=== PATIENT | female | born 1970 | race Caucasian/White ===

== ENCOUNTER → 2016-04-27 | Outpatient (CLI) | payer OTHER ==
[2016-04-27 15:06] VITALS: BMI 35.7
[2016-04-27 15:37] VITALS: BP 146/77; PULSE 74; TEMP 99
--- NOTE | 2016-04-29 21:55 | PN ---
DATE OF SERVICE: 04/27/2016 CHIEF COMPLAINT: Followup, gastric bypass. HISTORY OF PRESENT ILLNESS: Pina Encinas is a 45-year-old female who is status post Joaquín-en-Y gastric bypass on 01/18/2016. She is now over 3 months out. Her highest weight for her 5-foot 4-inch frame was 289 pounds. [place] body weight is 144 pounds. Today she comes in weighing 208 pounds. Lifetime weight loss is already 81 pounds. Her weight loss since her last visit is another 22 pounds. Body mass index has been reduced from 49.7 to 35.8. Percent excess weight loss is 56%. Total BMI is already down by 13.9 points. She has a new diagnosis of psoriatic arthritis, where she had moderate joint involvement including erythema of the skin. She has been on a month-long steroid taper and has amazingly not gained any moderate or significant weight. Her laundry agent is Dr. Dos Santos. She does report some troubles with swallowing, particularly with moderate textured foods such as steak. She is overall very happy with her level of weight loss. She still has some troubles with her new image. Separately she also reports pain from her previous pelvic reconstruction at [facility], where she requires additional surgery. She reports eating expected amount of protein of over 65 grams daily. PAST MEDICAL HISTORY: 1. Morbid obesity. 2. Hypothyroidism. 3. Anxiety. 4. Depression. 5. Diabetes type 2. 6. Panniculitis. 7. Intra-abdominal adhesions 8. Chronic diarrhea. 9. Gastroesophageal reflux disease. 10. Pelvic adhesions. PAST SURGICAL HISTORY: 1. Partial thyroidectomy. 2. Hysterectomy. 3. Bladder suspension. 4. Upper endoscopy. 5. Colonoscopy. 6. Pelvic reconstruction at [facility] in March 2015. 7. Cardiac catheterization one week ago. 8. Status post Joaquín-en-Y gastric bypass 01/18/2016. MEDICATIONS: 1. Prednisone. 2. Wellbutrin. 3. Prilosec. 4. Nystatin powder. 5. Singulair. 6. Synthroid. 7. [place]. 8. Prozac. ALLERGIES: Initially PENICILLIN. SOCIAL HISTORY: Lifelong nontobacco user. FAMILY HISTORY: Pertinent for fatty liver disease including gallbladder disorders, also has morbid obesity in her family. REVIEW OF ORGAN SYSTEMS: CONSTITUTIONAL: Highest weight of 289 pounds. [place] body weight 144 pounds for her 5-foot, 4-inch frame. Present weight of 208 pounds. Total weight loss of 81 pounds. Percent excess weight loss of 56%. Body mass index reduced from 49.7 to 35.7. ENDOCRINE: History of hypothyroidism. MUSCULOSKELETAL: Improvement of diffuse osteoarthritis of the joints, particularly in knees, hips and hands, after being treated for psoriatic arthritis with a prednisone taper. PSYCH: Still persistent history of depression. CARDIOVASCULAR: Improvement of hypertension, where she is now off medications related to her hypertension. GASTROINTESTINAL: Denies any gastroesophageal reflux disease, as it has now resolved. Only concerns include intermittent dysphagia, particularly with textured foods. RESPIRATORY: History of obstructive sleep apnea. ENDOCRINE: History of hypothyroidism including diabetes type 2. GENITOURINARY: History of pelvic reconstruction. Also history of bladder prolapse. HEENT: Denies troubles with vision or hearing. NEURO: Has headache and seizure disorders. HEMATOLOGIC: Denies any easy bruising. PHYSICAL EXAM: VITAL SIGNS: 99.0, 74, 16, 146/77, 5 feet 4 inches, 208 pounds. Body mass index 35.8. ABDOMEN: No palpable incisional hernias. All incisions completely granulated. Soft, nontender, nondistended. GENERAL: Well-developed female in no acute distress. NEURO: No focal or lateralizing signs. Cranial nerves II through XII grossly within normal limits. PSYCH: Appropriate affect. Alert and oriented to person, place, and time. HEENT: No scleral icterus. NECK: Supple without lymphadenopathy. CHEST: Nonlabored respirations. CARDIOVASCULAR: Regular rate. MUSCULOSKELETAL: No clubbing, cyanosis, or edema. ASSESSMENT: 1. Morbid obesity due to excess calories. 2. Body mass index reduced from 49.7 to 35.8. 3. Status post Joaquín-en-Y gastric bypass. 4. Dietary surveillance and counseling. 5. Psoriatic arthritis. 6. Dysphagia to solid foods. 7. Active steroid exposure. 8. Osteoarthritis, improved. 9. Hypothyroidism. 10. Depression. 11. Elevated liver enzymes. 12. Fatty liver disease. 13. Vitamin D deficiency. 14. History of a bladder suspension. 15. Diabetes type 2, his-iiegndi-tqczausji, now resolved. 16. Obstructive sleep apnea, now resolved. 17. Gastroesophageal reflux disease, now resolved. 18. Hypertensive heart disease, now resolved. PLAN: 1. She has been doing quite well as of recent after a fairly tyrese postoperative course with abdominal pain from skin infection, which has completely resolved. 2. She will be closely monitored, as she is on steroid therapy, and would recommend continued Prilosec use. 3. She is to undergo additional surgical intervention for the pelvis, whereby she is cleared from a bariatric standpoint to proceed. 4. I have recommended a bariatric metabolic panel to identify any nutritional deficiencies which will interfere with her wound healing. 5. With her dysphagia to solid textured foods, she may also benefit from upper endoscopy with balloon dilatation. 6. Recommend followup at [facility]. DEL
== END | disposition home or self-care (01) ==
LOC: BARWHC3 13:49
PROVIDERS: ATTEND Surgery Plastic and Reconstructive Surgery
DX: Z48.815 Encounter for surgical aftercare following surgery on the digestive system (principal); Z71.3 Dietary counseling and surveillance; E66.01 Morbid (severe) obesity due to excess calories; Z68.35 Body mass index [BMI] 35.0-35.9, adult; E21.1 Secondary hyperparathyroidism, not elsewhere classified; E89.1 Postprocedural hypoinsulinemia; D50.8 Other iron deficiency anemias; E44.0 Moderate protein-calorie malnutrition; E55.9 Vitamin D deficiency, unspecified; Z98.84 Bariatric surgery status; K74.1 Hepatic sclerosis; N19 Unspecified kidney failure; K50.90 Crohn's disease, unspecified, without complications; L40.50 Arthropathic psoriasis, unspecified; Z79.899 Other long term (current) drug therapy; Z88.0 Allergy status to penicillin; R13.10 Dysphagia, unspecified; T75.89XA Other specified effects of external causes, initial encounter; X58.XXXA Exposure to other specified factors, initial encounter; M19.90 Unspecified osteoarthritis, unspecified site; E03.9 Hypothyroidism, unspecified; F32.9 Major depressive disorder, single episode, unspecified; R79.89 Other specified abnormal findings of blood chemistry; K76.0 Fatty (change of) liver, not elsewhere classified; Z98.890 Other specified postprocedural states
CPT/HCPCS: 97803; G0463; 99211

== ENCOUNTER → 2016-06-29 | Outpatient (CLI) | payer OTHER ==
[2016-06-29 16:44] VITALS: BP 162/95; PULSE 88; TEMP 98.5; BMI 33.7
--- NOTE | 2016-07-26 22:44 | P.PN ---
Progress Note - Text DATE OF SERVICE: 06/29/2016. CHIEF COMPLAINT: Follow-up gastric bypass. HISTORY OF PRESENT ILLNESS: Pina Encinas is a 45-year-old female who is status post Joaquín-en-Y gastric bypass on 01/18/2016. She is now 6 months out. For her height of 5 foot 4 inches, her ideal body weight is 144 pounds. Today she comes in weighing 196 pounds. Her highest weight was 289 pounds. She has already lost 93 pounds. Body mass index was reduced from 49.7 down to 33.8. BMI point reduction is 16 points. She has already achieved 64% weight loss in 6 months. Since her last visit approximately a little over 4+ months ago she has lost another 12 pounds. She comes in primarily with complaints of decreased appetite. She is now under 200 pounds. She was diagnosed with rheumatoid arthritis, which she sees a rubber molder. Now she presents for further evaluation and management. She also reports moderate personal stressors in her life which is also affecting her blood pressure. She is off CPAP machine as well. PAST MEDICAL HISTORY: 1. Morbid obesity. 2. Hypothyroidism. 3. Anxiety. 4. Depression. 5. Diabetes type 2. 6. Panniculitis. 7. Intra-abdominal adhesions 8. Chronic diarrhea. 9. Gastroesophageal reflux disease. 10. Rheumatoid Arthritis. PAST SURGICAL HISTORY: 1. Partial thyroidectomy. 2. Hysterectomy. 3. Bladder suspension. 4. Upper endoscopy. 5. Colonoscopy. 6. Pelvic reconstruction at [facility] in March 2015. 7. Cardiac catheterization one week ago. 8. Status post Joaquín-en-Y gastric bypass. MEDICATIONS: 1. Hyzaar. 2. Prednisone. 3. Wellbutrin. 4. Prilosec. 5. Nystatin powder. 6. Singulair. 7. Synthroid. 8. Prozac. ALLERGIES: Resolved PENICILLIN. SOCIAL HISTORY: Lifelong nontobacco user. FAMILY HISTORY: Pertinent for fatty liver disease including gallbladder disorders, also has morbid obesity in her family. REVIEW OF SYSTEMS: CONSTITUTIONAL: Highest weight is 289 pounds. [place] body weight of 144 pounds. She has lost 93 pound in the last 6 months. Percent excess weight loss is 64%. Body mass index is reduced from 49.7 down to 33.8. Total BMI point reduction is 16 points. She is only 52 pounds overweight. RESPIRATORY: She is to discontinue her CPAP machine. Sleep apnea has now resolved. CARDIOVASCULAR: She is on blood pressure medication secondary to minor stress in her life. MUSCULOSKELETAL: Moderate reduction of bilateral hip and knee and lower back pain. Rheumatologic: Diagnosed with rheumatoid arthritis. Currently on steroids as a result. GASTROINTESTINAL: No reports of gastroesophageal reflux which is resolved. Denies dumping syndrome otherwise. ENDOCRINE: History of hypothyroidism including diabetes type 2 now resoled. GENITOURINARY: History of pelvic reconstruction. Also history of bladder prolapse. HEENT: Denies troubles with vision or hearing. NEURO: Has headache and seizure disorders. PSYCH: Has anxiety including depression. HEMATOLOGIC: Denies any easy bruising. PHYSICAL EXAM: VITAL SIGNS: 98.5, 88, 162/95, 5 foot 4, 196 pounds. Body mass index of 33.8. ABDOMEN: Soft, nontender, nondistended. No palpable incisional hernias. Pannus extends over pubis by at least 5 cm. Mild hyperemia consistent with panniculitis. GENERAL: Well-developed female in no acute distress. NEURO: No focal or lateralizing signs. Cranial nerves II through XII grossly within normal limits. PSYCH: Appropriate affect. Alert and oriented to person, place, and time. HEENT: No scleral icterus. Extraocular movements grossly intact. No nasal drainage. NECK: Supple without lymphadenopathy. CHEST: Nonlabored respirations. CARDIOVASCULAR: Regular rate. Regular rhythm. MUSCULOSKELETAL: No clubbing, cyanosis, or edema. ASSESSMENT: 1. Morbid obesity due to excess calories, now resolved. 2. Body mass index reduced from 49.7 down to 33.8. 3. Osteoarthritis. 4. Hypothyroidism. 5. Depression. 6. Elevated liver enzymes, improved. 7. Fatty liver disease. 8. Vitamin D deficiency. 9. Obesity with body mass index is 33.8. 10. History of intra-abdominal adhesions. 11. Left ovarian cyst. 12. History of a bladder suspension. 13. Diabetes type 2, [id number]. 14. Obstructive sleep apnea. 15. Gastroesophageal reflux disease, resolved. 17. History of atypical chest pain. 18. Hypertensive heart disease. 19. Osteoarthritis, improved.. 20. Status post Joaquín-en-Y gastric bypass. 21. Social stressors aggravating hypertension. 22. Osteoarthritis lower back, improved. 23. Osteoarthritis of bilateral hips, improved. 24. Osteoarthritis bilateral knees, improved. 25. Panniculitis. PLAN: 1. Recommend bariatric metabolic panel as she is long overdue. She reports having her blood work done at her local facility. However, blood work is still pending at this time. 2. She is also pending additional procedures for pelvic surgery which she has been cleared. 3. On exam, she has panniculitis for which nystatin powder is advised.
== END | disposition home or self-care (01) ==
LOC: BARWHC3 15:22
PROVIDERS: ATTEND Surgery Plastic and Reconstructive Surgery
DX: Z48.815 Encounter for surgical aftercare following surgery on the digestive system (principal); E66.9 Obesity, unspecified; Z68.33 Body mass index [BMI] 33.0-33.9, adult; Z98.84 Bariatric surgery status; Z71.3 Dietary counseling and surveillance; I11.9 Hypertensive heart disease without heart failure; M47.896 Other spondylosis, lumbar region; M16.0 Bilateral primary osteoarthritis of hip; M17.0 Bilateral primary osteoarthritis of knee; M79.3 Panniculitis, unspecified; Z79.899 Other long term (current) drug therapy; M06.9 Rheumatoid arthritis, unspecified
CPT/HCPCS: 97803; G0463; 99211

== ENCOUNTER → 2016-10-19 | Outpatient (CLI) | payer OTHER ==
--- NOTE | 2016-10-19 16:56 | P.PN ---
Progress Note - Text Patient left without being seen.
== END | disposition home or self-care (01) ==
LOC: BARWHC3 14:22
PROVIDERS: ATTEND Surgery Plastic and Reconstructive Surgery
DX: Z53.9 Procedure and treatment not carried out, unspecified reason (principal)

== ENCOUNTER → 2016-11-09 | Outpatient (CLI) | payer OTHER ==
[2016-11-09 14:56] VITALS: BP 143/69; PULSE 71; TEMP 98; BMI 31.9
[2016-11-09 15:55] LABS: CH 30.3; CHCM 33.4; HCT 37.8 % (34.0-46.0); HDW 2.35; HGB 12.4 gm/dL (11.4-16.0); MCH 29.9 pg (25.0-35.0); MCHC 32.8 g/dL (31.0-37.0); MCV 91.2 fL (80.0-100.0); Mean Platelet Volume 7.9; RBC 4.14 m/uL (3.80-5.40); RDW 14.8 % (11.5-15.5); WBC 7.3 k/uL (3.8-10.6)
[2016-11-09 16:18] LABS: Prothrombin Time 10.5 sec (9.0-12.0)
[2016-11-09 17:34] LABS: ALT 44 U/L (9-52); AST 40 U/L (14-36); Alkaline Phosphatase 58 U/L (38-126); Anion Gap 10 mmol/L; Blood Urea Nitrogen 15 mg/dL (7-17); Calcium 9.8 mg/dL (8.4-10.2); Carbon Dioxide 28 mmol/L (22-30); Chloride 102 mmol/L (98-107); Cholesterol 165 mg/dL (<200); Glucose 79 mg/dL (74-99); HDL Cholesterol 49 mg/dL (40-60); Iron 57 ug/dL (37-170); Magnesium 2.1 mg/dL (1.6-2.3); Non-African American GFR(MDRD) >60 (>60 ml/min/1.73 sqM); Phosphorus 4.5 mg/dL (2.5-4.5); Potassium 4.4 mmol/L (3.5-5.1); Sodium 140 mmol/L (137-145); Total Bilirubin 0.5 mg/dL (0.2-1.3); Total Protein 6.9 g/dL (6.3-8.2)
[2016-11-09 17:42] LABS: % Iron Saturation 14.7 % (20-50); Total Iron Binding Capacity 389 ug/dL (265-497)
[2016-11-09 18:21] LABS: Hemoglobin A1C 5.5 % (4.2-6.1)
[2016-11-09 18:36] LABS: Vitamin B12 792 pg/mL (239-931)
[2016-11-12 20:57] LABS: Selenium 153 mcg/L (63-160)
--- NOTE | 2016-12-17 14:30 | P.PN ---
Progress Note - Text DATE OF SERVICE: 11/09/2016. CHIEF COMPLAINT: Follow-up gastric bypass. HISTORY OF PRESENT ILLNESS: Pina Encinas is a 47-year-old female who is status post Joaquín-en-Y gastric bypass on 01/18/2016. She is now 9 months out. For her height of 5 foot 4 inches, her ideal body weight is 144 pounds. Today she comes in weighing 186 pounds. Her highest weight was 289 pounds. She has already lost 103 pounds. Body mass index was reduced from 49.7 down to 31.9. She has achieved 71% excess weight loss. She has lost another 11 pounds in 4 months. She has had long-standing problems with mesh removal from a bladder suspension surgery. In fact, she is to undergo another procedure. Her main concern today includes chronic panniculitis of her pannus. She has been on prescribed powders and medicated creams without improvement in her symptoms for over 1 year. She is evaluating for panniculectomy. No reports of nausea or vomiting. No reports of reflux disease. Her depression is stable. PAST MEDICAL HISTORY: 1. Morbid obesity. 2. Hypothyroidism. 3. Anxiety. 4. Depression. 5. Diabetes type 2. 6. Panniculitis. 7. Intra-abdominal adhesions 8. Chronic diarrhea. 9. Gastroesophageal reflux disease. 10. Rheumatoid Arthritis. PAST SURGICAL HISTORY: 1. Partial thyroidectomy. 2. Hysterectomy. 3. Bladder suspension. 4. Upper endoscopy. 5. Colonoscopy. 6. Pelvic reconstruction at [facility] in March 2015. 7. Cardiac catheterization one week ago. 8. Status post Joaquín-en-Y gastric bypass. MEDICATIONS: 1. Hyzaar. 2. Wellbutrin. 3. Prilosec. 4. Nystatin powder. 5. Singulair. 6. Synthroid. 7. Prozac. ALLERGIES: Resolved PENICILLIN. SOCIAL HISTORY: Lifelong nontobacco user. FAMILY HISTORY: Pertinent for fatty liver disease including gallbladder disorders, also has morbid obesity in her family. REVIEW OF SYSTEMS: CONSTITUTIONAL: For her height of 5 foot 4 inches, her ideal body weight is 144 pounds. Today she comes in weighing 186 pounds. Her highest weight was 289 pounds. She has already lost 103 pounds. Body mass index was reduced from 49.7 down to 31.9. She has achieved 71% excess weight loss. She has lost another 11 pounds in 4 months. RESPIRATORY: Has asthma. Sleep apnea has now resolved. CARDIOVASCULAR: She is on blood pressure medication secondary to minor stress in her life. MUSCULOSKELETAL: Moderate reduction of bilateral hip and knee and lower back pain. RHEUMATOLOGIC: Diagnosed with rheumatoid arthritis. GASTROINTESTINAL: No reports of gastroesophageal reflux which is resolved. Denies dumping syndrome otherwise. ENDOCRINE: History of hypothyroidism. Diabetes type 2 now resoled. GENITOURINARY: History of pelvic reconstruction. Also history of bladder prolapse. HEENT: Denies troubles with vision or hearing. NEURO: Has headache and seizure disorders. PSYCH: Has anxiety including depression. HEMATOLOGIC: Denies any easy bruising. PHYSICAL EXAM: VITAL SIGNS: 186 pounds. Body mass index of 31.9. Vital Signs Temp 98 F 11/09/16 14:50 Pulse 71 11/09/16 14:50 Resp BP 143/69 11/09/16 14:50 Pulse Ox ABDOMEN: Soft, nontender, nondistended. No palpable incisional hernias. Pannus extends over pubis with hyperemia consistent with panniculitis. Weight of pannus, over 5 pounds. GENERAL: Well-developed female in no acute distress. NEURO: No focal or lateralizing signs. Cranial nerves II through XII grossly within normal limits. PSYCH: Appropriate affect. Alert and oriented to person, place, and time. HEENT: No scleral icterus. Extraocular movements grossly intact. No nasal drainage. NECK: Supple without lymphadenopathy. CHEST: Nonlabored respirations. CARDIOVASCULAR: Regular rate. Regular rhythm. MUSCULOSKELETAL: No clubbing, cyanosis, or edema. SKIN: Good skin turgor. Well perfused. ASSESSMENT: 1. Morbid obesity due to excess calories, now resolved. 2. Body mass index reduced from 49.7 down to 31.9. 4. Hypothyroidism. 5. Depression. 6. Elevated liver enzymes, improved. 7. Fatty liver disease. 8. Vitamin D deficiency. 9. History of intra-abdominal adhesions. 10. Diabetes type 2, [id number], resolved. 11. Obstructive sleep apnea, resolved. 12. Gastroesophageal reflux disease, resolved. 13. Hypertensive heart disease, resolved. 14. Status post Joaquín-en-Y gastric bypass. 15. Osteoarthritis lower back, improved. 16. Osteoarthritis of bilateral hips, improved. 17. Osteoarthritis bilateral knees, improved. 18. Panniculitis. PLAN: 1. Recommend bariatric metabolic panel. 2. She has chronic panniculitis with treatment over one year without improvement. Recommend evaluation for panniculectomy. 3. She is due to undergo additional pelvic surgery. She will need clearance from her pelvic surgery including at least 30 days between procedures. 4. She is less than 1 year out from her procedure and will reevaluate after her anniversary of 1 year, January 2017. 5. Thyroid level suppressed, recommend adjusting her Synthroid. Laboratory Last Values WBC 7.3 k/uL (3.8-10.6) 11/09/16 15:37 RBC 4.14 m/uL (3.80-5.40) 11/09/16 15:37 Hgb 12.4 gm/dL (11.4-16.0) 11/09/16 15:37 Hct 37.8 % (34.0-46.0) 11/09/16 15:37 MCV 91.2 fL (80.0-100.0) 11/09/16 15:37 MCH 29.9 pg (25.0-35.0) 11/09/16 15:37 MCHC 32.8 g/dL (31.0-37.0) 11/09/16 15:37 RDW 14.8 % (11.5-15.5) 11/09/16 15:37 Plt Count 252 k/uL (150-450) 11/09/16 15:37 PT 10.5 sec (9.0-12.0) 11/09/16 15:37 INR 1.0 (<1.2) 11/09/16 15:37 APTT 25.0 sec (22.0-30.0) 11/09/16 15:37 Sodium 140 mmol/L (137-145) 11/09/16 15:37 Potassium 4.4 mmol/L (3.5-5.1) 11/09/16 15:37 Chloride 102 mmol/L (98-107) 11/09/16 15:37 Carbon Dioxide 28 mmol/L (22-30) 11/09/16 15:37 Anion Gap 10 mmol/L 11/09/16 15:37 BUN 15 mg/dL (7-17) 11/09/16 15:37 Creatinine 0.70 mg/dL (0.52-1.04) 11/09/16 15:37 Est GFR (MDRD) Af Amer >60 (>60 ml/min/1.73 sqM) 11/09/16 15:37 Est GFR (MDRD) Non-Af >60 (>60 ml/min/1.73 sqM) 11/09/16 15:37 Glucose 79 mg/dL (74-99) 11/09/16 15:[address] Glu mg/dL 111 mg/dL 11/09/16 15:37 Hemoglobin A1c 5.5 % (4.2-6.1) 11/09/16 15:37 Calcium 9.8 mg/dL (8.4-10.2) 11/09/16 15:37 Phosphorus 4.5 mg/dL (2.5-4.5) 11/09/16 15:37 Magnesium 2.1 mg/dL (1.6-2.3) 11/09/16 15:37 Iron 57 ug/dL (37-170) 11/09/16 15:37 TIBC 389 ug/dL (265-497) 11/09/16 15:37 % Saturation 14.7 % (20-50) L 11/09/16 15:37 Ferritin 54.9 ng/mL (10.0-291.0) 11/09/16 15:37 Total Bilirubin 0.5 mg/dL (0.2-1.3) 11/09/16 15:37 AST 40 U/L (14-36) H 11/09/16 15:37 ALT 44 U/L (9-52) 11/09/16 15:37 Alkaline Phosphatase 58 U/L (38-126) 11/09/16 15:37 Total Protein 6.9 g/dL (6.3-8.2) 11/09/16 15:37 Albumin 4.3 g/dL (3.5-5.0) 11/09/16 15:37 Prealbumin 17.0 mg/dL (18.0-42.0) L 11/09/16 15:37 Triglycerides 89 mg/dL (<150) 11/09/16 15:37 Cholesterol 165 mg/dL (<200) 11/09/16 15:37 LDL Cholesterol, Calc 98 mg/dL (0-99) 11/09/16 15:37 HDL Cholesterol 49 mg/dL (40-60) 11/09/16 15:37 Vitamin A 38 ug/dL (38-106) 11/09/16 15:37 Vitamin B1 102 ug/L (38-122) 11/09/16 15:37 Vitamin B12 792 pg/mL (239-931) 11/09/16 15:37 Vitamin D 25-Hydroxy 31.3 ng/mL (30.0-100.0) 11/09/16 15:37 Folate >20.00 ng/mL (>2.75) 11/09/16 15:37 TSH 0.074 mIU/L (0.465-4.680) L 11/09/16 15:37 PTH Intact 54.9 pg/mL (14.0-72.0) 11/09/16 15:37 Copper 1498 ug/L (810-1990) 11/09/16 15:37 Selenium 153 mcg/L (63-160) 11/09/16 15:37 Zinc 60 ug/dL (60-130) 11/09/16 15:37
== END | disposition home or self-care (01) ==
LOC: BARWHC3 13:59
PROVIDERS: ATTEND Surgery Plastic and Reconstructive Surgery
DX: Z09 Encounter for follow-up examination after completed treatment for conditions other than malignant neoplasm (principal); E66.01 Morbid (severe) obesity due to excess calories; Z68.31 Body mass index [BMI] 31.0-31.9, adult; E03.9 Hypothyroidism, unspecified; F32.9 Major depressive disorder, single episode, unspecified; K76.0 Fatty (change of) liver, not elsewhere classified; M79.3 Panniculitis, unspecified; F41.9 Anxiety disorder, unspecified; Z88.0 Allergy status to penicillin; Z79.899 Other long term (current) drug therapy; Z87.19 Personal history of other diseases of the digestive system; Z98.84 Bariatric surgery status
CPT/HCPCS: 84255; 84134; 84425; 80061; 80053; 82607; 82728; 83036; 82525; 82746; 83540; 83550; 83735; 84100; 84443; 84590; 84630; 85027; 85610; 85730; 82306; 83970; 36415; G0463; 99201

== ENCOUNTER → 2017-02-01 | Outpatient (CLI) | payer OTHER ==
[2017-02-01 14:57] VITALS: BP 147/72; PULSE 70; RESP 18; TEMP 98.2; BMI 30.2
--- NOTE | 2017-04-01 23:22 | P.PN ---
Subjective Progress Note Date: 02/01/17 DATE OF SERVICE: 02/01/2017. CHIEF COMPLAINT: Follow-up gastric bypass. HISTORY OF PRESENT ILLNESS: Pina Encinas is a 46-year-old female who is status post Joaquín-en-Y gastric bypass on 01/18/2016. She is now 1 year out. For her height of 5 foot 4 inches, her ideal body weight is 144 pounds. Today she comes in weighing 176 pounds. Her highest weight was 289 pounds. She has already lost 113 pounds. Body mass index was reduced from 49.7 down to 30.2. She has achieved 78% excess weight loss. She has lost another 10 pounds in 3 months. Separately, she has had multiple surgeries for mesh removal from her pelvis. She is less than 20 pounds away from her personal goal. She is undergoing physical therapy of her pelvis. She has other concerns including chronic panniculitis for a year. She is evaluating for a panniculectomy. PAST MEDICAL HISTORY: 1. Morbid obesity. 2. Hypothyroidism. 3. Anxiety. 4. Depression. 5. Diabetes type 2. 6. Panniculitis. 7. Intra-abdominal adhesions 8. Chronic diarrhea. 9. Gastroesophageal reflux disease. 10. Rheumatoid Arthritis. 11. Asthma. 12. Hypertensive heart disease. PAST SURGICAL HISTORY: 1. Partial thyroidectomy. 2. Hysterectomy. 3. Bladder suspension. 4. Upper endoscopy. 5. Colonoscopy. 6. Pelvic reconstruction at [facility] in March 2015. 7. Cardiac catheterization one week ago. 8. Status post Joaquín-en-Y gastric bypass. MEDICATIONS: 1. Methotrexate. 2. Folic acid. 3. Humira. 4. Prilosec. 5. Singulair. 6. Hyzaar. 7. Synthroid. 8. Prozac. 9. Nystatin Powder. ALLERGIES: Resolved PENICILLIN. SOCIAL HISTORY: Lifelong nontobacco user. FAMILY HISTORY: Pertinent for fatty liver disease including gallbladder disorders, also has morbid obesity in her family. REVIEW OF SYSTEMS: CONSTITUTIONAL: For her height of 5 foot 4 inches, her ideal body weight is 144 pounds. Today she comes in weighing 176 pounds. Her highest weight was 289 pounds. She has already lost 113 pounds. Body mass index was reduced from 49.7 down to 30.2. She has achieved 78% excess weight loss. She has lost another 10 pounds in 3 months. RESPIRATORY: Has asthma. Sleep apnea has now resolved. CARDIOVASCULAR: She is on blood pressure medication secondary to minor stress in her life. MUSCULOSKELETAL: Moderate reduction of bilateral hip and knee and lower back pain. RHEUMATOLOGIC: Diagnosed with rheumatoid arthritis. GASTROINTESTINAL: No reports of gastroesophageal reflux which is resolved. Denies dumping syndrome otherwise. ENDOCRINE: History of hypothyroidism. Diabetes type 2 now resoled. GENITOURINARY: History of pelvic reconstruction. Also history of bladder prolapse. HEENT: Denies troubles with vision or hearing. NEURO: Has headache and seizure disorders. PSYCH: Has anxiety including depression. HEMATOLOGIC: Denies any easy bruising. PHYSICAL EXAM: VITAL SIGNS: 176 pounds. Body mass index of 30.2. Vital Signs Temp 98.2 F 02/01/17 14:55 Pulse 70 02/01/17 14:55 Resp 18 02/01/17 14:55 BP 147/72 02/01/17 14:55 Pulse Ox ABDOMEN: Soft, nontender, nondistended. No palpable incisional hernias. Pannus extends over pubis with hyperemia consistent with panniculitis. Weight of pannus, over 8 pounds. GENERAL: Well-developed female in no acute distress. NEURO: No focal or lateralizing signs. Cranial nerves II through XII grossly within normal limits. PSYCH: Appropriate affect. Alert and oriented to person, place, and time. HEENT: No scleral icterus. Extraocular movements grossly intact. No nasal drainage. NECK: Supple without lymphadenopathy. CHEST: Nonlabored respirations. Equal bilateral excursions. CARDIOVASCULAR: Regular rate. Regular rhythm. 2+ radial pulses. MUSCULOSKELETAL: No clubbing, cyanosis, or edema. SKIN: Good skin turgor. Well perfused. ASSESSMENT: 1. Morbid obesity due to excess calories, now resolved. 2. Body mass index reduced from 49.7 down to 30.2.. 4. Hypothyroidism. 5. Depression. 6. Elevated liver enzymes, improved. 7. Fatty liver disease. 8. Vitamin D deficiency. 9. History of intra-abdominal adhesions. 10. Diabetes type 2, [id number]-uohootkis, resolved. 11. Obstructive sleep apnea, resolved. 12. Gastroesophageal reflux disease, resolved. 13. Hypertensive heart disease, resolved. 14. Status post Joaquín-en-Y gastric bypass. 15. Osteoarthritis lower back, improved. 16. Osteoarthritis of bilateral hips, improved. 17. Osteoarthritis bilateral knees, improved. 18. Panniculitis. PLAN: 1. She has chronic panniculitis for over one year. Despite medical treatment, recommend panniculectomy. 2. Benefits and risks panniculectomy including bleeding, infection, flap failure reviewed in detail. 3. Recommend that she obtain goal weight loss prior to panniculectomy. 4. Inpatient hospitalization overnight advised. 5. DVT prophylaxis. 6. Antibiotic prophylaxis. 7. As she is 1 year out, recommend bariatric metabolic panel. Objective - Vital Signs Vital signs: Vital Signs Temp 98.2 F 02/01/17 14:55 Pulse 70 02/01/17 14:55 Resp 18 02/01/17 14:55 BP 147/72 02/01/17 14:55 Pulse Ox Intake & Output 01/31/17 02/01/17 02/01/17 18:59 06:59 18:59 Weight 79.923 kg
== END | disposition home or self-care (01) ==
LOC: BARWHC3 13:33
PROVIDERS: ATTEND Surgery Plastic and Reconstructive Surgery
DX: E66.01 Morbid (severe) obesity due to excess calories (principal); E03.9 Hypothyroidism, unspecified; F32.9 Major depressive disorder, single episode, unspecified; K76.0 Fatty (change of) liver, not elsewhere classified; E55.9 Vitamin D deficiency, unspecified; E11.9 Type 2 diabetes mellitus without complications; M16.0 Bilateral primary osteoarthritis of hip; M17.0 Bilateral primary osteoarthritis of knee; M79.3 Panniculitis, unspecified; F41.9 Anxiety disorder, unspecified; Z87.19 Personal history of other diseases of the digestive system; Z98.84 Bariatric surgery status; Z68.42 Body mass index [BMI] 45.0-49.9, adult; Z90.710 Acquired absence of both cervix and uterus; Z79.899 Other long term (current) drug therapy; Z72.0 Tobacco use
CPT/HCPCS: 97803; G0463; 99211

== ENCOUNTER → 2017-03-29 | Outpatient (CLI) | payer OTHER ==
[2017-03-29 16:19] VITALS: BP 112/74; PULSE 80; TEMP 98.2; BMI 29.9
--- NOTE | 2017-05-20 15:37 | P.PN ---
Subjective Progress Note Date: 03/29/17 DATE OF SERVICE: 03/29/2017. CHIEF COMPLAINT: Follow-up gastric bypass. HISTORY OF PRESENT ILLNESS: Pina Encinas is a 46-year-old female who is status post Joaquín-en-Y gastric bypass on 01/18/2016. She is now 1.5 years out. For her height of 5 foot 4 inches, her ideal body weight is 144 pounds. Today she comes in weighing 174 pounds. Her highest weight was 289 pounds. She has already lost 115 pounds. Body mass index was reduced from 49.7 down to 30.0. She has achieved 79% excess weight loss. She has lost another 2 pounds in 3 months. She reports chronic panniculitis despite treatment over 1-1/2 years. Separately, she has been treated for rheumatoid arthritis. She is currently on a Britni once every 2 weeks including methotrexate. She is now evaluating for panniculectomy. No reports of gastroesophageal reflux disease. No reports of hypertension. PAST MEDICAL HISTORY: 1. Morbid obesity. 2. Hypothyroidism. 3. Anxiety. 4. Depression. 5. Diabetes type 2. 6. Panniculitis. 7. Intra-abdominal adhesions 8. Chronic diarrhea. 9. Gastroesophageal reflux disease. 10. Rheumatoid Arthritis. 11. Asthma. 12. Hypertensive heart disease. PAST SURGICAL HISTORY: 1. Partial thyroidectomy. 2. Hysterectomy. 3. Bladder suspension. 4. Upper endoscopy. 5. Colonoscopy. 6. Pelvic reconstruction at [facility] in March 2015. 7. Cardiac catheterization one week ago. 8. Status post Joaquín-en-Y gastric bypass. MEDICATIONS: 1. Methotrexate. 2. Folic acid. 3. Humira. 4. Prilosec. 5. Singulair. 6. Hyzaar. 7. Synthroid. 8. Prozac. 9. Nystatin Powder. ALLERGIES: Resolved PENICILLIN. SOCIAL HISTORY: Lifelong nontobacco user. FAMILY HISTORY: Pertinent for fatty liver disease including gallbladder disorders, also has morbid obesity in her family. REVIEW OF SYSTEMS: CONSTITUTIONAL: For her height of 5 foot 4 inches, her ideal body weight is 144 pounds. Today she comes in weighing 174 pounds. Her highest weight was 289 pounds. She has already lost 115 pounds. Body mass index was reduced from 49.7 down to 30.0. She has achieved 79% excess weight loss. She has lost another pounds in 3 months. RESPIRATORY: Has asthma. Sleep apnea has resolved. CARDIOVASCULAR: She is on blood pressure medication secondary to minor stress in her life. MUSCULOSKELETAL: Moderate reduction of bilateral hip and knee and lower back pain. RHEUMATOLOGIC: Diagnosed with rheumatoid arthritis. GASTROINTESTINAL: No reports of gastroesophageal reflux which is resolved. Denies dumping syndrome otherwise. ENDOCRINE: History of hypothyroidism. Diabetes type 2 now resoled. GENITOURINARY: History of pelvic reconstruction. Also history of bladder prolapse. HEENT: Denies troubles with vision or hearing. NEURO: Has headache and seizure disorders. PSYCH: Has anxiety including depression. HEMATOLOGIC: Denies any easy bruising. PHYSICAL EXAM: VITAL SIGNS: 174 pounds. Body mass index of 30. Vital Signs Temp 98.2 F 03/29/17 16:16 Pulse 80 03/29/17 16:16 Resp BP 112/74 03/29/17 16:16 Pulse Ox ABDOMEN: Soft, nontender, nondistended. No palpable incisional hernias. Pannus extends over pubis with hyperemia consistent with panniculitis. Weight of pannus, over 9 to 10 pounds. GENERAL: Well-developed female in no acute distress. NEURO: No focal or lateralizing signs. Cranial nerves II through XII grossly within normal limits. PSYCH: Appropriate affect. Alert and oriented to person, place, and time. HEENT: No scleral icterus. Extraocular movements grossly intact. No nasal drainage. NECK: Supple without lymphadenopathy. CHEST: Nonlabored respirations. Equal bilateral excursions. CARDIOVASCULAR: Regular rate. Regular rhythm. 2+ radial pulses. MUSCULOSKELETAL: No clubbing, cyanosis, or edema. SKIN: Good skin turgor. Well perfused. ASSESSMENT: 1. Morbid obesity due to excess calories, now resolved. 2. Body mass index reduced from 49.7 down to 30. 4. Hypothyroidism. 5. Depression. 6. Elevated liver enzymes, improved. 7. Fatty liver disease. 8. Vitamin D deficiency. 9. History of intra-abdominal adhesions. 10. Diabetes type 2, [id number], resolved. 11. Obstructive sleep apnea, resolved. 12. Gastroesophageal reflux disease, resolved. 13. Hypertensive heart disease, resolved. 14. Status post Joaquín-en-Y gastric bypass. 15. Osteoarthritis lower back, improved. 16. Osteoarthritis of bilateral hips, improved. 17. Osteoarthritis bilateral knees, improved. 18. Panniculitis. PLAN: 1. She has chronic panniculitis despite medical treatment. 2. Benefits and risks panniculectomy including bleeding, infection, flap failure reviewed in detail. 3. Recommend panniculectomy. 4. Inpatient hospitalization overnight advised. 5. DVT prophylaxis. 6. Antibiotic prophylaxis. Objective - Vital Signs Vital signs: Vital Signs Temp 98.2 F 03/29/17 16:16 Pulse 80 03/29/17 16:16 Resp BP 112/74 03/29/17 16:16 Pulse Ox Intake & Output 03/28/17 03/29/17 03/29/17 18:59 06:59 18:59 Weight 79.197 kg
== END | disposition home or self-care (01) ==
LOC: BARWHC3 14:32
PROVIDERS: ATTEND Surgery Plastic and Reconstructive Surgery
DX: Z09 Encounter for follow-up examination after completed treatment for conditions other than malignant neoplasm (principal); M79.3 Panniculitis, unspecified; E66.01 Morbid (severe) obesity due to excess calories; M16.0 Bilateral primary osteoarthritis of hip; M17.0 Bilateral primary osteoarthritis of knee; K76.0 Fatty (change of) liver, not elsewhere classified; M47.9 Spondylosis, unspecified; E03.9 Hypothyroidism, unspecified; E55.9 Vitamin D deficiency, unspecified; F41.9 Anxiety disorder, unspecified; R79.89 Other specified abnormal findings of blood chemistry; F32.9 Major depressive disorder, single episode, unspecified; K66.0 Peritoneal adhesions (postprocedural) (postinfection); K52.9 Noninfective gastroenteritis and colitis, unspecified; M06.9 Rheumatoid arthritis, unspecified; J45.909 Unspecified asthma, uncomplicated; Z98.84 Bariatric surgery status; Z79.899 Other long term (current) drug therapy; Z72.0 Tobacco use; Z68.30 Body mass index [BMI] 30.0-30.9, adult
CPT/HCPCS: 99211

== ENCOUNTER → 2017-06-28 | Outpatient (CLI) | payer OTHER ==
[2017-06-28 18:09] VITALS: BP 142/75; PULSE 82; RESP 15; TEMP 98.5; BMI 30.5
--- NOTE | 2017-07-15 21:27 | P.PN ---
Subjective Progress Note Date: 06/28/17 DATE OF SERVICE: 06/28/2017 CHIEF COMPLAINT: Follow-up gastric bypass. HISTORY OF PRESENT ILLNESS: Pina Encinas is a 46-year-old female who is status post Joaquín-en-Y gastric bypass on 01/18/2016. She is now 1.5 years out. She reports undergoing more pelvic surgery for mesh removal over 6 weeks ago. He pelvic pain has improved. She reports troubles with her pannus which has been long-standing for over 2 years. She has been using Nystatin powder for over one half years. She reports limitation of movement including exercise as a result of her pannus. She reports lower back pain and painful sores of her abdomen. Now she is evaluating for panniculectomy. No reports of dumping syndrome. For her height of 5 foot 4 inches, her ideal body weight is 144 pounds. Today she comes in weighing 178 pounds. Her highest weight was 289 pounds. She has lost 111 pounds. Body mass index was reduced from 49.7 down to 30.5. She has achieved 77% excess weight loss. She has gained 3 pounds in 3 months. PAST MEDICAL HISTORY: 1. Morbid obesity, BMI 49.7 initial 2. Hypothyroidism. 3. Anxiety. 4. Depression. 5. Diabetes type 2. 6. Panniculitis. 7. Intra-abdominal adhesions 8. Chronic diarrhea. 9. Gastroesophageal reflux disease. 10. Rheumatoid Arthritis. 11. Asthma. 12. Hypertensive heart disease. PAST SURGICAL HISTORY: 1. Partial thyroidectomy. 2. Hysterectomy. 3. Bladder suspension. 4. Upper endoscopy. 5. Colonoscopy. 6. Pelvic reconstruction at [facility] in March 2015. 7. Cardiac catheterization one week ago. 8. Status post Joaquín-en-Y gastric bypass. MEDICATIONS: 1. Methotrexate. 2. Folic acid. 3. Humira. 4. Prilosec. 5. Singulair. 6. Hyzaar. 7. Synthroid. 8. Prozac. 9. Nystatin Powder. ALLERGIES: Resolved PENICILLIN. SOCIAL HISTORY: Lifelong nontobacco user. FAMILY HISTORY: Pertinent for fatty liver disease including gallbladder disorders, also has morbid obesity in her family. REVIEW OF SYSTEMS: CONSTITUTIONAL: For her height of 5 foot 4 inches, her ideal body weight is 144 pounds. Today she comes in weighing 178 pounds. Her highest weight was 289 pounds. She has lost 111 pounds. Body mass index was reduced from 49.7 down to 30.5. She has achieved 77% excess weight loss. She has gained 3 pounds in 3 months. RESPIRATORY: Has asthma. Sleep apnea has resolved. CARDIOVASCULAR: She is on blood pressure medication secondary to minor stress in her life. MUSCULOSKELETAL: Moderate reduction of bilateral hip and knee and lower back pain. RHEUMATOLOGIC: Diagnosed with rheumatoid arthritis. GASTROINTESTINAL: No reports of gastroesophageal reflux which is resolved. Denies dumping syndrome otherwise. ENDOCRINE: History of hypothyroidism. Diabetes type 2 now resoled. GENITOURINARY: History of pelvic reconstruction. Also history of bladder prolapse. HEENT: Denies troubles with vision or hearing. NEURO: Has headache and seizure disorders. PSYCH: Has anxiety including depression. HEMATOLOGIC: Denies any easy bruising. PHYSICAL EXAM: VITAL SIGNS: 178 pounds. Height 5 ft 4 inches. Body mass index of 30.5. Vital Signs Temp 98.5 F 06/28/17 17:54 Pulse 82 06/28/17 17:54 Resp 15 06/28/17 17:54 BP 142/75 06/28/17 17:54 Pulse Ox ABDOMEN: Soft, nontender, nondistended. Hyperemia of the pannus. Weight of pannus over 10 pounds. Pannus over pubis 6 cm GENERAL: Well-developed female in no acute distress. NEURO: No focal or lateralizing signs. Cranial nerves II through XII grossly within normal limits. PSYCH: Appropriate affect. Alert and oriented to person, place, and time. HEENT: No scleral icterus. Extraocular movements grossly intact. No nasal drainage. NECK: Supple without lymphadenopathy. CHEST: Nonlabored respirations. Equal bilateral excursions. CARDIOVASCULAR: Regular rate. Regular rhythm. 2+ radial pulses. MUSCULOSKELETAL: No clubbing, cyanosis, or edema. SKIN: Good skin turgor. Well perfused. ASSESSMENT: 1. Morbid obesity due to excess calories, now resolved. 2. Body mass index reduced from 49.7 down to 30.5. 4. Hypothyroidism. 5. Depression. 6. Elevated liver enzymes, improved. 7. Fatty liver disease. 8. Vitamin D deficiency. 9. History of intra-abdominal adhesions. 10. Diabetes type 2, [id number], resolved. 11. Obstructive sleep apnea, resolved. 12. Gastroesophageal reflux disease, resolved. 13. Hypertensive heart disease, resolved. 14. Status post Joaquín-en-Y gastric bypass. 15. Osteoarthritis lower back, improved. 16. Osteoarthritis of bilateral hips, improved. 17. Osteoarthritis bilateral knees, improved. 18. Panniculitis. PLAN: 1. She has a lifestyle limiting chronic infections of her pannus. Despite nystatin powder over one year, she still has symptoms. 2. Recommend panniculectomy. Benefits and risks bleeding, infection, flap failure described in detail. Placement of drains were described. 3. DVT prophylaxis. 4. Antibiotic prophylaxis. 5. Will need at minimum of 4-6 weeks of recovery.
== END | disposition home or self-care (01) ==
LOC: BARWHC3 14:48
PROVIDERS: ATTEND Surgery Plastic and Reconstructive Surgery
DX: Z09 Encounter for follow-up examination after completed treatment for conditions other than malignant neoplasm (principal); E03.9 Hypothyroidism, unspecified; F32.9 Major depressive disorder, single episode, unspecified; R74.8 Abnormal levels of other serum enzymes; K76.0 Fatty (change of) liver, not elsewhere classified; E55.9 Vitamin D deficiency, unspecified; M19.90 Unspecified osteoarthritis, unspecified site; M17.0 Bilateral primary osteoarthritis of knee; M16.0 Bilateral primary osteoarthritis of hip; M79.3 Panniculitis, unspecified; Z98.84 Bariatric surgery status; Z87.19 Personal history of other diseases of the digestive system; Z79.899 Other long term (current) drug therapy
CPT/HCPCS: 99211

== ENCOUNTER → 2017-08-09 | Outpatient (CLI) | payer OTHER ==
[2017-08-09 15:57] LABS: Basophils # (A) 0.1 k/uL (0-0.2); Basophils % (A) 1 %; Eosinophils # (A) 0.2 k/uL (0-0.7); Eosinophils % (A) 3 %; HCT 36.9 % (34.0-46.0); HGB 12.3 gm/dL (11.4-16.0); Lymphocytes # (A) 2.5 k/uL (1.0-4.8); Lymphocytes % (A) 30 %; MCH 29.2 pg (25.0-35.0); MCHC 33.5 g/dL (31.0-37.0); MCV 87.3 fL (80.0-100.0); Mean Platelet Volume 7.1; Monocytes # (A) 0.5 k/uL (0-1.0); Monocytes % (A) 6 %; Neutrophils # (A) 4.9 k/uL (1.3-7.7); Neutrophils % (A) 59 %; Platelet Count 324 k/uL (150-450); RBC 4.23 m/uL (3.80-5.40); RDW 13.3 % (11.5-15.5); WBC 8.3 k/uL (3.8-10.6)
[2017-08-09 16:39] LABS: ALT 39 U/L (9-52); AST 38 U/L (14-36); Albumin 4.5 g/dL (3.5-5.0); Alkaline Phosphatase 45 U/L (38-126); Anion Gap 13 mmol/L; Blood Urea Nitrogen 21 mg/dL (7-17); Carbon Dioxide 29 mmol/L (22-30); Chloride 100 mmol/L (98-107); Glucose 81 mg/dL (74-99); Potassium 4.6 mmol/L (3.5-5.1); Sodium 142 mmol/L (137-145); Total Bilirubin 0.6 mg/dL (0.2-1.3); Total Protein 7.1 g/dL (6.3-8.2)
== END | disposition home or self-care (01) ==
LOC: LABPAT 15:22
PROVIDERS: ATTEND Surgery Plastic and Reconstructive Surgery
DX: Z01.812 Encounter for preprocedural laboratory examination (principal)
CPT/HCPCS: 36415; 80053; 85025

== ENCOUNTER 2017-08-21 12:32 | Inpatient (IN) | payer OTHER ==
[2017-08-08 10:55] VITALS: BMI 29.7
--- NOTE | 2017-08-20 12:06 | P.GSHP ---
History of Present Illness H&P Date: 08/21/17 DATE OF SERVICE: 08/21/2017 CHIEF COMPLAINT: Panniculitis HISTORY OF PRESENT ILLNESS: Pina Encinas is a 46-year-old female who is status post Joaquín-en-Y gastric bypass on 01/18/2016. She is over 1.5 years out. She reports troubles with her pannus which has been long- standing for over 2 years. She has been using Nystatin powder for over one half years. She reports limitation of movement including exercise as a result of her pannus. She reports lower back pain and painful sores of her abdomen. Now she is evaluating for panniculectomy. For her height of 5 foot 4 inches, her ideal body weight is 144 pounds. Today she comes in weighing 178 pounds. Her highest weight was 289 pounds. She has lost 111 pounds. Body mass index was reduced from 49.7 down to 30.5. She has achieved 77% excess weight loss. PAST MEDICAL HISTORY: 1. Morbid obesity, BMI 49.7 initial 2. Hypothyroidism. 3. Anxiety. 4. Depression. 5. Diabetes type 2. 6. Panniculitis. 7. Intra-abdominal adhesions 8. Chronic diarrhea. 9. Gastroesophageal reflux disease. 10. Rheumatoid Arthritis. 11. Asthma. 12. Hypertensive heart disease. PAST SURGICAL HISTORY: 1. Partial thyroidectomy. 2. Hysterectomy. 3. Bladder suspension. 4. Upper endoscopy. 5. Colonoscopy. 6. Pelvic reconstruction at [facility] in March 2015. 7. Cardiac catheterization one week ago. 8. Status post Joaquín-en-Y gastric bypass. MEDICATIONS: 1. Methotrexate. 2. Folic acid. 3. Humira. 4. Prilosec. 5. Singulair. 6. Hyzaar. 7. Synthroid. 8. Prozac. 9. Nystatin Powder. ALLERGIES: Resolved PENICILLIN. SOCIAL HISTORY: Lifelong nontobacco user. FAMILY HISTORY: Pertinent for fatty liver disease including gallbladder disorders, also has morbid obesity in her family. REVIEW OF SYSTEMS: CONSTITUTIONAL: For her height of 5 foot 4 inches, her ideal body weight is 144 pounds. Today she comes in weighing 178 pounds. Her highest weight was 289 pounds. She has lost 111 pounds. Body mass index was reduced from 49.7 down to 30.5. She has achieved 77% excess weight loss. She has gained 3 pounds in 3 months. RESPIRATORY: Has asthma. Sleep apnea has resolved. CARDIOVASCULAR: She is on blood pressure medication secondary to minor stress in her life. MUSCULOSKELETAL: Moderate reduction of bilateral hip and knee and lower back pain. RHEUMATOLOGIC: Diagnosed with rheumatoid arthritis. GASTROINTESTINAL: No reports of gastroesophageal reflux which is resolved. Denies dumping syndrome otherwise. ENDOCRINE: History of hypothyroidism. Diabetes type 2 now resoled. GENITOURINARY: History of pelvic reconstruction. Also history of bladder prolapse. HEENT: Denies troubles with vision or hearing. NEURO: Has headache and seizure disorders. PSYCH: Has anxiety including depression. HEMATOLOGIC: Denies any easy bruising. PHYSICAL EXAM: VITAL SIGNS: 178 pounds. Height 5 ft 4 inches. Body mass index of 30.5. ABDOMEN: Soft, nontender, nondistended. Hyperemia of the pannus. Weight of pannus over 10 pounds. Pannus over pubis 6 cm GENERAL: Well-developed female in no acute distress. NEURO: No focal or lateralizing signs. Cranial nerves II through XII grossly within normal limits. PSYCH: Appropriate affect. Alert and oriented to person, place, and time. HEENT: No scleral icterus. Extraocular movements grossly intact. No nasal drainage. NECK: Supple without lymphadenopathy. CHEST: Nonlabored respirations. Equal bilateral excursions. CARDIOVASCULAR: Regular rate. Regular rhythm. 2+ radial pulses. MUSCULOSKELETAL: No clubbing, cyanosis, or edema. SKIN: Good skin turgor. Well perfused. ASSESSMENT: 1. Morbid obesity due to excess calories, now resolved. 2. Body mass index reduced from 49.7 down to 30.5. 4. Hypothyroidism. 5. Depression. 6. Elevated liver enzymes, improved. 7. Fatty liver disease. 8. Vitamin D deficiency. 9. History of intra-abdominal adhesions. 10. Diabetes type 2, [id number], resolved. 11. Obstructive sleep apnea, resolved. 12. Gastroesophageal reflux disease, resolved. 13. Hypertensive heart disease, resolved. 14. Status post Joaquín-en-Y gastric bypass. 15. Osteoarthritis lower back, improved. 16. Osteoarthritis of bilateral hips, improved. 17. Osteoarthritis bilateral knees, improved. 18. Panniculitis. PLAN: 1. She has a lifestyle limiting chronic infections of her pannus. Despite nystatin powder over one year, she still has symptoms. 2. Recommend panniculectomy. Benefits and risks bleeding, infection, flap failure described in detail. Placement of drains were described. 3. DVT prophylaxis. 4. Antibiotic prophylaxis. 5. Will need at minimum of 4-6 weeks of recovery. Past Medical History Past Medical History: Asthma, Chest Pain / Angina, Diabetes Mellitus, Fibromyalgia, GERD/Reflux, Hyperlipidemia, Hypertension, Osteoarthritis (OA), Sleep Apnea/CPAP/BIPAP, Thyroid Disorder Additional Past Medical History / Comment(s): USES C-PAP MACHINE, DDD WITH BACK PAIN, FATTY LIVER. ,TORN LT ROTATOR CUFF 2016 History of Any Multi-Drug Resistant Organisms: None Reported Past Surgical History: Appendectomy, Bariatric Surgery, Bladder Surgery, Cholecystectomy, Heart Catheterization, Hysterectomy, Tubal Ligation Additional Past Surgical History / Comment(s): partial thyroidectomy, bladder suspension w/mesh (as of 06/28/17 patient has since undergone sx 4x to have various portions of mesh removed), sinus repair surgery, bilateral knee surgery (meniscus, femur fracture on rt) 01-18-16 JOAQUÍN EN Y GASTRIC BYPASS, EGD, COLONOSCOPY Past Anesthesia/Blood Transfusion Reactions: Family History of Problems w/ Anesthesia, Motion Sickness Additional Past Anesthesia/Blood Transfusion Reaction / Comment(s): Pt has difficulty waking up. Very difficult intubation. Pts grandmother has difficulty waking and also difficult intubation. Smoking Status: Never smoker - Past Family History Mother Family Medical History: Cancer Additional Family Medical History / Comment(s): Breast CA Father Family Medical History: Cancer, CVA/TIA Additional Family Medical History / Comment(s): - stroke Medications and Allergies Home Medications Medication Instructions Recorded Confirmed Type Levothyroxine Sodium [Synthroid] 150 mcg PO DAILY 05/16/14 08/08/17 History Nystatin 100,000 Unit/gm Powd 1 applic TOPICAL BID PRN 05/16/14 08/08/17 History [Mycostatin Powder] Omeprazole [PriLOSEC] 40 mg PO DAILY 01/02/16 08/08/17 History FLUoxetine HCL [PROzac] 40 mg PO DAILY 01/25/16 08/08/17 History Losartan-Hctz 50-12.5 mg [Hyzaar 1 tab PO DAILY 06/29/16 08/08/17 History 50-12.5] Adalimumab [Humira] 10 mg SQ Q14D 02/01/17 08/08/17 History Folic Acid 0.4 mg PO DAILY 02/01/17 08/08/17 History Methotrexate Sodium [Methotrexate] 17.5 mg PO FR 02/01/17 08/08/17 History Gabapentin [Neurontin] 300 mg PO DAILY 06/28/17 08/08/17 History Cetirizine HCl [Zyrtec] 10 mg PO HS 08/08/17 08/08/17 History Multivitamins, Thera [Multivitamin 1 tab PO DAILY 08/08/17 08/08/17 History (formulary)] Vit B12 Dose Unknown 1 each PO DAILY 08/08/17 History Vit B6 Stress Formula 1 each PO DAILY 08/08/17 History Allergies Allergy/AdvReac Type Severity Reaction Status Date / Time No Known Allergies Allergy Verified 08/08/17 10:47
[~2017-08-21 12:32] MED LIST: ACETAMINOPHEN IV (For NPO) 1,000 MG in EMPTY BAG 1 BAG IVPB ONE; DEXAMETHASONE SOD PHOSPHATE 10 MG/ML 1 ML VIAL IV ONE; HEPARIN SODIUM,PORCINE 5,000 UNIT/ML 1 ML VIAL SQ ONE; LIDOCAINE 1% 20 ML VIAL (10MG/ML) FOR IV START INTRADERMA PRN; MIDAZOLAM 2 MG/2 ML VIAL IV PRN; SCOPOLAMINE 1.5MG/72HR PATCH TRANSDERM ONE; ceFAZolin IN SWFI 2 GM/20 ML SYRINGE IVP ONE; fentaNYL (PF) 50 MCG/ML 2 ML AMP IV PRN
[2017-08-21 13:16] LABS: Glucose,Whole Blood 82 mg/dL (75-99)
[2017-08-21] MEDS: LACTATED RINGERS 1,000 ML IV SCH ×2 (13:17→17:21)
[2017-08-21] MEDS ORDERED: LIDOCAINE 1% 20 ML VIAL (10MG/ML) FOR IV START INTRADERMA ONE (13:36)
[2017-08-21] MEDS: ONDANSETRON 4 MG/2 ML VIAL IVP ONE ×2 (13:36→16:55)
[2017-08-21] MEDS ORDERED: DEXAMETHASONE SOD PHOSPHATE 10 MG/ML 1 ML VIAL IV ONE (13:37)
[2017-08-21] MEDS ORDERED: SCOPOLAMINE 1.5MG/72HR PATCH TRANSDERM ONE (13:38)
[2017-08-21] MEDS ORDERED: GLYCOPYRROLATE 0.2 MG/ML 2 ML VIAL ONE (14:00)
[2017-08-21] MEDS ORDERED: LIDOCAINE 1% INJ 10MG/ML (20 ML MDV) ONE (14:00)
[2017-08-21] MEDS ORDERED: HYDROmorphone (PF) 1 MG/ML ONE (14:00)
[2017-08-21] MEDS ORDERED: ePHEDrine SULFATE/0.9% NACL/PF 50 MG/5 ML SYRINGE IV ONE (14:00)
[2017-08-21] MEDS ORDERED: SUCCINYLCHOLINE CHLORIDE 100 MG/5 ML SYR IV ONE (14:00)
[2017-08-21] MEDS ORDERED: ROCURONIUM BROMIDE 10 MG/ML 10 ML VIAL IV ONE (14:00)
[2017-08-21] MEDS ORDERED: PROPOFOL 10 MG/ML 20 ML VIAL IV ONE (14:00)
[2017-08-21] MEDS ORDERED: fentaNYL (PF) 50 MCG/ML 2 ML AMP ONE (14:00)
[2017-08-21] MEDS ORDERED: NEOSTIGMINE 1 MG/ML 10 ML VIAL ONE (14:00)
[2017-08-21] MEDS ORDERED: LACTATED RINGERS 1,000 ML IV ONE ×2 (14:29→16:13)
[2017-08-21] MEDS: HYDROmorphone 0.5 MG/0.5 ML SYRINGE IVP PRN ×4 (16:38→21:18)
--- NOTE | 2017-08-21 16:43 | P.PCN ---
Date of Procedure: 08/21/17 Preoperative Diagnosis: Adiposis panniculus, Central adiposity, panniculitis Postoperative Diagnosis: Same, ventral hernia 11 x 18 cm, reducible, initial unrelated to previous bariatric procedure Procedure(s) Performed: Panniculectomy, 4.52 pounds, ventral hernia repair without mesh 11 x 18 cm Anesthesia: JEFFERY Surgeon: Halina Joseph Contract Administrative Assistant #1: Jaron Kevin Estimated Blood Loss (ml): 400 Pathology: other (Panniculectomy) Condition: stable Disposition: floor Operative Findings: 1. Ventral hernia repair with fascial imbrication 3 2. Pannus, 4.52 pounds excised
[2017-08-21] MEDS ORDERED: TRIMETHOBENZAMIDE 100 MG/ML 2 ML VIAL IM PRN (16:44)
[2017-08-21] MEDS ORDERED: NALOXONE 0.4 MG/ML 1 ML VIAL IV PRN (16:45)
[2017-08-21] MEDS ORDERED: diphenhydrAMINE 50 MG/ML 1 ML VIAL IVP ONE (16:58)
[2017-08-21] MEDS: 0.9% NACL WITH KCL 20 MEQ/L 1,000 ML IV SCH (18:51)
[2017-08-21] MEDS: HYDROcodone/APAP 5-325MG 1 EACH TAB PO SCH ×2 (19:45→23:50)
[2017-08-21] MEDS: LORATADINE 10 MG TAB PO SCH (19:46)
[2017-08-21] MEDS: ONDANSETRON 4 MG/2 ML VIAL IVP PRN (19:46)
[2017-08-21] MEDS: ceFAZolin IN SWFI 2 GM/20 ML SYRINGE IVP SCH (21:19)
[2017-08-22] MEDS: HYDROmorphone 0.5 MG/0.5 ML SYRINGE IVP PRN ×6 (00:17→22:20)
[2017-08-22] MEDS: 0.9% NACL WITH KCL 20 MEQ/L 1,000 ML IV SCH ×3 (00:34→16:15)
[2017-08-22] MEDS: HYDROcodone/APAP 5-325MG 1 EACH TAB PO SCH ×6 (03:52→23:31)
[2017-08-22] MEDS: LEVOTHYROXINE 75 MCG TAB PO SCH (05:44)
[2017-08-22] MEDS: ceFAZolin IN SWFI 2 GM/20 ML SYRINGE IVP SCH (05:44)
[2017-08-22 07:05] LABS: Basophils % (A) 0 %; Eosinophils # (A) 0.1 k/uL (0-0.7); Eosinophils % (A) 1 %; HCT 32.6 % (34.0-46.0); HGB 10.2 gm/dL (11.4-16.0); Lymphocytes # (A) 1.6 k/uL (1.0-4.8); Lymphocytes % (A) 14 %; MCH 28.2 pg (25.0-35.0); MCHC 31.4 g/dL (31.0-37.0); Mean Platelet Volume 6.7; Monocytes # (A) 0.7 k/uL (0-1.0); Monocytes % (A) 6 %; Neutrophils # (A) 8.8 k/uL (1.3-7.7); Neutrophils % (A) 77 %; Platelet Count 286 k/uL (150-450); RBC 3.63 m/uL (3.80-5.40); RDW 13.6 % (11.5-15.5); WBC 11.4 k/uL (3.8-10.6)
[2017-08-22] MEDS: FLUoxetine HCL 20 MG CAP PO SCH (07:58)
[2017-08-22] MEDS: ENOXAPARIN 40 MG/0.4 ML SYRINGE SQ SCH (07:58)
[2017-08-22] MEDS: GABAPENTIN 300 MG CAP PO SCH (07:59)
[2017-08-22] MEDS: FOLIC ACID 1 MG TAB PO SCH (07:59)
[2017-08-22] MEDS: LOSARTAN-HCTZ 50-12.5 MG 1 EACH TAB PO SCH (10:50)
--- NOTE | 2017-08-22 11:31 | P.PN ---
<GurvinderClareHilaria M - Last Filed: 08/22/17 11:03> Subjective Progress Note Date: 08/22/17 46-year-old female seen and examined at bedtime no new events. Patient reports having surgical discomfort pain medication effective for pain control. Patient is postop Panniculectomy, 4.52 pounds, ventral hernia repair without mesh due to Adiposis panniculus, Central adiposity, panniculitis patient is status post eren-en-y gastric bypass December 2015. White count 11.4 hemoglobin 10 afebrile heart rate 60s to 80s sats on 2 L 98% Objective - Vital Signs Vital signs: Vital Signs Temp 97.3 F L 08/22/17 07:00 Pulse 63 08/22/17 07:00 Resp 16 08/22/17 07:00 BP 107/60 08/22/17 07:00 Pulse Ox 98 08/22/17 07:45 Intake & Output 08/21/17 08/22/17 08/22/17 18:59 06:59 18:59 Intake Total 2350 1725 Output Total 600 665 250 Balance 1750 1060 -250 Weight 76.204 kg Intake: IV 2350 Intake, IV Titration 1725 Amount 0.9% NaCl with KCl 20 Meq 1725 /l 1,000 ml @ 150 mls/hr IV [facility]6H40M [facility] Rx#: [id number] Output: Drainage 50 165 Right abdomen 10 60 left abdomen 40 105 Urine 150 500 250 Uretheral (Lu) 500 250 Estimated Blood Loss 400 Other: Voiding Method Indwelling Catheter Indwelling Catheter - Exam Physical exam 46-year-old female sitting up on the edge of the bed physical therapy at the bedside Lungs adequate air movement bilaterally Heart S1-S2 audible regular Abdomen abdominal binder in place with ABRAHAM drain in place Extremities no edema noted - Labs CBC & Chem 7: 08/22/17 06:36 Labs: Abnormal Lab Results - Last 24 Hours (Table) 08/22/17 Range/Units 06:36 WBC 11.4 H (3.8-10.6) k/uL RBC 3.63 L (3.80-5.40) m/uL Hgb 10.2 L (11.4-16.0) gm/dL Hct 32.6 L (34.0-46.0) % Neutrophils # 8.8 H (1.3-7.7) k/uL Assessment and Plan Assessment: Impression Status post August 21 Panniculectomy, 4.52 pounds removed, ventral hernia repair without mesh 11 x 18 cm Adiposis panniculus, Central adiposity, panniculitis Status post Eren-en-Y gastric bypass 01/18/2016 History of morbid obesity initial BMI 49 Anxiety depressive disorder Rheumatoid arthritis Hypothyroid Achieved 77% excessive weight loss BMI initially 49 down to 30 Plan Continue postop surgical care Do not remove the abdominal binder PT OT eval Pain control Home meds as appropriate DVT and GI prophylaxis Anticipate discharge in the next 24 hours Increase activity The above impression and plan of care have been discussed and directed by signing physician. Hilaria Hollins nurse practitioner acting as scribe for signing physician. <Halina Joseph N - Last Filed: 08/23/17 20:15> Objective - Vital Signs Vital signs: Vital Signs Temp 99.8 F H 08/23/17 19:25 Pulse 76 08/23/17 19:25 Resp 18 08/23/17 19:25 BP 145/85 08/23/17 19:25 Pulse Ox 92 L 08/23/17 19:25 Intake & Output 08/23/17 08/23/17 08/24/17 06:59 18:59 06:59 Intake Total 1630 500 Output Total 915 1525 Balance 715 -1025 Intake: Intake, IV Titration 1150 Amount 0.9% NaCl with KCl 20 Meq 1150 /l 1,000 ml @ 150 mls/hr IV .Q6H40M [facility] Rx#: [id number] Oral 480 500 Output: Drainage 165 50 Right abdomen 100 25 left abdomen 65 25 Urine 750 1475 Straight 750 Uretheral (Lu) 1175 Other: Voiding Method Indwelling Catheter - Labs CBC & Chem 7: 08/22/17 22:36 Labs: Abnormal Lab Results - Last 24 Hours (Table) 08/22/17 Range/Units 22:36 RBC 3.33 L (3.80-5.40) m/uL Hgb 9.6 L (11.4-16.0) gm/dL Hct 29.6 L (34.0-46.0) %
[2017-08-22] MEDS: MULTIVITAMINS, THERA 1 EACH TAB PO SCH (11:57)
[2017-08-22] MEDS: LACTATED RINGERS 1,000 ML IV SCH (12:51)
[2017-08-22] MEDS: TAMSULOSIN 0.4 MG CAP.ER.24H PO SCH (16:51)
[2017-08-22] MEDS: LORATADINE 10 MG TAB PO SCH (19:51)
[2017-08-22] MEDS ORDERED: TAMSULOSIN 0.4 MG CAP.ER.24H PO STA (22:00)
[2017-08-22 22:56] LABS: HCT 29.6 % (34.0-46.0); HGB 9.6 gm/dL (11.4-16.0); MCH 28.8 pg (25.0-35.0); MCHC 32.4 g/dL (31.0-37.0); MCV 88.8 fL (80.0-100.0); Mean Platelet Volume 6.7; Platelet Count 222 k/uL (150-450); RBC 3.33 m/uL (3.80-5.40)
[2017-08-23] MEDS: ONDANSETRON 4 MG/2 ML VIAL IVP PRN ×2 (02:05→12:24)
[2017-08-23] MEDS: HYDROcodone/APAP 5-325MG 1 EACH TAB PO SCH ×2 (03:55→07:54)
[2017-08-23] MEDS: HYDROmorphone 0.5 MG/0.5 ML SYRINGE IVP PRN (04:17)
[2017-08-23] MEDS: LEVOTHYROXINE 75 MCG TAB PO SCH (04:37)
[2017-08-23] MEDS: LOSARTAN-HCTZ 50-12.5 MG 1 EACH TAB PO SCH (08:52)
[2017-08-23] MEDS: FOLIC ACID 1 MG TAB PO SCH (08:54)
[2017-08-23] MEDS: GABAPENTIN 300 MG CAP PO SCH (08:54)
[2017-08-23] MEDS: ENOXAPARIN 40 MG/0.4 ML SYRINGE SQ SCH (08:54)
[2017-08-23] MEDS: FLUoxetine HCL 20 MG CAP PO SCH (08:54)
--- NOTE | 2017-08-23 09:04 | P.PN ---
<Clare Hollinsne M - Last Filed: 08/23/17 08:59> Subjective Progress Note Date: 08/23/17 46-year-old female seen and examined. Patient stated that she just ambulating in the hallway. Continues to have episodes a urinary retention requiring straight cath. 230 in the morning post void residual was 250 patient states after surgery often has urinary retention issues. Flomax was started. Additionally patient states still needing to take IV dilaudid for pain control states is tolerating a diet postop Panniculectomy, 4.52 pounds, ventral hernia repair without mesh due to Adiposis panniculus, Central adiposity, panniculitis done on August patient is status post eren-en-y gastric bypass December 2015. Objective - Vital Signs Vital signs: Vital Signs Temp 99.3 F 08/23/17 07:00 Pulse 88 08/23/17 07:00 Resp 17 08/23/17 07:00 BP 112/70 08/23/17 07:00 Pulse Ox 92 L 08/23/17 07:00 Intake & Output 08/22/17 08/23/17 08/23/17 18:59 06:59 18:59 Intake Total 360 1630 Output Total 705 915 Balance -345 715 Intake: Intake, IV Titration 1150 Amount 0.9% NaCl with KCl 20 Meq 1150 /l 1,000 ml @ 150 mls/hr IV .Q6H40M [facility] Rx#: [id number] Oral 360 480 Output: Drainage 55 165 Right abdomen 30 100 left abdomen 25 65 Urine 650 750 Straight 400 750 Uretheral (Lu) 250 Other: Voiding Method Indwelling Catheter - Exam Physical exam 46-year-old female resting in bed appears in no acute distress been up ambulating in the hallway Lungs adequate air movement bilaterally on room air sats are 92% no cough noted Heart S1-S2 audible regular Abdomen surgical abdominal binder in place [address] surgical tenderness appropriate states no nausea vomiting. Does report urinary retention not able to urinate no stool states is not passing gas Extremities no edema noted - Labs CBC & Chem 7: 08/22/17 22:36 Labs: Abnormal Lab Results - Last 24 Hours (Table) 08/22/17 Range/Units 22:36 RBC 3.33 L (3.80-5.40) m/uL Hgb 9.6 L (11.4-16.0) gm/dL Hct 29.6 L (34.0-46.0) % Assessment and Plan Assessment: Impression Status post August 21 Panniculectomy, 4.52 pounds removed, ventral hernia repair without mesh 11 x 18 cm Adiposis panniculus, Central adiposity, panniculitis Status post Eren-en-Y gastric bypass 01/18/2016 History of morbid obesity initial BMI 49 Anxiety depressive disorder Rheumatoid arthritis Hypothyroid Achieved 77% excessive weight loss BMI initially 49 down to 30 Plan Continue flomax as ordered Continue postop surgical care Do not remove the abdominal binder PT OT eval Pain control Home meds as appropriate DVT and GI prophylaxis Anticipate discharge in the next 24 hours Increase activity The above impression and plan of care have been discussed and directed by signing physician. Hilaria oHllins nurse practitioner acting as scribe for signing physician. <Halina Joseph N - Last Filed: 08/23/17 20:15> Objective - Vital Signs Vital signs: Vital Signs Temp 99.8 F H 08/23/17 19:25 Pulse 76 08/23/17 19:25 Resp 18 08/23/17 19:25 BP 145/85 08/23/17 19:25 Pulse Ox 92 L 08/23/17 19:25 Intake & Output 08/23/17 08/23/17 08/24/17 06:59 18:59 06:59 Intake Total 1630 500 Output Total 915 1525 Balance 715 -1025 Intake: Intake, IV Titration 1150 Amount 0.9% NaCl with KCl 20 Meq 1150 /l 1,000 ml @ 150 mls/hr IV .Q6H40M [facility] Rx#: [id number] Oral 480 500 Output: Drainage 165 50 Right abdomen 100 25 left abdomen 65 25 Urine 750 1475 Straight 750 Uretheral (Lu) 1175 Other: Voiding Method Indwelling Catheter - Labs CBC & Chem 7: 08/22/17 22:36 Labs: Abnormal Lab Results - Last 24 Hours (Table) 08/22/17 Range/Units 22:36 RBC 3.33 L (3.80-5.40) m/uL Hgb 9.6 L (11.4-16.0) gm/dL Hct 29.6 L (34.0-46.0) %
[2017-08-23] MEDS: MULTIVITAMINS, THERA 1 EACH TAB PO SCH (12:19)
[2017-08-23] MEDS: HYDROcodone/APAP 5-325MG 1 EACH TAB PO PRN ×3 (12:19→20:36)
[2017-08-23 13:41] LABS: Iron Saturation 12.31 (12.00-45.00)
[2017-08-23] MEDS: LACTATED RINGERS 1,000 ML IV SCH (13:45)
[2017-08-23 19:26] VITALS: RESP 18
--- NOTE | 2017-08-23 20:16 | P.PN ---
Progress Note - Text Progress Note Date: 08/23/17 Opiod prescription form filled with questions answered of use, misuse and disposal of narcotics. [place] 7.5 mg 40 tabs no refill for 1 week written. Drains at bedside stripped. Abdominal flaps viable. No infection or cellulitis. Abdominal binder re-fitted. Plan for discharge tomorrow. All questions answered. Tabitha discontinued at bedside by me.
[2017-08-23] MEDS: LORATADINE 10 MG TAB PO SCH (20:36)
[2017-08-23] MEDS: TAMSULOSIN 0.4 MG CAP.ER.24H PO SCH (20:36)
[2017-08-23] MEDS: PANTOPRAZOLE 40 MG TABLET PO SCH (21:21)
[2017-08-24] MEDS: ONDANSETRON 4 MG/2 ML VIAL IVP PRN ×2 (01:42→08:36)
[2017-08-24] MEDS: HYDROcodone/APAP 5-325MG 1 EACH TAB PO PRN ×2 (05:11→09:11)
[2017-08-24] MEDS: LEVOTHYROXINE 75 MCG TAB PO SCH (06:19)
[2017-08-24] MEDS ORDERED: SODIUM FERRIC GLUCONAT-SUCROSE 125 MG in SODIUM CHLORIDE 0.9% 100 ML IVPB STA (06:20)
[2017-08-24] MEDS: ENOXAPARIN 40 MG/0.4 ML SYRINGE SQ SCH (08:44)
[2017-08-24 09:49] VITALS: BP 139/84; PULSE 90; TEMP 98.5
[2017-08-24] MEDS: GABAPENTIN 300 MG CAP PO SCH (10:33)
[2017-08-24] MEDS: FOLIC ACID 1 MG TAB PO SCH (10:33)
[2017-08-24] MEDS: FLUoxetine HCL 20 MG CAP PO SCH (10:33)
[2017-08-24] MEDS: PANTOPRAZOLE 40 MG TABLET PO SCH (10:34)
[2017-08-24] MEDS: LOSARTAN-HCTZ 50-12.5 MG 1 EACH TAB PO SCH (10:34)
--- NOTE | 2017-08-24 12:05 | P.DS ---
Providers Date of admission: 08/21/17 16:30 Expected date of discharge: 08/24/17 Attending physician: Halina Joseph Primary care physician: Alexis Holland MD Hospital Course: 46-year-old female who is status post Joaquín-en-Y gastric bypass on 01/18/2016. For treatment of morbid obesity. The BMI was reduced from 49-30 patient achieved 77 percent excessive weight loss. Patient was having significant discomfort difficult to ambulate due to excessive panniculus patient presented to undergo an elective Panniculectomy, 4.52 pounds, ventral hernia repair without mesh due to Adiposis panniculus, Central adiposity, panniculitis On the day of discharge patient was up ambulatory on the postop Panniculectomy, 4.52 pounds, ventral hernia repair without mesh due to Adiposis panniculus, Central adiposity, panniculitis Impression discharge and diagnosed Status post August 21 Panniculectomy, 4.52 pounds removed, ventral hernia repair without mesh 11 x 18 cm Adiposis panniculus, Central adiposity, panniculitis Status post Joaquín-en-Y gastric bypass 01/18/2016 History of morbid obesity initial BMI 49 Anxiety depressive disorder Rheumatoid arthritis Hypothyroid Achieved 77% excessive weight loss BMI initially 49 down to 30 The above impression and plan of care have been discussed and directed by signing physician. Hilaria Hollins nurse practitioner acting as scribe for signing physician. Plan - Discharge Summary Discharge Rx Participant: Yes New Discharge Prescriptions: New Loratadine [Claritin] 10 mg PO HS tab HYDROcodone/APAP 7.5-325MG [[place] 7.5-325] 1 tab PO Q4H PRN 3 Days #40 tab PRN Reason: Pain Docusate [Colace] 100 mg PO DAILY #20 capsule Tamsulosin [Flomax] 0.4 mg PO DAILY #5 cap Continue Levothyroxine Sodium [Synthroid] 150 mcg PO DAILY Omeprazole [PriLOSEC] 40 mg PO DAILY FLUoxetine HCL [PROzac] 40 mg PO DAILY Losartan-Hctz 50-12.5 mg [Hyzaar 50-12.5] 1 tab PO DAILY Folic Acid 0.4 mg PO DAILY Gabapentin [Neurontin] 300 mg PO DAILY Multivitamins, Thera [Multivitamin (formulary)] 1 tab PO DAILY Cetirizine HCl [Zyrtec] 10 mg PO HS Vit B6 Stress Formula 1 tab PO DAILY Vit B12 Dose Unknown 1 tab PO DAILY Discontinued Nystatin 100,000 Unit/gm Powd [Mycostatin Powder] 1 applic TOPICAL BID PRN PRN Reason: RED SKIN IN FOLDS Methotrexate Sodium [Methotrexate] 17.5 mg PO FR Adalimumab [Humira] 10 mg SQ Q14D Discharge Medication List Levothyroxine Sodium [Synthroid] 150 mcg PO DAILY 05/16/14 [History] Omeprazole [PriLOSEC] 40 mg PO DAILY 01/02/16 [History] FLUoxetine HCL [PROzac] 40 mg PO DAILY 01/25/16 [History] Losartan-Hctz 50-12.5 mg [Hyzaar 50-12.5] 1 tab PO DAILY 06/29/16 [History] Folic Acid 0.4 mg PO DAILY 02/01/17 [History] Gabapentin [Neurontin] 300 mg PO DAILY 06/28/17 [History] Cetirizine HCl [Zyrtec] 10 mg PO HS 08/08/17 [History] Multivitamins, Thera [Multivitamin (formulary)] 1 tab PO DAILY 08/08/17 [History ] Vit B12 Dose Unknown 1 tab PO DAILY 08/08/17 [History] Vit B6 Stress Formula 1 tab PO DAILY 08/08/17 [History] HYDROcodone/APAP 7.5-325MG [[place] 7.5-325] 1 tab PO Q4H PRN 3 Days #40 tab 08/23 [Rx] Loratadine [Claritin] 10 mg PO HS tab 08/23/17 [Rx] Docusate [Colace] 100 mg PO DAILY #20 capsule 08/24/17 [Rx] Tamsulosin [Flomax] 0.4 mg PO DAILY #5 cap 08/24/17 [Rx] Follow up Appointment(s)/Referral(s): Alexis Holland MD [Primary Care Provider] - 08/31/17 10:00 am [facility] [NON-STAFF] - 08/30/17 2:00 pm () Patient Instructions/Handouts: How to Take a Tub Bath (GEN), [place] Drain Care (DC), Panniculectomy (DC) Activity/Diet/Wound Care/Special Instructions: NO lifting over 4 pounds in 4 weeks. No shower. No bathtub soaks. Record ABRAHAM drain output daily and strip drains to prevent clogging. Sleep with head of bed up at 30 to 45 degrees. Walk with hips flexed to prevent tear of your incision. Dressings to be removed by your doctor in the office. EAT 75 G PROTEIN DAILY FOR OPTIMAL RECOVERY. Discharge Disposition: HOME SELF-CARE
--- NOTE | 2017-09-01 14:58 | P.OP ---
Date of Procedure: 08/21/17 Description of Procedure: Date of Procedure: 08/21/17 SURGEON: JAMEL PARISH MD PREOPERATIVE DIAGNOSES: 1. Panniculitis. 2. Central adiposity 3. Adiposis panniculus 4. Morbid obesity due to excess calories, now resolved. 5. Body mass index reduced from 49.7 down to 28.8 6. Hypothyroidism. 7. Depression. 8. Status post Joaquín-en-Y gastric bypass. 9. Rheumatoid arthritis POSTOPERATIVE DIAGNOSES: 1. Panniculitis. 2. Central adiposity 3. Adiposis panniculus 4. Morbid obesity due to excess calories, now resolved. 5. Body mass index reduced from 49.7 down to 28.8 6. Hypothyroidism. 7. Depression. 8. Status post Joaquín-en-Y gastric bypass. 9. Rheumatoid arthritis 10. Ventral hernia, reducible, unrelated to previous bariatric procedure OPERATION: 1. Panniculectomy, 4.52 pounds. 2. Primary repair of ventral hernia 11 x 18 cm without mesh Anesthesia: [employer] Worker #1: Jaron Kevin Estimated Blood Loss (ml): 400 Pathology: other (Panniculectomy) Condition: stable Disposition: floor SPECIMENS REMOVED: Pannus 4.52 pounds. COMPLICATIONS: None. DRAINS: Two #19 [place] drains below abdominal flap extending through the pubis. OPERATIVE FINDINGS: 1. Pannus weighing 4.52 pounds, excised. 2. Abdominal ventral hernia of 11 x 18 cm along the midline repaired primarily using fascial imbrication. INDICATIONS: Pina Encinas is a 46-year-old female who is status post Joaquín-en- Y gastric bypass on 01/18/2016. She is over 1.5 years out. She reports troubles with her pannus which has been long-standing for over 2 years. She has been using Nystatin powder for over one half years. She reports limitation of movement including exercise as a result of her pannus. She reports lower back pain and painful sores of her abdomen. Now she is evaluating for panniculectomy. For her height of 5 foot 4 inches, her ideal body weight is 144 pounds. Today she comes in weighing 167 pounds. Her highest weight was 289 pounds. She has lost 121 pounds. Body mass index was reduced from 49.7 down to 28.8. She has achieved 81 % excess weight loss. Benefits and risks of the procedure including bleeding, infection, cosmetic deformity, abdominal seromas, placement of drains, and risk of flap failure were described at length. Informed consent was obtained. DESCRIPTION: In the pre-anesthesia care unit the patient was marked with an indelible marker. She had also been given heparin subcutaneously. The patient was brought into the operating room and laid in supine position. After general induction, a Lu catheter was placed. The abdomen was then prepped and draped in standard sterile fashion using ChloraPrep. The skin was prepped as far laterally to the back, inferiorly to the upper thighs and superiorly to above the bilateral breasts. A timeout protocol was confirmed with the surgical team regarding patient's name , procedure to be performed, including preoperative medications. She had received Ancef 2 grams IV antibiotics. Once the time-out protocol was confirmed with the surgical team, the patient was re-marked with indelible marker whereby the midline of the xiphoid to the mons pubis was marked. The anterior/superior iliac spine along the bilateral hips was also marked. At 8 cm above the pubis commissure a transverse incision was made for the inferior portion of the flap. Using a #10 blade, the incision was taken from the midline laterally to above the anterior/superior iliac spine , initially on the left side of the patient and then on the right side of the patient. Electro-Bovie cautery was used to control for hemostasis. The dissection was taken down to the level of the fascia. Landmarks used were the xiphoid process as well as the bilateral costal margins for the superior margin. Care was taken to avoid any creation of dog ears during the dissection. Once hemostasis was checked, a large ventral hernia fascial defect of 11 x 18 cm was identified unrelated to her bariatric procedure. During this dissection , the umbilicus was truncated at its fascial insertion. The umbilicus fascial excision was oversewn using 0-Vicryl. Starting from the xiphoid process, fascial imbrication was performed using #2 Ethibond. Multiple facial imbrications at least 3 layers were performed. The ventral hernia defect was completely repaired and closed. Hemostasis was once again checked with electro-Bovie cautery and all defects were addressed. Attention was now brought to closure of the flap. Using stainless steel skin darnell, the midline was once again marked of the upper flap as well as the pubic commissure. The patient was placed in a flexed position of approximately 30 degrees at the hips. The pannus was extended inferiorly to the feet. The upper flap was created once the excess skin was excised. Again care was taken to avoid any dog ears along the lateral aspect of the incisions. Once excised, the pannus was weighed at 4.52 pounds. The upper and lower flaps were reapproximated at the midline and then laterally to the skin with skin darnell. Once reapproximated, the skin was closed in layers using 0 Vicryl for the superficial fascial system followed by running 3- 0 Monocryl for the deep dermis in a running subcuticular fashion. Prior to skin closure, two round #19 [place] drains were placed underneath the flap and brought out just inferior to the incision along the pubis. Drain stitch using 2-0 nylon was placed. Once the incision was closed, bulb suction was attached. Hemostasis was checked. At the end of the procedure, the needle, sponge and instrument count was verified correct. The skin was cleansed with hydrogen peroxide. Dermabond tape including adhesive was placed along the length of the incision. Optifoam long silver dressing was also placed over the incision. Optifoam dressing was placed over the ABRAHAM sites. The patient was then transferred to a hospital bed in a beach chair position. An abdominal binder was placed and marked. The patient was taken to the postanesthesia care unit in stable condition, awake and extubated.
== END 2017-08-24 12:23 | disposition home or self-care (01) | DRG 989 ==
LOC: OR 12:32 → 3SUR 16:30
PROVIDERS: ADMIT Surgery Plastic and Reconstructive Surgery; ATTEND Surgery Plastic and Reconstructive Surgery
PROC: 0HB7XZZ Excision of Abdomen Skin, External Approach (ICD-10-PCS; 2017-08-21)
PROC: 0WQF0ZZ Repair Abdominal Wall, Open Approach (ICD-10-PCS; principal; 2017-08-21 14:15)
DX: M79.3 Panniculitis, unspecified (principal); M79.7 Fibromyalgia; M47.9 Spondylosis, unspecified; M17.0 Bilateral primary osteoarthritis of knee; M16.0 Bilateral primary osteoarthritis of hip; M06.9 Rheumatoid arthritis, unspecified; K76.0 Fatty (change of) liver, not elsewhere classified; K43.9 Ventral hernia without obstruction or gangrene; J45.909 Unspecified asthma, uncomplicated; F41.9 Anxiety disorder, unspecified; F32.9 Major depressive disorder, single episode, unspecified; E78.5 Hyperlipidemia, unspecified; E55.9 Vitamin D deficiency, unspecified; R33.9 Retention of urine, unspecified; E65 Localized adiposity; Z98.84 Bariatric surgery status; K52.9 Noninfective gastroenteritis and colitis, unspecified; Z68.30 Body mass index [BMI] 30.0-30.9, adult; Z79.899 Other long term (current) drug therapy; Z79.890 Hormone replacement therapy; Z90.710 Acquired absence of both cervix and uterus; Z80.3 Family history of malignant neoplasm of breast; Z82.3 Family history of stroke; Z84.89 Family history of other specified conditions; E03.9 Hypothyroidism, unspecified
CPT/HCPCS: 82728; 83540; 83550; 85025; 85027; 94760

== ENCOUNTER → 2017-09-06 | Outpatient (CLI) | payer OTHER ==
--- NOTE | 2017-09-06 08:40 | P.PN ---
Subjective Progress Note Date: 09/06/17 DATE OF SERVICE: 09/06/2017 CHIEF COMPLAINT: Follow-up panniculectomy HISTORY OF PRESENT ILLNESS: Pina Encinas is a 46-year-old female who is status post Joaquín-en-Y gastric bypass on 01/18/2016. She is now 1.5 years out. She has lost 117 pounds. She is status post panniculectomy 06/2017. She is now 2 weeks out. She is doing very well. No fevers or chills. Her pain is controlled. For her height of 5 foot 4 inches, her ideal body weight is 144 pounds. Today she comes in weighing 172 pounds from 178 pounds, 2 months ago. Her highest weight was 289 pounds. She has lost 117 pounds. Body mass index was reduced from 49.7 down to 29.6. She has achieved 81% excess weight loss. She has lost 6 pounds in 2 months. PHYSICAL EXAM: VITAL SIGNS: 172 pounds. Height 5 ft 4 inches. Body mass index of 29.6. Vital Signs Temp 98.3 F 09/06/17 09:02 Pulse 75 09/06/17 09:02 Resp 16 09/06/17 09:02 BP 117/74 09/06/17 09:02 Pulse Ox ABDOMEN: ABRAHAM are serous. Has purulence milked from drainage site after removal. Nontender. No cellulitis of the flap sites. GENERAL: Well-developed female in no acute distress. NEURO: No focal or lateralizing signs. Cranial nerves II through XII grossly within normal limits. PSYCH: Appropriate affect. Alert and oriented to person, place, and time. HEENT: No scleral icterus. Extraocular movements grossly intact. No nasal drainage. NECK: Supple without lymphadenopathy. CHEST: Nonlabored respirations. Equal bilateral excursions. CARDIOVASCULAR: Regular rate. Regular rhythm. 2+ radial pulses. MUSCULOSKELETAL: No clubbing, cyanosis, or edema. SKIN: Good skin turgor. Well perfused. ASSESSMENT: 1. Morbid obesity due to excess calories, now resolved. 2. Body mass index reduced from 49.7 down to 29.6. 3. Status post Joaquín-en-Y gastric bypass. 4. Status post panniculectomy from panniculitis PLAN: 1. All drains removed. 2. Plan for follow-up in 2 to 3 weeks with tape measure of waist. 3. New snug binder is placed. 4. Will need close surveillance from ABRAHAM drainage sites.
[2017-09-06 09:11] VITALS: BP 117/74; PULSE 75; RESP 16; TEMP 98.3; BMI 29.5
== END | disposition home or self-care (01) ==
LOC: BARWHC3 08:16
PROVIDERS: ATTEND Surgery Plastic and Reconstructive Surgery
DX: Z09 Encounter for follow-up examination after completed treatment for conditions other than malignant neoplasm (principal); R63.4 Abnormal weight loss; Z98.84 Bariatric surgery status
CPT/HCPCS: 99211

== ENCOUNTER → 2017-09-25 | Outpatient (CLI) | payer OTHER ==
--- NOTE | 2017-09-25 10:42 | P.PN ---
Subjective Progress Note Date: 09/25/17 HPI: Patient reports slipping and falling 8 days ago. She had immediate felt of a tear along the abdomen. Subsequently, pain grew worse since presents today. No reports of fevers or chills. She reports moderate abdominal pain. Her history is significant for recent panniculectomy. PLAN: 1. On exam no palpable seromas. Incision is well granulated. 2. Recommend immediate CT of the abdomen and pelvis without contrast to evaluate for kidney stones including abdominal wall seromas.
[2017-09-25 11:29] VITALS: BP 115/81; PULSE 85; RESP 14; TEMP 98.3; BMI 29.5
--- NOTE | 2017-09-25 12:27 | CT ---
EXAMINATION TYPE: CT abdomen pelvis wo con DATE OF EXAM: 09/25/2017 COMPARISON: 01/28/2016 and 04/24/2014 HISTORY: 46-year-old female Right flank pain bilateral CT DLP: 533.60 mGycm. Automated exposure control for dose reduction was used. TECHNIQUE: Contiguous axial scanning of the abdomen and pelvis without IV contrast. Coronal and sagit mack reconstructions performed. FINDINGS: Heart normal size without pericardial effusion. Lung bases clear without pleural effusion. Post surgical changes of Joaquín-en-Y gastric bypass and cholecystectomy. Noncontrast appearance of the liver, adrenal glands, kidneys, spleen, and pancreas shows no gross abn ormal mobility. No nephrolithiasis or hydronephrosis. There is persistent karla mesentery with some borderline sized mesenteric lymph nodes measuring up to 6 mm. Interval postoperative changes of abdominoplasty with extensive reticulations and fat stranding throu ghout the subcutaneous fat. Possible small 2.3 cm fluid collection along the superficial fascia right paramedian mid to lower abdomen, axial image 62 and sagittal image 60. No dilated small bowel, free fluid, or free air. There is mild scattered stool burden. No pericolonic inflammatory change. Bladder is urine distended. Prominent but nonenlarged bilateral inguinal chain lymph nodes measuring up to 1.3 cm likely reactive/post inflammatory. Uterus surgically absent. No abnormal fluid collectio n in the pelvis or pelvic lymphadenopathy. Tiny pelvic phleboliths. Bones: Degenerative disc disease L5-S1 and mild degenerative changes at the hips. Stable sclerotic [place] posterior right acetabulum. IMPRESSION: 1. Interval abdominoplasty with extensive fat stranding throughout the subcutaneous fat of the mid t o lower anterior abdomen. This could be normal postoperative inflammation or cellulitis. Clinical cor relation recommended. 2. A small 2.3 cm nonspecific fluid collection at the lower abdominal midline along the superficial fascia, postoperative seroma, hematoma, and abscess are all in the differential. 3. Persistent karla mesentery with borderline size mesenteric lymph nodes. 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 4. Status post Joaquín-en-Y gastric bypass.
== END | disposition home or self-care (01) ==
LOC: BARWHC3 10:09
PROVIDERS: ATTEND Surgery Plastic and Reconstructive Surgery
DX: R10.9 Unspecified abdominal pain (principal); R59.0 Localized enlarged lymph nodes; Z98.84 Bariatric surgery status
CPT/HCPCS: 74176; G0463; 99212

== ENCOUNTER → 2017-09-27 | Outpatient (CLI) | payer OTHER ==
--- NOTE | 2017-09-27 13:07 | P.PN ---
Subjective Progress Note Date: 09/27/17 HPI: She presents with pain along the pubis. She had a fall and had new pain as a result. She presents for further evaluation. PLAN: 1. Pain consent reviewed. 2. Will follow up with phone call for improvement.
[2017-09-27 13:09] VITALS: BP 121/77; PULSE 86; RESP 16; TEMP 98.4; BMI 29.5
== END | disposition home or self-care (01) ==
LOC: BARWHC3 12:45
PROVIDERS: ATTEND Surgery Plastic and Reconstructive Surgery
DX: R10.2 Pelvic and perineal pain (principal)
CPT/HCPCS: 99211

== ENCOUNTER 2018-01-18 15:04 | Emergency (ER) | payer OTHER ==
[2018-01-18] MEDS: SODIUM CHLORIDE 0.9% 500 ML 500 ML IV SCH (15:58)
[2018-01-18 16:12] LABS: Appearance,Urine Clear (Clear); Bilirubin,Urine Negative (Negative); Blood,Urine Negative (Negative); Color,Urine Colorless; Glucose,Urine (UA) Negative (Negative); Ketones,Urine Negative (Negative); Leukocyte Esterase,Urine Negative (Negative); Nitrite,Urine Negative (Negative); Protein,Urine Negative (Negative); Specific Gravity,Urine 1.007 (1.001-1.035); Urobilinogen,Urine <2.0 mg/dL (<2.0)
[2018-01-18 16:17] LABS: Basophils # (A) 0.1 k/uL (0-0.2); Basophils % (A) 1 %; Eosinophils # (A) 0.3 k/uL (0-0.7); Eosinophils % (A) 3 %; HCT 36.9 % (34.0-46.0); Lymphocytes # (A) 2.1 k/uL (1.0-4.8); Lymphocytes % (A) 29 %; MCH 27.9 pg (25.0-35.0); MCHC 32.5 g/dL (31.0-37.0); MCV 85.7 fL (80.0-100.0); Mean Platelet Volume 6.6; Monocytes # (A) 0.4 k/uL (0-1.0); Monocytes % (A) 6 %; Neutrophils # (A) 4.3 k/uL (1.3-7.7); Neutrophils % (A) 59 %; Platelet Count 336 k/uL (150-450); RDW 15.3 % (11.5-15.5); WBC 7.2 k/uL (3.8-10.6)
[2018-01-18 16:22] LABS: ALT 26 U/L (9-52); AST 32 U/L (14-36); Alkaline Phosphatase 47 U/L (38-126); Amylase 48 U/L (30-110); Anion Gap 9 mmol/L; Blood Urea Nitrogen 25 mg/dL (7-17); Calcium 9.8 mg/dL (8.4-10.2); Carbon Dioxide 24 mmol/L (22-30); Chloride 105 mmol/L (98-107); Glucose 162 mg/dL (74-99); Lipase 108 U/L (23-300); Sodium 138 mmol/L (137-145); Total Bilirubin 0.6 mg/dL (0.2-1.3); Total Protein 7.2 g/dL (6.3-8.2)
--- NOTE | 2018-01-18 16:25 | ED ---
General Adult HPI - General Chief complaint: Skin/Abscess/Foreign Body Stated complaint: incision draining Source: patient, RN notes reviewed, old records reviewed Mode of arrival: ambulatory Limitations: no limitations - History of Present Illness Initial comments: 47-year-old female patient presents to ED with painful drainage in her mons pubis. Patient has a past history including hypertension, diabetes type 2, bariatric surgery. Approximate 4 months ago patient had at that abdominoplasty , moving approximately 5 lbs of skin. Patient was doing well until approximately 2 weeks ago when patient developed a "mass on her mons pubis" in the location of a previous drainage port site. Patient's incised this and reportedly encountered a large amount of purulent drainage. The site of this mass has contined to drain on a daily basis. Additionally pt complains of a "spider bite" on her medial left ankle which began approximately 1 month ago. Pt states that it is nearly healed and much improved than previously. Pt denies drainage/exudate. Pt states that it is " Over the last 2 weeks the pt has also experienced sx of fatigue, fever/chills, malaise and 2 days of diarrhea. - Related Data Home Medications Medication Instructions Recorded Confirmed Levothyroxine Sodium [Synthroid] 150 mcg PO DAILY 05/16/14 01/18/18 Omeprazole [PriLOSEC] 40 mg PO DAILY 01/02/16 01/18/18 FLUoxetine HCL [PROzac] 40 mg PO DAILY 01/25/16 01/18/18 Losartan-Hctz 50-12.5 mg [Hyzaar 1 tab PO DAILY 06/29/16 01/18/18 50-12.5] Folic Acid 0.4 mg PO DAILY 02/01/17 01/18/18 Gabapentin [Neurontin] 300 mg PO TID 06/28/17 01/18/18 Cetirizine HCl [Zyrtec] 10 mg PO HS 08/08/17 01/18/18 Multivitamins, Thera [Multivitamin 1 tab PO DAILY 08/08/17 01/18/18 (formulary)] ALPRAZolam [Xanax] 0.25 mg PO HS 01/18/18 01/18/18 Vitamin B Complex 1 cap PO DAILY 01/18/18 01/18/18 Previous Rx's Medication Instructions Recorded Cephalexin [Keflex] 500 mg PO Q12HR 10 Days #20 cap 01/18/18 Sulfamethox-Tmp 800-160Mg [Bactrim 2 tab PO Q12HR #40 tab 01/18/18 DS 800-160 mg] Allergies Allergy/AdvReac Type Severity Reaction Status Date / Time No Known Allergies Allergy Verified 01/18/18 16:13 Review of Systems ROS Statement: Those systems with pertinent positive or pertinent negative responses have been documented in the HPI. ROS Other: All systems not noted in ROS Statement are negative. Past Medical History Past Medical History: Asthma, Chest Pain / Angina, Diabetes Mellitus, Fibromyalgia, GERD/Reflux, Hyperlipidemia, Hypertension, Osteoarthritis (OA), Sleep Apnea/CPAP/BIPAP, Thyroid Disorder Additional Past Medical History / Comment(s): USES C-PAP MACHINE, DDD WITH BACK PAIN, FATTY LIVER. ,TORN LT ROTATOR CUFF 2016 History of Any Multi-Drug Resistant Organisms: None Reported Past Surgical History: Appendectomy, Bariatric Surgery, Bladder Surgery, Cholecystectomy, Heart Catheterization, Hysterectomy, Tubal Ligation Additional Past Surgical History / Comment(s): partial thyroidectomy, bladder suspension w/mesh (as of 06/28/17 patient has since undergone sx 4x to have various portions of mesh removed), sinus repair surgery, bilateral knee surgery (meniscus, femur fracture on rt) 01-18-16 MANJINDER EN Y GASTRIC BYPASS, EGD, COLONOSCOPY, panniculectomy 08/21/17 Past Anesthesia/Blood Transfusion Reactions: Family History of Problems w/ Anesthesia, Motion Sickness Additional Past Anesthesia/Blood Transfusion Reaction / Comment(s): Pt has difficulty waking up. Very difficult intubation. Pts grandmother has difficulty waking and also difficult intubation. Past Psychological History: Anxiety, Depression Smoking Status: Never smoker Past Alcohol Use History: Rare Past Drug Use History: None Reported - Past Family History Mother Family Medical History: Cancer Additional Family Medical History / Comment(s): Breast CA Father Family Medical History: Cancer, CVA/TIA Additional Family Medical History / Comment(s): - stroke General Exam - General Exam Comments Initial Comments: Constitutional: NAD, AOX3, Pt has pleasant affect. HEENT: NC/AT, trachea midline, neck supple, no lymphadenopathy. Posterior pharynx non erythematous, without exudates. External ears appear normal, without discharge. Mucous membranes moist. Eyes PERRLA, EOM intact. There is no scleral icterus. No pallor noted. Cardiopulmonary: RRR, no murmurs, rubs or gallops, no JVD noted. Lungs CTAB in anterior and posterior garcia. No peripheral edema. Abdominal exam: Abdomen soft and non-distended. Abdomen very mildly tender on left flank and epigastric region. Wray sign negative, no tenderness at mcburneys point. No ecchymosis, no cullens/arguelles turners sign. Bowel sounds active in LLQ. No hepatosplenomegaly. Neuro: CN II-XII grossly intact. Geoscientist: Drainage noted on midline mons pubis, site of former drain port. Area is non tender and non flucturant. Non erythematous. Clear serous drainage expressed. No streaking. Chaperoned by medical library assistant brian ward. MSK: Small 2x2mm ulceration on medial L ankle. very mild local erythema surrounding, non tender, no exudate. Appears to be nearly healed. Limitations: no limitations Course Vital Signs 01/18/18 15:06 Temperature 99.2 F Pulse Rate 105 H Respiratory 18 Rate Blood Pressure 145/86 O2 Sat by Pulse 99 Oximetry Medical Decision Making - Medical Decision Making 47-year-old female patient past medical history including bariatric surgery, and abdominoplasty in September. Patient reports drainage from a previous drainage port sites that has been ongoing for approximately 2 weeks. Patient has additional complaints of fever chills, malaise over the same timeframe. Pt had mild epigastric and flank abdominal pain on physical exam, otherwise benign. Extensive investigations into intra-abdominal pathology were conducted. These included CBC, CMP, UA, lipase/amylase, lactic acid - all of which were wnl. An EKG was conducted that was NSR with no concerns for ischemia. Additionally an abdominal/pelvic CT was conducted which displayed inflammation that was relatively unchanged from a previous CT approx 4 months ago, no other overt signs of acute abdominal pathology. A discussion between Dr. High and the pts bariatric surgeon Dr. Halina Ayoub took place in which the shared decision was to tx the pt outpt with antibiotics and have her follow up with PCP and Dr. Ayoub. The pt had an additional complaint of an ulceration on the L medial heel. This appears to be nearly healed, and pt states that it is much improved from it was previously. The abx the pt is prescribed would cover this for superficial skin infection. Pt to follow up with PCP and Dr. Ayoub in 1-2 days. Pt to return to ED if symptoms worsen or new complaints develop. This includes abdominal pain, fever/chills, n/v/d, or any other new symptoms. HR 64 on discharge at 18:24. - EKG Data EKG Comments: NSR. Ventricular rate 74. AR interval 138. QRS 80. QT 386, QTc 428. Disposition Clinical Impression: Superficial skin infection Disposition: HOME SELF-CARE Condition: Good Instructions: Cellulitis (ED) Prescriptions: Cephalexin [Keflex] 500 mg PO Q12HR 10 Days #20 cap Sulfamethox-Tmp 800-160Mg [Bactrim DS 800-160 mg] 2 tab PO Q12HR #40 tab Is patient prescribed a controlled substance at d/c from ED?: No Referrals: Alexis Holland MD [Primary Care Provider] - 1-2 days Halina Joseph MD [STAFF PHYSICIAN] - 1-2 days Time of Disposition: 18:19
--- NOTE | 2018-01-18 17:11 | CT ---
EXAMINATION TYPE: CT abdomen pelvis w con DATE OF EXAM: 01/18/2018 COMPARISON: 09/25/2017 HISTORY: Umbilical pain and swelling with open wound for 2 weeks. Post OP bariatric surgery in August [address] DLP: 850.8 mGycm Automated exposure control for dose reduction was used. TECHNIQUE: Helical acquisition of images was performed from the lung bases through the pelvis. CONTRAST: Performed without Oral Contrast and with IV Contrast, patient injected with 100 mL of Isovue 300. FINDINGS: Lung bases are clear of consolidation. There are clips from bariatric surgery. There is no pleural ef fusion. Heart size is normal. There is no pericardial effusion. Liver shows no focal defect. There is no evidence of pancreatic mass. Spleen appears normal. There is no adrenal mass. Kidneys show satisfactory contrast opacification. There is no hydronephrosi s. There is no retroperitoneal adenopathy. There is fat stranding in the small bowel mesentery. There is some thickening of the anterior abdominal wall with subcutaneous edema. There is no discrete flui d collection. Bladder distends smoothly. I see no pelvic mass. There is apparent hysterectomy. Lumbar spine is intact. Bony pelvis appears intact. There is no sign of free air. There is narrowing at L5- S1 disc space with spur formation. There is no ascites. There is no evidence of inguinal hernia. There are no dilated bowel loops. There is no evidence of a bowel obstruction. Appendix is not defini tely seen. There is no sign of appendicitis. IMPRESSION: THERE IS SOFT TISSUE SWELLING AND SUBCUTANEOUS MASS ALONG THE ANTERIOR ABDOMINAL WALL THAT EXTENDS TO THE SKIN SURFACE CONSISTENT WITH ULCERATION AND PHLEGMON. I DO NOT SEE DEFINITE HERNIATED BOWEL. THI S IS CONSISTENT WITH INFLAMMATORY REACTION AND PHLEGMON. NO BOWEL OBSTRUCTION. THERE IS SMALL BOWEL M ESENTERIC MILD EDEMA UNCHANGED. THERE IS SLIGHT DECREASE IN THE INFLAMMATORY CHANGES ON THE ANTERIOR ABDOMINAL WALL COMPARED TO OLD EXAM. NO DRAINABLE FLUID COLLECTION.
[2018-01-18 18:10] VITALS: BP 136/81; PULSE 71; RESP 13; TEMP 99.1
== END 2018-01-18 18:40 | disposition home or self-care (01) ==
LOC: EC 15:04
DX: L08.9 Local infection of the skin and subcutaneous tissue, unspecified (principal); R10.13 Epigastric pain; M79.7 Fibromyalgia; K21.9 Gastro-esophageal reflux disease without esophagitis; I10 Essential (primary) hypertension; E07.9 Disorder of thyroid, unspecified; F41.9 Anxiety disorder, unspecified; F32.9 Major depressive disorder, single episode, unspecified; G47.30 Sleep apnea, unspecified; Z99.89 Dependence on other enabling machines and devices; Z90.49 Acquired absence of other specified parts of digestive tract; Z98.84 Bariatric surgery status; Z95.818 Presence of other cardiac implants and grafts; Z90.710 Acquired absence of both cervix and uterus; Z98.51 Tubal ligation status; Z79.899 Other long term (current) drug therapy
CPT/HCPCS: 99284; 36415; 93005; 80053; 82150; 83605; 83690; 85025; 81003; 87040; 87070; 87086; 87205; 87077; 87186; 74177; Q9967

== ENCOUNTER 2018-08-25 19:56 | Inpatient (IN) | payer OTHER ==
[2018-08-25] MEDS ORDERED: NALOXONE 0.4 MG/ML 1 ML VIAL IV PRN (20:58)
--- NOTE | 2018-08-25 20:58 | ED ---
GI Bleed HPI - General Chief complaint: GI Bleed Stated complaint: Abdominal Pain Time Seen by Provider: 08/25/18 19:56 Source: patient, EMS, RN notes reviewed, old records reviewed Mode of arrival: EMS - History of Present Illness Initial comments: This a 47-year-old female who was transferred from [facility] to this facility for evaluation of GI bleeding. Patient states she has had a burgundy in dark red colored stools this started last evening around 10 PM. She also admits to black. She does admit she took some Pepto-Bismol. She was found have a hemoglobin 9.1 at the transferring facility. She also states that she had 3 episodes where she passed out last evening doing feeling lightheaded. She had no chest pain or palpitations. No vomiting. She does states she had a bariatric procedure done about 3 years ago. She also states she feels much improved after IV fluids that were given to her. No complaints of modifying factors. MD complaint: melena, blood streaked stool, gross hematochezia, other - Related Data Home Medications Medication Instructions Recorded Confirmed Levothyroxine Sodium [Synthroid] 150 mcg PO DAILY 05/16/14 08/25/18 Losartan-Hctz 50-12.5 mg [Hyzaar 1 tab PO DAILY 06/29/16 08/25/18 50-12.5] Cetirizine HCl [Zyrtec] 10 mg PO DAILY 08/08/17 08/25/18 Albuterol Inhaler [Ventolin Hfa 1 - 2 puff INHALATION RT-Q6H PRN 08/25/18 08/25/18 Inhaler] Fluticasone/Salmeterol [Advair 1 inhalation PO RT-Q12H 08/25/18 08/25/18 100-50 Diskus] Omeprazole 20 mg PO DAILY 08/25/18 08/25/18 Sertraline HCl [Zoloft] 100 mg PO DAILY 08/25/18 08/25/18 Allergies Allergy/AdvReac Type Severity Reaction Status Date / Time Penicillins Allergy Unknown Verified 08/25/18 20:43 Review of Systems ROS Statement: Those systems with pertinent positive or pertinent negative responses have been documented in the HPI. ROS Other: All systems not noted in ROS Statement are negative. Past Medical History Past Medical History: Asthma, Chest Pain / Angina, Diabetes Mellitus, Fibromyalgia, GERD/Reflux, Hyperlipidemia, Hypertension, Osteoarthritis (OA), Sleep Apnea/CPAP/BIPAP, Thyroid Disorder Additional Past Medical History / Comment(s): USES C-PAP MACHINE, DDD WITH BACK PAIN, FATTY LIVER. ,TORN LT ROTATOR CUFF 2016 History of Any Multi-Drug Resistant Organisms: None Reported Past Surgical History: Appendectomy, Bariatric Surgery, Bladder Surgery, Cholecystectomy, Heart Catheterization, Hysterectomy, Tubal Ligation Additional Past Surgical History / Comment(s): partial thyroidectomy, bladder suspension w/mesh (as of 06/28/17 patient has since undergone sx 4x to have various portions of mesh removed), sinus repair surgery, bilateral knee surgery (meniscus, femur fracture on rt) 01-18-16 MANJINDER EN Y GASTRIC BYPASS, EGD, COLONOSCOPY, panniculectomy 08/21/17 Past Anesthesia/Blood Transfusion Reactions: Family History of Problems w/ Anesthesia, Motion Sickness Additional Past Anesthesia/Blood Transfusion Reaction / Comment(s): Pt has difficulty waking up. Very difficult intubation. Pts grandmother has difficulty waking and also difficult intubation. Past Psychological History: Anxiety, Depression Smoking Status: Never smoker Past Alcohol Use History: Rare Past Drug Use History: None Reported - Past Family History Mother Family Medical History: Cancer Additional Family Medical History / Comment(s): Breast CA Father Family Medical History: Cancer, CVA/TIA Additional Family Medical History / Comment(s): - stroke General Exam - General Exam Comments Initial Comments: This is a well-developed well-nourished awake alert oriented 3 female General appearance: alert, in no apparent distress Head exam: Present: atraumatic, normocephalic, normal inspection Eye exam: Present: normal appearance, PERRL, EOMI. Absent: scleral icterus, conjunctival injection, periorbital swelling ENT exam: Present: normal exam, mucous membranes moist Neck exam: Present: normal inspection. Absent: tenderness, meningismus, lymphadenopathy Respiratory exam: Present: normal lung sounds bilaterally. Absent: respiratory distress, wheezes, rales, rhonchi, stridor Cardiovascular Exam: Present: regular rate, normal rhythm, normal heart sounds. Absent: systolic murmur, diastolic murmur, rubs, gallop, clicks GI/Abdominal exam: Present: soft, normal bowel sounds. Absent: distended, tenderness, guarding, rebound, rigid Rectal exam: Present: deferred Extremities exam: Present: normal inspection, full ROM, normal capillary refill. Absent: tenderness, pedal edema, joint swelling, calf tenderness Back exam: Present: normal inspection Neurological exam: Present: alert, oriented X3, CN II-XII intact Psychiatric exam: Present: normal affect, normal mood Skin exam: Present: warm, dry, intact, normal color. Absent: rash Course Vital Signs 08/25/18 20:01 Temperature 99.5 F Pulse Rate 97 Respiratory 16 Rate Blood Pressure 121/77 O2 Sat by Pulse 99 Oximetry Medical Decision Making - Medical Decision Making Did review the materials submitted the transferring facility. I did discuss the case with Dr. Chapa. Patient will be admitted with GI consultation. Patient also has seen Dr. Ayoub the past but has requested not to be consult at on by her. Reason is unknown. Dr. Lerner will be consulted in the a.m. Disposition Clinical Impression: Hematochezia, Lower GI bleed, Anemia Disposition: ADMITTED IP TO THIS HOSP Condition: Fair Referrals: Alexis Holland MD [Primary Care Provider] - 1-2 days
[2018-08-25] MEDS ORDERED: ALBUTEROL NEBULIZED 2.5 MG/3 ML INHALATION PRN (21:05)
[2018-08-25] MEDS: PANTOPRAZOLE 40 MG/10 ML VIAL IV SCH (21:21)
[2018-08-25] MEDS: SODIUM CHLORIDE 0.9% 1,000 ML IV SCH (21:21)
[2018-08-25 21:31] LABS: Basophils % (A) 1 %; Eosinophils # (A) 0.1 k/uL (0-0.7); Eosinophils % (A) 1 %; HGB 8.3 gm/dL (11.4-16.0); Lymphocytes # (A) 2.3 k/uL (1.0-4.8); Lymphocytes % (A) 34 %; MCHC 32.1 g/dL (31.0-37.0); MCV 81.1 fL (80.0-100.0); Mean Platelet Volume 6.9; Monocytes # (A) 0.4 k/uL (0-1.0); Monocytes % (A) 6 %; Neutrophils # (A) 3.9 k/uL (1.3-7.7); Neutrophils % (A) 57 %; Platelet Count 321 k/uL (150-450); RDW 14.5 % (11.5-15.5); WBC 6.9 k/uL (3.8-10.6)
[2018-08-25] MEDS ORDERED: ALPRAZolam 0.25 MG TAB PO PRN (22:51)
[2018-08-25] MEDS ORDERED: TEMAZEPAM 15 MG CAP PO PRN (22:51)
[2018-08-25] MEDS ORDERED: ACETAMINOPHEN TAB 500 MG TAB PO PRN (22:51)
[2018-08-26 02:47] LABS: Basophils # (A) 0.1 k/uL (0-0.2); Basophils % (A) 1 %; Eosinophils # (A) 0.1 k/uL (0-0.7); Eosinophils % (A) 2 %; HCT 22.9 % (34.0-46.0); HGB 7.3 gm/dL (11.4-16.0); Hypochromasia Slight; Lymphocytes % (A) 37 %; MCH 26.2 pg (25.0-35.0); MCHC 32.1 g/dL (31.0-37.0); MCV 81.6 fL (80.0-100.0); Mean Platelet Volume 7.1; Monocytes # (A) 0.3 k/uL (0-1.0); Monocytes % (A) 6 %; Neutrophils # (A) 2.8 k/uL (1.3-7.7); Neutrophils % (A) 51 %; Platelet Count 238 k/uL (150-450); RBC 2.81 m/uL (3.80-5.40); RDW 14.6 % (11.5-15.5); WBC 5.4 k/uL (3.8-10.6)
[2018-08-26 02:57] LABS: African American GFR (CKD) >90 (>60 ml/min/1.73 sqM); Anion Gap 3 mmol/L; Blood Urea Nitrogen 19 mg/dL (7-17); Calcium 8.7 mg/dL (8.4-10.2); Carbon Dioxide 28 mmol/L (22-30); Chloride 109 mmol/L (98-107); Glucose 90 mg/dL (74-99); Potassium 4.1 mmol/L (3.5-5.1); Sodium 140 mmol/L (137-145)
[2018-08-26 03:04] LABS: Appearance,Urine Clear (Clear); Bilirubin,Urine Negative (Negative); Blood,Urine Negative (Negative); Color,Urine Yellow; Glucose,Urine (UA) Negative (Negative); Ketones,Urine 1+ (Negative); Leukocyte Esterase,Urine Negative (Negative); Nitrite,Urine Negative (Negative); PH, Urine 5.5 (5.0-8.0); Protein,Urine Trace (Negative); Specific Gravity,Urine 1.043 (1.001-1.035); Urobilinogen,Urine <2.0 mg/dL (<2.0)
[2018-08-26] MEDS: LEVOTHYROXINE 75 MCG TAB PO SCH (06:26)
[2018-08-26] MEDS: SODIUM CHLORIDE 0.9% 1,000 ML IV SCH ×3 (06:28→20:44)
[2018-08-26 08:31] LABS: Basophils % (A) 1 %; Eosinophils # (A) 0.1 k/uL (0-0.7); Eosinophils % (A) 3 %; HCT 23.1 % (34.0-46.0); HGB 7.4 gm/dL (11.4-16.0); Hypochromasia Slight; Lymphocytes # (A) 1.4 k/uL (1.0-4.8); Lymphocytes % (A) 31 %; MCH 26.6 pg (25.0-35.0); MCHC 32.1 g/dL (31.0-37.0); MCV 82.8 fL (80.0-100.0); Mean Platelet Volume 7.1; Monocytes # (A) 0.3 k/uL (0-1.0); Monocytes % (A) 6 %; Neutrophils # (A) 2.5 k/uL (1.3-7.7); Neutrophils % (A) 57 %; Platelet Count 227 k/uL (150-450); RBC 2.78 m/uL (3.80-5.40); RDW 14.6 % (11.5-15.5); WBC 4.4 k/uL (3.8-10.6)
[2018-08-26] MEDS: PANTOPRAZOLE 40 MG/10 ML VIAL IV SCH ×2 (08:39→20:44)
[2018-08-26] MEDS: SERTRALINE 100 MG TAB PO SCH (08:39)
[2018-08-26] MEDS: LOSARTAN-HCTZ 50-12.5 MG 1 EACH TAB PO SCH (08:39)
--- NOTE | 2018-08-26 11:01 | P.GSCN ---
History of Present Illness Consult date: 08/26/18 Reason for Consult: GI bleed History of present illness: This a 47-year-old female who presents to the hospital complaints of GI bleed. Patient describes dark bloody stools with some evidence of black coffee grounds. Patient has a previous history of gastric bypass. She's never had a previous GI bleed. Past Medical History Past Medical History: Asthma, Chest Pain / Angina, Fibromyalgia, GERD/Reflux, Hyperlipidemia, Hypertension, Osteoarthritis (OA), Thyroid Disorder Additional Past Medical History / Comment(s): DDD WITH BACK PAIN, FATTY LIVER. ,TORN LT ROTATOR CUFF 2016 History of Any Multi-Drug Resistant Organisms: None Reported Past Surgical History: Appendectomy, Bariatric Surgery, Bladder Surgery, Cholecystectomy, Heart Catheterization, Hysterectomy, Tubal Ligation Additional Past Surgical History / Comment(s): partial thyroidectomy, bladder suspension w/mesh (as of 06/28/17 patient has since undergone sx 4x to have various portions of mesh removed), sinus repair surgery, bilateral knee surgery (meniscus, femur fracture on rt) 01-18-16 MANJINDER EN Y GASTRIC BYPASS, EGD, COLONOSCOPY, panniculectomy 08/21/17 Past Anesthesia/Blood Transfusion Reactions: Family History of Problems w/ Anesthesia, Motion Sickness Additional Past Anesthesia/Blood Transfusion Reaction / Comm: Pt has difficulty waking up. Very difficult intubation. Pts grandmother has difficulty waking and also difficult intubation. Past Psychological History: Anxiety, Depression Smoking Status: Never smoker Past Alcohol Use History: Rare Past Drug Use History: None Reported - Past Family History Mother Family Medical History: Cancer Additional Family Medical History / Comment(s): Breast CA Father Family Medical History: Cancer, CVA/TIA Additional Family Medical History / Comment(s): - stroke Medications and Allergies Home Medications Medication Instructions Recorded Confirmed Type Levothyroxine Sodium [Synthroid] 150 mcg PO DAILY 05/16/14 08/25/18 History Losartan-Hctz 50-12.5 mg [Hyzaar 1 tab PO DAILY 06/29/16 08/25/18 History 50-12.5] Cetirizine HCl [Zyrtec] 10 mg PO DAILY 08/08/17 08/25/18 History Albuterol Inhaler [Ventolin Hfa 1 - 2 puff INHALATION RT-Q6H PRN 08/25/18 08/25/18 History Inhaler] Fluticasone/Salmeterol [Advair 1 inhalation PO RT-Q12H 08/25/18 08/25/18 History 100-50 Diskus] Omeprazole 20 mg PO DAILY 08/25/18 08/25/18 History Sertraline HCl [Zoloft] 100 mg PO DAILY 08/25/18 08/25/18 History Allergies Allergy/AdvReac Type Severity Reaction Status Date / Time Penicillins Allergy Unknown Verified 08/25/18 20:43 Surgical - Exam Vital Signs Temp Pulse Resp BP Pulse Ox 99.5 F 97 16 121/77 99 08/25/18 20:01 08/25/18 20:01 08/25/18 20:01 08/25/18 20:01 08/25/18 20:01 - General well developed, well nourished, no distress - Eyes PERRL - ENT normal pinna - Neck no masses - Respiratory normal expansion - Cardiovascular Rhythm: regular - Abdomen Abdomen: soft, non tender Results - Labs 08/26/18 07:53 08/26/18 02:15 Abnormal Lab Results - Last 24 Hours (Table) 08/25/18 08/26/18 08/26/18 Range/Units 20:20 02:15 02:15 RBC 3.20 L 2.81 L (3.80-5.40) m/uL Hgb 8.3 L 7.3 L (11.4-16.0) gm/dL Hct 26.0 L 22.9 L (34.0-46.0) % Chloride 109 H (98-107) mmol/L BUN 19 H (7-17) mg/dL Ur Specific [place] (1.001-1.035) Urine Protein (Negative) Urine Ketones (Negative) 08/26/18 08/26/18 Range/Units 02:47 07:53 RBC 2.78 L (3.80-5.40) m/uL Hgb 7.4 L (11.4-16.0) gm/dL Hct 23.1 L (34.0-46.0) % Chloride (98-107) mmol/L BUN (7-17) mg/dL Ur Specific [place] 1.043 H (1.001-1.035) Urine Protein Trace H (Negative) Urine Ketones 1+ H (Negative) Diabetes panel 08/26/18 Range/Units 02:15 Sodium 140 (137-145) mmol/L Potassium 4.1 (3.5-5.1) mmol/L Chloride 109 H (98-107) mmol/L Carbon Dioxide 28 (22-30) mmol/L BUN 19 H (7-17) mg/dL Creatinine 0.65 (0.52-1.04) mg/dL Glucose 90 (74-99) mg/dL Calcium 8.7 (8.4-10.2) mg/dL Calcium panel 08/26/18 Range/Units 02:15 Calcium 8.7 (8.4-10.2) mg/dL Pituitary panel 08/26/18 Range/Units 02:15 Sodium 140 (137-145) mmol/L Potassium 4.1 (3.5-5.1) mmol/L Chloride 109 H (98-107) mmol/L Carbon Dioxide 28 (22-30) mmol/L BUN 19 H (7-17) mg/dL Creatinine 0.65 (0.52-1.04) mg/dL Glucose 90 (74-99) mg/dL Calcium 8.7 (8.4-10.2) mg/dL Adrenal panel 08/26/18 Range/Units 02:15 Sodium 140 (137-145) mmol/L Potassium 4.1 (3.5-5.1) mmol/L Chloride 109 H (98-107) mmol/L Carbon Dioxide 28 (22-30) mmol/L BUN 19 H (7-17) mg/dL Creatinine 0.65 (0.52-1.04) mg/dL Glucose 90 (74-99) mg/dL Calcium 8.7 (8.4-10.2) mg/dL Assessment and Plan Assessment: GI bleed. Patient will be evaluated to rule out marginal ulcer from the gastrojejunostomy. We will schedule for EGD in the a.m.
[2018-08-26] MEDS: HYDROcodone/APAP 5-325MG 1 EACH TAB PO PRN ×2 (11:30→22:23)
[2018-08-26 14:24] LABS: Basophils % (A) 1 %; Eosinophils # (A) 0.1 k/uL (0-0.7); Eosinophils % (A) 3 %; HCT 22.5 % (34.0-46.0); Lymphocytes # (A) 1.9 k/uL (1.0-4.8); Lymphocytes % (A) 41 %; MCH 25.8 pg (25.0-35.0); MCHC 31.3 g/dL (31.0-37.0); MCV 82.5 fL (80.0-100.0); Mean Platelet Volume 7.1; Monocytes # (A) 0.3 k/uL (0-1.0); Monocytes % (A) 6 %; Neutrophils # (A) 2.2 k/uL (1.3-7.7); Neutrophils % (A) 48 %; Platelet Count 232 k/uL (150-450); RBC 2.72 m/uL (3.80-5.40); RDW 14.4 % (11.5-15.5); WBC 4.6 k/uL (3.8-10.6)
--- NOTE | 2018-08-26 18:28 | P.CONS ---
History of Present Illness - Reason for Consult Consult date: 08/26/18 GI bleed Requesting physician: Bev Chapa - Chief Complaint GI bleed - History of Present Illness 47-year-old female with a history of hypothyroidism, hypertension, GERD and previous Joaquín-en-Y gastric bypass 3 years ago presented with complaints of blood per rectum. The patient reports 2 days of burgundy colored bowel movements. She reports dark colored bowel movements with bright red blood around the edges toilet. She denies any prior history of GI bleed. She denies any nausea or vomiting. She does report that prior to the bowel movement she was having some epigastric discomfort. She does report that she has chronic diarrhea at baseline. She denies any NSAID use and reports that she takes Tylenol for pain. She states that her last EGD and colonoscopy was prior to her Joaquín-en-Y gastric bypass surgery in 2016. On presentation to the hospital she was found to have a hemoglobin of 9.1 which subsequently trended to 8.3 and is currently 7.4. WBC 4.4 and platelet count 227,000. Currently the patient is seen lying in bed denying any further GI bleeding today. She is tolerating a liquid diet. Review of Systems REVIEW OF SYSTEMS: CONSTITUTIONAL: Denies any fevers, chills, weight change or fatigue. CARDIOVASCULAR: Denies any chest pain, palpitations high or low blood pressures RESPIRATORY: Denies any shortness of breath, hemoptysis or cough. GENITOURINARY: No dysuria or hematuria. MUSCULOSKELETAL: No weakness reported. SKIN: Denies any new rashes or lesions, jaundice or pallor. PSYCHIATRIC: Denies any depression or anxiety. NEUROLOGY: Denies headache, denies any new focal deficits. EARS/NOSE/THROAT: No recent hearing change, congestion, nasal discharge or sore throat. EYES: No pain in eyes, discharge or change in vision. GASTROINTESTINAL: As per HPI. Past Medical History Past Medical History: Asthma, Chest Pain / Angina, Fibromyalgia, GERD/Reflux, Hyperlipidemia, Hypertension, Osteoarthritis (OA), Thyroid Disorder Additional Past Medical History / Comment(s): DDD WITH BACK PAIN, FATTY LIVER. ,TORN LT ROTATOR CUFF 2016 History of Any Multi-Drug Resistant Organisms: None Reported Past Surgical History: Appendectomy, Bariatric Surgery, Bladder Surgery, Cholecystectomy, Heart Catheterization, Hysterectomy, Tubal Ligation Additional Past Surgical History / Comment(s): partial thyroidectomy, bladder suspension w/mesh (as of 06/28/17 patient has since undergone sx 4x to have various portions of mesh removed), sinus repair surgery, bilateral knee surgery (meniscus, femur fracture on rt) 01-18-16 JOAQUÍN EN Y GASTRIC BYPASS, EGD, COLONOSCOPY, panniculectomy 08/21/17 Past Anesthesia/Blood Transfusion Reactions: Family History of Problems w/ Anesthesia, Motion Sickness Additional Past Anesthesia/Blood Transfusion Reaction / Comm: Pt has difficulty waking up. Very difficult intubation. Pts grandmother has difficulty waking and also difficult intubation. Past Psychological History: Anxiety, Depression Smoking Status: Never smoker Past Alcohol Use History: Rare Past Drug Use History: None Reported - Past Family History Mother Family Medical History: Cancer Additional Family Medical History / Comment(s): Breast CA Father Family Medical History: Cancer, CVA/TIA Additional Family Medical History / Comment(s): - stroke Medications and Allergies Home Medications Medication Instructions Recorded Confirmed Type Levothyroxine Sodium [Synthroid] 150 mcg PO DAILY 05/16/14 08/25/18 History Losartan-Hctz 50-12.5 mg [Hyzaar 1 tab PO DAILY 06/29/16 08/25/18 History 50-12.5] Cetirizine HCl [Zyrtec] 10 mg PO DAILY 08/08/17 08/25/18 History Albuterol Inhaler [Ventolin Hfa 1 - 2 puff INHALATION RT-Q6H PRN 08/25/18 08/25/18 History Inhaler] Fluticasone/Salmeterol [Advair 1 inhalation PO RT-Q12H 08/25/18 08/25/18 History 100-50 Diskus] Omeprazole 20 mg PO DAILY 08/25/18 08/25/18 History Sertraline HCl [Zoloft] 100 mg PO DAILY 08/25/18 08/25/18 History Allergies Allergy/AdvReac Type Severity Reaction Status Date / Time Penicillins Allergy Unknown Verified 08/25/18 20:43 Physical Exam Vitals: Vital Signs Temp Pulse Pulse Resp BP BP Pulse Ox 08/26/18 12:00 73 98/56 98 08/26/18 08:00 97.3 F L 84 112/56 99 08/26/18 04:00 98.2 F 77 18 120/58 98 08/25/18 23:57 98.4 F 70 18 114/56 100 08/25/18 23:05 98.7 F 82 16 102/41 99 08/25/18 20:51 86 16 110/77 99 08/25/18 20:01 99.5 F 97 16 121/77 99 Intake and Output 08/26/18 08/26/18 08/26/18 06:59 14:59 22:59 Intake Total 700 1480 Balance 700 1480 Intake: Intake, IV Titration 700 1000 Amount Sodium Chloride 0.9% 1, 700 1000 000 ml @ 125 mls/hr IV . Q8H [facility] Rx#:[id number] Oral 480 Other: Weight 81.601 kg On physical examination, patient appears comfortable in no apparent distress. HEAD: Normocephalic, atraumatic. EYES: No scleral icterus. No conjunctival injection. MOUTH: No lesions, tongue midline. NECK: Trachea midline, no gross abnormalities. CHEST: Clear to auscultation with no wheezing or rhonchi appreciated. HEART: Regular rate and rhythm. ABDOMEN: Soft. Bowel sounds are positive. No organomegaly. No guarding or rigidity. EXTREMITIES: No pedal edema. SKIN: No rashes, no jaundice. NEUROLOGIC: Alert and oriented x3. No focal deficits. Results CBC & Chem 7: 08/26/18 14:13 08/26/18 02:15 Labs: Abnormal Lab Results - Last 24 Hours (Table) 08/25/18 08/25/18 08/26/18 Range/Units 20:20 20:20 02:15 RBC 3.20 L (3.80-5.40) m/uL Hgb 8.3 L (11.4-16.0) gm/dL Hct 26.0 L (34.0-46.0) % Chloride 109 H (98-107) mmol/L BUN 19 H (7-17) mg/dL Ur Specific [place] (1.001-1.035) Urine Protein (Negative) Urine Ketones (Negative) Crossmatch See Detail 08/26/18 08/26/18 08/26/18 Range/Units 02:15 02:47 07:53 RBC 2.81 L 2.78 L (3.80-5.40) m/uL Hgb 7.3 L 7.4 L (11.4-16.0) gm/dL Hct 22.9 L 23.1 L (34.0-46.0) % Chloride (98-107) mmol/L BUN (7-17) mg/dL Ur Specific [place] 1.043 H (1.001-1.035) Urine Protein Trace H (Negative) Urine Ketones 1+ H (Negative) Crossmatch 08/26/18 Range/Units 14:13 RBC 2.72 L (3.80-5.40) m/uL Hgb 7.0 L (11.4-16.0) gm/dL Hct 22.5 L (34.0-46.0) % Chloride (98-107) mmol/L BUN (7-17) mg/dL Ur Specific [place] (1.001-1.035) Urine Protein (Negative) Urine Ketones (Negative) Crossmatch Comments: No imaging available on current hospitalization. Assessment and Plan (1) GI bleed Narrative/Plan: 47-year-old female with medical history significant for hypothyroidism, hypertension, GERD and prior Joaquín-en-Y dark maroon-colored stool describing dark stool with bright red blood noted in the room of the toilet. She denies any prior history of GI bleeding and denies any current NSAID therapy. Currently she is on home omeprazole therapy daily. Last endoscopic evaluation was in 2015 at which time the patient underwent EGD and colonoscopy prior to her gastric bypass surgery. Extensive discussion with the patient on possible etiologies of the GI bleed including upper GI bleed with differential including Kaylie-Brumfield tear, esophagitis/gastritis, anastomotic site ulcer, peptic ulcer disease or other etiology with lower GI bleed also not excluded given the patient's description. Did discuss upper endoscopy for evaluation however the surgical service has also seen the patient and her finding on endoscopic evaluation tomorrow. We'll defer to their expertise at this time. Current Visit: Yes Status: Acute Code(s): K92.2 - GASTROINTESTINAL HEMORRHAGE, UNSPECIFIED SNOMED Code(s): 41135730 (2) Acute blood loss anemia Current Visit: No Status: Acute Code(s): D62 - ACUTE POSTHEMORRHAGIC ANEMIA SNOMED Code(s): 629691370 (3) Gastroesophageal reflux disease Current Visit: No Status: Chronic Code(s): K21.9 - GASTRO-ESOPHAGEAL REFLUX DISEASE WITHOUT ESOPHAGITIS SNOMED Code(s): 684332576 Plan: Supportive care Clear liquid diet Continue IV Protonix twice daily Continue to monitor hemoglobin and transfuse as needed Continue to monitor stool output Avoid NSAID use Surgical service also consulted and planning for endoscopic evaluation, we'll defer to their management and standby at this time Thank you for allowing us to participate in the care of this patient
--- NOTE | 2018-08-26 19:39 | PN ---
PROGRESS NOTE DATE OF SERVICE: 08/26/2018. This 47-year-old woman is admitted with GI bleed with acute blood loss anemia as well. Hemoglobin is 7 today. No active bleeding is noted. The patient had a previous gastric bypass surgery also. No chest pain. No palpitations. No fever. PAST MEDICAL HISTORY: Reviewed. REVIEW OF SYSTEMS: CARDIOVASCULAR: No angina. RESPIRATORY: As mentioned. GI: No nausea. : No dysuria. NERVOUS SYSTEM: No numbness or weakness. CURRENT MEDICATIONS: Reviewed and include: 1. Tylenol 500 q.6h p.r.n. 2. [place] 5 mg q.6h. 3. Ventolin. 4. Xanax 0.5 t.i.d. 5. Symbicort 80/4.5 b.i.d. 6. Synthroid 150 mg p.o. daily. 7. Narcan 0.2 q.2h p.r.n. 8. Protonix 40 mg b.i.d. 9. Zoloft 100 mg daily. 10.Restoril. PHYSICAL EXAM: Patient is alert, oriented x2. Pulse is 84, blood pressure 112/56, respiration 18, temperature 97.2, pulse ox 98% on room air. HEENT: Conjunctivae pale. NECK: No jugular venous distention. CARDIOVASCULAR: S1, S2. RESPIRATORY: Breath sounds diminished in the bases. A few scattered rhonchi. ABDOMEN: Soft, nontender. LEGS: No edema, no swelling. NERVOUS SYSTEM: No focal deficits. LAB STUDIES: WBC 12.2, hemoglobin 7. ASSESSMENT: 1. Acute upper gastrointestinal bleeding with acute on chronic blood-loss anemia. 2. History of gastric bypass surgery. 3. History of asthma. 4. Fibromyalgia. 5. Gastroesophageal reflux disease. 6. Hypertension. 7. Hyperlipidemia. 8. History of degenerative joint disease. 9. History of bariatric surgery. 10.History of cardiac catheterization. 11.History of cholecystectomy. 12.History of , anxiety, depression. 13.FULL CODE. RECOMMENDATIONS AND DISCUSSION: This 47-year-old woman who presented with multiple complex medical issues, will monitor the patient closely. Continue the current management and symptomatic treatments. Otherwise at this time, I recommend transfusions and closely follow with Gastroenterology possible endoscopies. Follow with Surgery. Guarded prognosis. Further recommendations to follow. MMODL / IJN: [id number] /
[2018-08-26] MEDS: SYMBICORT 80-4.5 MCG INHALER INHALATION SCH (19:53)
[2018-08-26 20:22] LABS: Basophils % (A) 0 %; Eosinophils # (A) 0.2 k/uL (0-0.7); Eosinophils % (A) 3 %; HCT 22.6 % (34.0-46.0); HGB 7.4 gm/dL (11.4-16.0); Lymphocytes % (A) 41 %; MCH 27.3 pg (25.0-35.0); MCHC 32.9 g/dL (31.0-37.0); Mean Platelet Volume 6.5; Monocytes # (A) 0.3 k/uL (0-1.0); Monocytes % (A) 6 %; Neutrophils # (A) 2.3 k/uL (1.3-7.7); Neutrophils % (A) 47 %; Platelet Count 213 k/uL (150-450); RBC 2.72 m/uL (3.80-5.40); RDW 14.4 % (11.5-15.5); WBC 4.8 k/uL (3.8-10.6)
--- NOTE | 2018-08-26 21:22 | HP ---
HISTORY AND PHYSICAL DATE OF SERVICE: 08/25/2018. CHIEF COMPLAINT: GI bleed. HISTORY OF PRESENT ILLNESS: This 47-year-old woman with a past medical history of multiple medical problems including asthma, fibromyalgia, GERD, hypertension, hyperlipidemia, history of DJD, was referred from [facility] because the patient felt GI bleed. The patient had an episode of gastrointestinal bleed last night. The patient was recently admitted to [facility] and had multiple evaluations including surgery for nasal fracture and apparently brain bleed from a fall. The patient was also taking NSAIDs. The patient initially had later turned to melenic stools. Hemoglobin found to be 8.3. The patient admitted to the hospital for further evaluation and treatment. There is no history of fever, rigors or chills. No headache, loss of consciousness or seizures. PAST MEDICAL HISTORY: History of fibromyalgia, GERD, hypertension, hyperlipidemia, history of bariatric surgery. history of appendectomy. MEDICATIONS: Home medications are: 1. Zoloft 100 mg. 2. Omeprazole 20 mg daily. 3. Synthroid 150 mcg daily. 4. Advair 100/50 1 puff b.i.d. 5. Zyrtec 10 mg daily. 6. Ventolin 1 to 2 puffs q.6h p.r.n. 7. Hyzaar 50/12.5 one p.o. daily. ALLERGIES: PENICILLIN. FAMILY HISTORY: History of breast cancer in the family. SOCIAL HISTORY: No history of smoking. Occasional alcohol intake. REVIEW OF SYSTEMS: ENT: No diminished hearing. No diminished vision. CARDIOVASCULAR: No angina or palpitations. RESPIRATORY: As mentioned earlier. GASTROINTESTINAL: As mentioned earlier. : No dysuria. NERVOUS SYSTEM: No numbness or weakness. ALLERGY/IMMUNOLOGY: No asthma or hayfever. MUSCULOSKELETAL: As mentioned earlier. HEMATOLOGY/ONCOLOGY: No history of anemia. ENDOCRINE: Hypothyroidism. CONSTITUTIONAL: As mentioned earlier. DERMATOLOGY: Negative. RHEUMATOLOGY: Negative. PSYCHIATRY: As mentioned earlier. PHYSICAL EXAMINATION: Alert and oriented x3. Pulse 77. Blood pressure 120/58. Respiration 18, temperature is 98.2, pulse ox 98% on room air. HEENT: Conjunctivae pale. Oral mucosa moist. Neck is no jugular venous distention. No carotid bruit. No lymph node enlargement. CARDIOVASCULAR: S1, S2 muffled. No S3, no S4. RESPIRATORY: Breath sounds diminished in the bases. A few scattered rhonchi. No crackles. ABDOMEN: Soft. Mild diffuse discomfort in the epigastrium. Otherwise, no guarding, no rigidity. No mass palpable. LEGS: No edema. No swelling. Nervous system: Higher functions as mentioned earlier, moves all 4 limbs. No focal motor or sensory deficits. LYMPHATICS: No lymph nodes palpable in the neck, axilla or groin. SKIN: No ulcers, rashes or bleeding. JOINTS: No active deforming arthropathy. LAB STUDIES: WBC 6.7, hemoglobin is 8.2. Other labs are noted. ASSESSMENT: 1. Acute upper gastrointestinal bleeding with acute blood loss anemia. 2. History of recent nasal fracture and as well as intracranial bleeding. 3. Acute blood loss anemia. 4. Asthma. 5. Fibromyalgia. 6. Gastroesophageal reflux disease. 7. Hypertension. 8. Hyperlipidemia. 9. Degenerative joint disease. 10.History of gastric bypass surgery, Joaquín-en-Y. 11.History of cardiac catheterization. 12.History of tubal ligation. 13.History of motion sickness. 14.History of anxiety, depression. RECOMMENDATIONS AND DISCUSSION: This 47-year-old woman who presented with multiple complex medical issues, we will monitor the patient closely. Continue the current medications, management and symptomatic treatment. Will monitor hemoglobin and H & H closely and transfuse hemoglobin less than 7. Recommend Gastroenterology surgical evaluation. Possible endoscope. Resume the home medications. Protonix. Hold NSAIDs and prognosis guarded because of multiple complex medical issues. further recommendations to follow. See orders for details. A copy of this dictation being forwarded to Dr. Skyler Bey who is the primary physician. MMODL / IJN: [id number] /
[2018-08-27] MEDS: SYMBICORT 80-4.5 MCG INHALER INHALATION SCH ×5 (00:04→21:46)
[2018-08-27] MEDS: LEVOTHYROXINE 75 MCG TAB PO SCH (06:23)
[2018-08-27 07:21] LABS: Basophils % (A) 1 %; Eosinophils # (A) 0.2 k/uL (0-0.7); Eosinophils % (A) 4 %; HCT 25.9 % (34.0-46.0); HGB 8.5 gm/dL (11.4-16.0); Lymphocytes # (A) 1.5 k/uL (1.0-4.8); Lymphocytes % (A) 38 %; MCH 26.9 pg (25.0-35.0); MCHC 32.8 g/dL (31.0-37.0); Mean Platelet Volume 7.1; Monocytes # (A) 0.3 k/uL (0-1.0); Monocytes % (A) 7 %; Neutrophils # (A) 1.9 k/uL (1.3-7.7); Neutrophils % (A) 47 %; Platelet Count 196 k/uL (150-450); RBC 3.15 m/uL (3.80-5.40)
[2018-08-27 07:39] LABS: African American GFR (CKD) >90 (>60 ml/min/1.73 sqM); Anion Gap 3 mmol/L; Blood Urea Nitrogen 9 mg/dL (7-17); Calcium 8.9 mg/dL (8.4-10.2); Carbon Dioxide 27 mmol/L (22-30); Chloride 111 mmol/L (98-107); Glucose 85 mg/dL (74-99); Potassium 4.5 mmol/L (3.5-5.1); Sodium 141 mmol/L (137-145)
--- NOTE | 2018-08-27 08:34 | HP ---
HISTORY AND PHYSICAL DATE OF SERVICE: 08/25/2018 CHIEF COMPLAINT: GI bleed. HISTORY OF PRESENT ILLNESS: This 47-year-old woman with a past medical history of multiple medical problems including history of asthma, chest pain, diabetes type 2, fibromyalgia, GERD, hypertension, hyperlipidemia, history of DJD, history of appendectomy, bariatric surgery, Joaquín-en-Y surgery, being followed by Dr. Sotero Holland in the [place] area, recently had a fall by missing the step and the patient apparently had a nasal bone fracture and intracranial bleeding also. The patient was evaluated in [facility] and the patient had surgery for the nasal bone fracture. The patient apparently might have taken couple of Motrin recently and last night about 10:00 pm patient noted bowel movements with burgundy in color. Subsequently the color became more black. Multiple episodes are noted. Hemoglobin is 9.1, but currently the hemoglobin is 8.8. The patient admitted to the hospital for further evaluation and treatment. The patient is complaining of minimal upper abdominal discomfort. There is no history of fever, rigors. No history of headache, loss of consciousness or seizures at this time. The patient had abdominoplasty and subsequent infections, which was also treated in [facility] as well. There is no history of fever rigors no headache, loss of consciousness, seizures at this time. PAST MEDICAL HISTORY: History of asthma, chest pain, diabetes type 2, fibromyalgia, GERD, hypertension, hypertension, hyperlipidemia, history of DJD, history of bariatric surgery, appendectomy. MEDICATIONS: Home medications are: 1. Zoloft 100 mg p.o. daily. 2. Omeprazole 20 mg p.o. daily. 3. Synthroid 150 mcg. 4. Advair 500/50 one p.o. b.i.d. 5. Zyrtec 10 mg p.o. 6. Ventolin HFA 1-2 puffs q.6h p.r.n. 7. Hyzaar 50/12.5 mg p.o. daily. ALLERGIES: PENICILLIN. FAMILY HISTORY: History of breast cancer in the family. SOCIAL HISTORY: No history of smoking. Occasional alcohol intake. REVIEW OF SYSTEMS: ENT: No diminished vision. No diminished hearing. CARDIOVASCULAR: No angina. RESPIRATION:S no cough. GI mentioned earlier. : No dysuria. NERVOUS SYSTEM: No asthma or hayfever. MUSCULOSKELETAL as mentioned hematology. HEMATOLOGY: As mentioned earlier. ENDOCRINE: Hypothyroid. CONSTITUTIONAL as mentioned earlier. DERMATOLOGY: Negative. RHEUMATOLOGY negative. PSYCHIATRY as mentioned earlier. PHYSICAL EXAM: Patient is alert, oriented x3. Pulse is 82, blood pressure 102/49, respirations 16, temperature 98.7, pulse ox 98% on room air. Conjunctivae pale. Oral mucosa moist. Neck is no jugular venous distention. No carotid bruit. No lymph nodes. CARDIOVASCULAR: S1, S2 muffled. No room for S3, S4. Breath sounds diminished in the bases. No rhonchi. No crackles. ABDOMEN: Soft. Mild diffuse discomfort in the epigastrium. Otherwise no mass palpable. No guarding. No rigidity. No tenderness. No ascites. No hepatosplenomegaly. LEGS: No edema. No swelling. NERVOUS system as mentioned earlier. Moves all 4 limbs. No focal motor or sensory deficits. LYMPHATICS: No lymph nodes palpable in the neck, axilla or groin. LABS: WBC 6.9, hemoglobin is 8.3. ASSESSMENT: 1. Possible upper gastrointestinal bleeding with acute blood loss anemia. 2. History of Joaquín-en-Y gastric bypass surgery. 3. History of recent fall, nasal fracture, intracranial bleeding. 4. History of asthma. 5. Diabetes type 2. 6. History of chest pain. 7. History of fibromyalgia. 8. Gastroesophageal reflux disease. 9. Hypertension. 10.Hyperlipidemia. 11.History of degenerative joint disease. 12.History of obstructive sleep apnea. 13.History of hypothyroidism. 14.History of obstructive sleep apnea, CPAP, history. 15.History of fatty liver. 16.History of bariatric surgery Joaquín-en-Y. 17.History of cholecystectomy. 18.History of partial hysterectomy. 19.History of bladder suspension. 20.History of anxiety, depression. RECOMMENDATIONS AND DISCUSSION: In this 47-year-old woman who presented with multiple complex medical issues, we will monitor the patient, closely continue the current medications, management and treatments. Otherwise, at this time, I would recommend H and H q.6 and hemoglobin, if is less than 7, gastroenterology evaluation. Surgical evaluation, possible EGD. Avoid NSAIDs and proton pump inhibitors. Resume the home medications. Cautious IV fluids. Prognosis guarded because of multiple complex medical issues. Type and cross 2 units and a copy of this dictation being forwarded to Dr. Bey who is the primary physician. Please send a copy of dictation. MMODL / IJN: [id number] /
--- NOTE | 2018-08-27 08:43 | XR ---
EXAMINATION TYPE: XR chest 1V portable DATE OF EXAM: 08/27/2018 COMPARISON: 01/19/2016 HISTORY: Shortness of breath TECHNIQUE: Single frontal view of the chest is obtained. FINDINGS: There is no focal air space opacity, pleural effusion, or pneumothorax seen. The cardiac silhouette size is within normal limits. The osseous structures are intact. Arthropathy shoulders. No overt failure. IMPRESSION: No acute process.
[2018-08-27] MEDS: PANTOPRAZOLE 40 MG/10 ML VIAL IV SCH ×2 (08:55→21:41)
[2018-08-27] MEDS: LOSARTAN-HCTZ 50-12.5 MG 1 EACH TAB PO SCH (08:55)
[2018-08-27] MEDS: SERTRALINE 100 MG TAB PO SCH (08:55)
[2018-08-27] MEDS ORDERED: PROPOFOL 10 MG/ML 20 ML VIAL IV ONE (11:44)
[2018-08-27] MEDS ORDERED: MIDAZOLAM 2 MG/2 ML VIAL ONE (11:44)
[2018-08-27] MEDS ORDERED: LACTATED RINGERS 1,000 ML IV ONE (11:57)
--- NOTE | 2018-08-27 11:57 | P.OP ---
Date of Procedure: 08/27/18 Preoperative Diagnosis: GI bleed Postoperative Diagnosis: Marginal ulcer at gastrojejunostomy Procedure(s) Performed: EGD Anesthesia: MAC Surgeon: Osman Lerner Pathology: other (Gastrojejunostomy) Condition: stable Disposition: PACU Description of Procedure: The patient's placed on the endoscopy table in the lateral position. She received IV sedation. The gastric was placed oropharynx passed in the esophagus and into the stomach. The patient a previous gastric bypass. The scope was then placed at the level of the gastrojejunostomy and there was a ulcer seen just below the gastrojejunostomy. This was biopsied. There is no evidence of any active bleeding. The scope was then placed down to the jejunum and there is known to any obstruction. Scope was withdrawn. The marginal ulcer was visualized at the gastric specimen. There is no active bleeding seen the scope was withdrawn the patient's gastric pouch appeared normal. The GE junction was at 40 cm. The distal esophagus appeared normal. The proximal esophagus. Normal. It appears that the patient's previous GI bleed was due to marginals. Patient will be treated medically.
--- NOTE | 2018-08-27 14:15 | P.PN ---
Subjective This is a pleasant 47 years old female with past medical history of asthma, fibromyalgia, GERD, hyperlipidemia, hypertension, osteoarthritis. Presents with bloody bowel movements with nausea and vomiting. Also she had some right upper quadrant and epigastric tenderness. She had EGD this morning by the surgical team showing: Non-bleeding intestinal ulcer below the gastrojejunostomy Objective - Vital Signs Vital signs: Vital Signs Temp 98.9 F 08/27/18 12:00 Pulse 98 08/27/18 12:00 Resp 18 08/27/18 12:00 BP 117/75 08/27/18 12:00 Pulse Ox 98 08/27/18 12:00 Intake & Output 08/26/18 08/27/18 08/27/18 18:59 06:59 18:59 Intake Total 1960 1235 290 Output Total 700 Balance 1960 535 290 Weight 83.189 kg Intake: IV 50 Intake, IV Titration 1000 350 Amount Sodium Chloride 0.9% 1, 1000 350 000 ml @ 75 mls/hr IV . [id number] [facility] Rx#:[id number] Oral 960 575 240 Blood Product 310 Rc As-1 Unit 310 [id number] Output: Urine 700 Other: # Voids 1 - Exam GENERAL: The patient is alert and oriented x3, not in any acute distress. Well developed, well nourished. HEENT: Pupils are round and equally reacting to light. EOMI. No scleral icterus. No conjunctival pallor. Normocephalic, atraumatic. No pharyngeal erythema. No thyromegaly. CARDIOVASCULAR: S1 and S2 present. No murmurs, rubs, or gallops. PULMONARY: Chest is clear to auscultation, no wheezing or crackles. ABDOMEN: Soft, right upper quadrant and epigastric tenderness which are mild and no rebound tenderness. nondistended, normoactive bowel sounds. No palpable organomegaly. MUSCULOSKELETAL: No joint swelling or deformity. EXTREMITIES: No cyanosis, clubbing, or pedal edema. NEUROLOGICAL: Gross neurological examination did not reveal any focal deficits. SKIN: No rashes. - Labs CBC & Chem 7: 08/27/18 06:44 08/27/18 06:44 Labs: Abnormal Lab Results - Last 24 Hours (Table) 08/25/18 08/26/18 08/26/18 Range/Units 20:20 14:13 20:06 RBC 2.72 L 2.72 L (3.80-5.40) m/uL Hgb 7.0 L 7.4 L (11.4-16.0) gm/dL Hct 22.5 L 22.6 L (34.0-46.0) % Chloride (98-107) mmol/L Crossmatch See Detail 08/27/18 08/27/18 Range/Units 06:44 06:44 RBC 3.15 L (3.80-5.40) m/uL Hgb 8.5 L (11.4-16.0) gm/dL Hct 25.9 L (34.0-46.0) % Chloride 111 H (98-107) mmol/L Crossmatch Assessment and Plan Assessment: Acute non-bleeding intestinal ulcer below the gastrojejunostomy point Blood per rectum, secondary to above Acute blood loss anemia, secondary to above History of asthma, not an active issue History of fibromyalgia History of GERD Hyperlipidemia Hypertension History of posterior arthritis Plan: This is a pleasant 47 years old female who presents with signs and symptoms of intestinal ulcer, nonbleeding. Seen today and the EGD. Patient vitals stable. Continue with antiacids. Follow-up surgery recommendation. Labs and medication were reviewed.. Continue same treatment. Continue with symptomatic treatment. Resume home medication. Monitor lytes and vitals. DVT and GI prophylaxis. Further recommendations of the clinical course of the patient DVT prophylaxis: No heparin and review of GI bleed GI Prophylaxis Protonix
[2018-08-27] MEDS: SUCRALFATE 1 GM TAB PO SCH ×2 (15:59→16:42)
[2018-08-27] MEDS: SODIUM CHLORIDE 0.9% 1,000 ML IV SCH ×2 (16:38→23:16)
--- NOTE | 2018-08-27 17:33 | P.PN ---
Subjective Progress Note Date: 08/27/18 Principal diagnosis: Upper GI bleed, Patient seen after EGD. She is reporting no abdominal pain, nausea or vomiting. Has tolerated her diet. Objective - Vital Signs Vital signs: Vital Signs Temp 98.9 F 08/27/18 12:00 Pulse 98 08/27/18 12:00 Resp 18 08/27/18 12:00 BP 117/75 08/27/18 12:00 Pulse Ox 98 08/27/18 12:00 Intake & Output 08/26/18 08/27/18 08/27/18 18:59 06:59 18:59 Intake Total 1960 1235 50 Output Total 700 Balance 1960 535 50 Weight 83.189 kg Intake: IV 50 Intake, IV Titration 1000 350 Amount Sodium Chloride 0.9% 1, 1000 350 000 ml @ 75 mls/hr IV . [id number] [facility] Rx#:[id number] Oral 960 575 Blood Product 310 Rc As-1 Unit 310 [id number] Output: Urine 700 Other: # Voids 1 - Exam On physical examination, patient appears comfortable in no apparent distress. HEAD: Normocephalic, atraumatic. EYES: No scleral icterus. No conjunctival injection. MOUTH: No lesions, tongue midline. NECK: Trachea midline, no gross abnormalities. CHEST: Clear to auscultation with no wheezing or rhonchi appreciated. HEART: Regular rate and rhythm. ABDOMEN: Soft. Bowel sounds are positive. No organomegaly. No guarding or rigidity. EXTREMITIES: No pedal edema. SKIN: No rashes, no jaundice. NEUROLOGIC: Alert and oriented x3. No focal deficits. - Labs CBC & Chem 7: 08/27/18 06:44 08/27/18 06:44 Labs: Abnormal Lab Results - Last 24 Hours (Table) 08/25/18 08/26/18 08/26/18 Range/Units 20:20 14:13 20:06 RBC 2.72 L 2.72 L (3.80-5.40) m/uL Hgb 7.0 L 7.4 L (11.4-16.0) gm/dL Hct 22.5 L 22.6 L (34.0-46.0) % Chloride (98-107) mmol/L Crossmatch See Detail 08/27/18 08/27/18 Range/Units 06:44 06:44 RBC 3.15 L (3.80-5.40) m/uL Hgb 8.5 L (11.4-16.0) gm/dL Hct 25.9 L (34.0-46.0) % Chloride 111 H (98-107) mmol/L Crossmatch Assessment and Plan (1) GI bleed Narrative/Plan: 47-year-old female with medical history significant for hypothyroidism, hypertension, GERD and prior Joaquín-en-Y dark maroon-colored stool describing dark stool with bright red blood noted in the room of the toilet. She denies any prior history of GI bleeding and denies any current NSAID therapy. Currently she is on home omeprazole therapy daily. Last endoscopic evaluation was in 2015 at which time the patient underwent EGD and colonoscopy prior to her gastric bypass surgery. Patient taken for EGD today with surgical service with findings of anastomotic site ulcer. Current Visit: Yes Status: Acute Code(s): K92.2 - GASTROINTESTINAL HEMORRHAGE, UNSPECIFIED SNOMED Code(s): 95811645 (2) Acute blood loss anemia Current Visit: No Status: Acute Code(s): D62 - ACUTE POSTHEMORRHAGIC ANEMIA SNOMED Code(s): 926764309 (3) Gastroesophageal reflux disease Current Visit: No Status: Chronic Code(s): K21.9 - GASTRO-ESOPHAGEAL REFLUX DISEASE WITHOUT ESOPHAGITIS SNOMED Code(s): 445023987 Plan: Supportive care Diet per surgical service Continue IV Protonix twice daily Continue to monitor hemoglobin and transfuse as needed Continue to monitor stool output Avoid NSAID use Thank you for allowing us to participate in the care of the patient, the GI service will stand by, please call us back with any questions or concerns
[2018-08-27] MEDS: HYDROcodone/APAP 5-325MG 1 EACH TAB PO PRN (18:27)
[2018-08-28] MEDS: LEVOTHYROXINE 75 MCG TAB PO SCH (06:29)
[2018-08-28] MEDS: SUCRALFATE 1 GM TAB PO SCH ×2 (06:29→11:54)
[2018-08-28 07:29] LABS: Basophils % (A) 0 %; Eosinophils # (A) 0.2 k/uL (0-0.7); Eosinophils % (A) 4 %; HCT 27.2 % (34.0-46.0); HGB 8.6 gm/dL (11.4-16.0); Lymphocytes # (A) 1.6 k/uL (1.0-4.8); Lymphocytes % (A) 32 %; MCHC 31.7 g/dL (31.0-37.0); MCV 81.9 fL (80.0-100.0); Mean Platelet Volume 6.6; Monocytes # (A) 0.3 k/uL (0-1.0); Monocytes % (A) 6 %; Neutrophils # (A) 2.7 k/uL (1.3-7.7); Neutrophils % (A) 55 %; Platelet Count 259 k/uL (150-450); RBC 3.32 m/uL (3.80-5.40); RDW 14.7 % (11.5-15.5); WBC 4.9 k/uL (3.8-10.6)
[2018-08-28] MEDS ORDERED: FERROUS SULFATE 325 MG TAB PO SCH (07:30)
[2018-08-28] MEDS: SERTRALINE 100 MG TAB PO SCH (09:50)
[2018-08-28] MEDS: PANTOPRAZOLE 40 MG/10 ML VIAL IV SCH (09:50)
[2018-08-28] MEDS: LOSARTAN-HCTZ 50-12.5 MG 1 EACH TAB PO SCH (09:50)
[2018-08-28] MEDS: SYMBICORT 80-4.5 MCG INHALER INHALATION SCH (09:57)
[2018-08-28 10:45] VITALS: RESP 18
--- NOTE | 2018-08-28 11:09 | P.DS ---
Providers Date of admission: 08/25/18 21:06 Attending physician: Bev Chapa Consults: 08/25/18 20:59 Consult Physician Routine Consulting Provider: Osman Lerner Consult Reason/Comments: GI bleed Do you want consulting provider notified?: Yes Primary care physician: Alexis Holland MD Hospital Course: Diagnoses: Acute non-bleeding intestinal ulcer below the gastrojejunostomy point Blood per rectum, secondary to above Acute blood loss anemia, secondary to above History of asthma, not an active issue History of fibromyalgia History of GERD Hyperlipidemia Hypertension History of posterior arthritis Hospital course: This is a pleasant 47 years old female with past medical history of asthma, fibromyalgia, GERD, hyperlipidemia, hypertension, osteoarthritis. Presents with bloody bowel movements with nausea and vomiting. Also she had some right upper quadrant and epigastric tenderness. Patient has been using NSAIDs frequently for her recent nasal bone fracture. Surgery team evaluated the patient. She had EGD on 08/27/2018 by the surgical team showing: Non-bleeding intestinal ulcer below the gastrojejunostomy. Patient was treated with Protonix, sucralfate was added. Also patient was started on iron pills and her hemoglobin is stable at 8.6. Patient feels better and back to her usual state with no abdominal pain or nausea vomiting. Patient is tolerating diet well. She had n ormal bowel movement with no blood in it. Patient was counseled against using more NSAIDs. Also I counseled the patient extensively for the need to follow-up with her biopsy results. She said she is going to do that and she agrees with the appointments made with the surgery team and its timing, stating that she will follow-up. Risks including but not limited to cancer, infection, versus others are explained to the patient and she verbalized understanding and acceptance. Patient thinks she is back to her usual state and she wants to go home. Case was discussed with the surgical team and they agree with discharge and the patient today. Patient will be discharged on PPI on Carafate. Problems and management plan were discussed with the patient and he verbalized understanding and acceptance Patient was found stable and can be discharged home however he needs follow-up as an outpatient. Patient agrees with the appointments and the timing made with her PCP and surgery team and stated she will follow-up. Gen: patient is a AAOx3, no distress CVS: S1-S2, RRR, no murmur Lungs: B/L CTA, no wheezing Abdomen: soft, no distention, no tenderness, positive bowel sounds Extremity: no leg edema or induration Time spent more than 35 minutes Patient Condition at Discharge: Fair Plan - Discharge Summary New Discharge Prescriptions: New Sucralfate [Carafate] 1 gm PO TID #90 tablet Omeprazole 40 mg PO DAILY #30 cap Discontinued Omeprazole 20 mg PO DAILY No Action Levothyroxine Sodium [Synthroid] 150 mcg PO DAILY Losartan-Hctz 50-12.5 mg [Hyzaar 50-12.5] 1 tab PO DAILY Cetirizine HCl [Zyrtec] 10 mg PO DAILY Sertraline HCl [Zoloft] 100 mg PO DAILY Fluticasone/Salmeterol [Advair 100-50 Diskus] 1 inhalation PO RT-Q12H Albuterol Inhaler [Ventolin Hfa Inhaler] 1 - 2 puff INHALATION RT-Q6H PRN PRN Reason: Shortness Of Breath Discharge Medication List Levothyroxine Sodium [Synthroid] 150 mcg PO DAILY 05/16/14 [History] Losartan-Hctz 50-12.5 mg [Hyzaar 50-12.5] 1 tab PO DAILY 06/29/16 [History] Cetirizine HCl [Zyrtec] 10 mg PO DAILY 08/08/17 [History] Albuterol Inhaler [Ventolin Hfa Inhaler] 1 - 2 puff INHALATION RT-Q6H PRN 08/25/18 [History] Fluticasone/Salmeterol [Advair 100-50 Diskus] 1 inhalation PO RT-Q12H 08/25/18 [History] Sertraline HCl [Zoloft] 100 mg PO DAILY 08/25/18 [History] Omeprazole 40 mg PO DAILY #30 cap 08/27/18 [Rx] Sucralfate [Carafate] 1 gm PO TID #90 tablet 08/27/18 [Rx] Follow up Appointment(s)/Referral(s): Alexis Holland MD [Primary Care Provider] - 09/06/18 10:15 am Osman Lerner MD [STAFF PHYSICIAN] - 09/06/18 1:45 pm (Dr. Lerner only in of tuesdays and Thursdays. No morning appointments available.) Patient Instructions/Handouts: Diet for Stomach Ulcers and Gastritis (ED) Activity/Diet/Wound Care/Special Instructions: Avoid all NSAIDS like advil/ibuprofen/motrin and aleve/naproxen - these increase your bleeding risk.
[2018-08-28 12:07] VITALS: BP 130/66; PULSE 79; TEMP 97.9
--- NOTE | 2018-08-28 12:23 | P.PN ---
Subjective Progress Note Date: 08/28/18 CHIEF COMPLAINT: GI bleed HISTORY OF PRESENT ILLNESS: Patient is status post EGD revealing a marginal ulcer at gastrojejunostomy. No further bleeding noted. Patient's hemoglobin is stable. She is tolerating diet. PHYSICAL EXAM: VITAL SIGNS: Reviewed. GENERAL: Well-developed in no acute distress. HEENT: No sclera icterus. Extraocular movements grossly intact. Moist buccal mucosa. Head is atraumatic, normocephalic. ABDOMEN: Soft. Nondistended. Nontender. NEUROLOGIC: Alert and oriented. Cranial nerves II through XII grossly intact. ASSESSMENT: 1. Acute GI bleed PLAN: Patient is stable for discharge home today. Patient to remain on Carafate and omeprazole at time of discharge. Follow-up with Dr. Lerner outpatient. Nurse practitioner note has been reviewed by physician. Signing provider agrees with the documented findings, assessment, and plan of care. Objective - Vital Signs Vital signs: Vital Signs Temp 97.9 F 08/28/18 11:59 Pulse 79 08/28/18 11:59 Resp 18 08/28/18 11:59 BP 130/66 08/28/18 11:59 Pulse Ox 97 08/28/18 11:59 Intake & Output 08/27/18 08/28/18 08/28/18 18:59 06:59 18:59 Intake Total 290 620 118 Balance 290 620 118 Weight 82.3 kg Intake: IV 50 Oral 240 620 118 Other: # Voids 1 - Labs CBC & Chem 7: 08/28/18 07:02 08/27/18 06:44 Labs: Abnormal Lab Results - Last 24 Hours (Table) 08/28/18 Range/Units 07:02 RBC 3.32 L (3.80-5.40) m/uL Hgb 8.6 L (11.4-16.0) gm/dL Hct 27.2 L (34.0-46.0) %
== END 2018-08-28 14:13 | disposition home or self-care (01) | DRG 378 ==
LOC: EC 19:56 → 3SCARD 21:06
PROVIDERS: ADMIT Hospitalist; ATTEND Hospitalist
PROC: 0DB88ZX Excision of Small Intestine, Via Natural or Artificial Opening Endoscopic, Diagnostic (ICD-10-PCS; principal; 2018-08-26)
PROC: 30233N1 Transfusion of Nonautologous Red Blood Cells into Peripheral Vein, Percutaneous Approach (ICD-10-PCS; 2018-08-26)
DX: K28.4 Chronic or unspecified gastrojejunal ulcer with hemorrhage (principal); D62 Acute posthemorrhagic anemia; K76.0 Fatty (change of) liver, not elsewhere classified; E11.9 Type 2 diabetes mellitus without complications; D50.0 Iron deficiency anemia secondary to blood loss (chronic); E78.5 Hyperlipidemia, unspecified; E89.0 Postprocedural hypothyroidism; F32.9 Major depressive disorder, single episode, unspecified; G47.33 Obstructive sleep apnea (adult) (pediatric); J45.909 Unspecified asthma, uncomplicated; I10 Essential (primary) hypertension; F41.9 Anxiety disorder, unspecified; K21.9 Gastro-esophageal reflux disease without esophagitis; M54.9 Dorsalgia, unspecified; M79.7 Fibromyalgia; M19.90 Unspecified osteoarthritis, unspecified site; Z79.51 Long term (current) use of inhaled steroids; Z79.890 Hormone replacement therapy; Z79.899 Other long term (current) drug therapy; Z98.84 Bariatric surgery status; Z99.89 Dependence on other enabling machines and devices; Z90.49 Acquired absence of other specified parts of digestive tract; Z90.711 Acquired absence of uterus with remaining cervical stump; Z87.81 Personal history of (healed) traumatic fracture; Z98.890 Other specified postprocedural states; Z98.51 Tubal ligation status; Z88.0 Allergy status to penicillin; Z80.3 Family history of malignant neoplasm of breast; Z82.3 Family history of stroke
CPT/HCPCS: 36415; 43239; 71045; 80048; 81003; 85025; 86850; 86900; 86901; 86920; 88305; 94640; 96374; 99285

== ENCOUNTER → 2019-09-25 | Outpatient (CLI) | payer OTHER ==
[2019-09-25 16:01] LABS: HCT 36.6 % (34.0-46.0); HGB 11.7 gm/dL (11.4-16.0); Hypochromasia Slight; MCH 26.9 pg (25.0-35.0); MCV 84.2 fL (80.0-100.0); Mean Platelet Volume 7.2; Platelet Count 288 k/uL (150-450); RBC 4.34 m/uL (3.80-5.40); RDW 15.4 % (11.5-15.5); WBC 5.9 k/uL (3.8-10.6)
[2019-09-25 16:34] LABS: ALT 17 U/L (4-34); AST 33 U/L (14-36); African American GFR (CKD) >90 (>60 ml/min/1.73 sqM); Albumin 4.1 g/dL (3.5-5.0); Alkaline Phosphatase 64 U/L (38-126); Anion Gap 7 mmol/L; Blood Urea Nitrogen 19 mg/dL (7-17); Calcium 9.3 mg/dL (8.4-10.2); Carbon Dioxide 25 mmol/L (22-30); Chloride 105 mmol/L (98-107); Glucose 95 mg/dL (74-99); Non-African American GFR(CKD) >90 (>60 ml/min/1.73 sqM); Potassium 3.8 mmol/L (3.5-5.1); Sodium 137 mmol/L (137-145); Total Bilirubin 0.6 mg/dL (0.2-1.3)
[2019-09-25 17:03] LABS: INR 0.9 (<1.2); Partial Thromboplastin Time 22.8 sec (22.0-30.0); Prothrombin Time 9.5 sec (9.0-12.0)
== END | disposition home or self-care (01) ==
LOC: LABPAT 14:03
PROVIDERS: ATTEND Orthopaedic Surgery Sports Medicine
DX: Z01.818 Encounter for other preprocedural examination (principal); Z01.812 Encounter for preprocedural laboratory examination
CPT/HCPCS: 36415; 80053; 85027; 85610; 85730; 87070

== ENCOUNTER 2019-10-03 07:41 | Observation (INO) | payer OTHER ==
[2019-10-01 14:48] VITALS: BMI 32.8
[~2019-10-03 07:41] MED LIST changes: -ACETAMINOPHEN IV (For NPO) 1,000 MG in EMPTY BAG 1 BAG IVPB ONE; +ACETAMINOPHEN TAB 500 MG TAB PO ONE; -DEXAMETHASONE SOD PHOSPHATE 10 MG/ML 1 ML VIAL IV ONE; +GABAPENTIN 300 MG CAP PO ONE; -HEPARIN SODIUM,PORCINE 5,000 UNIT/ML 1 ML VIAL SQ ONE; -LIDOCAINE 1% 20 ML VIAL (10MG/ML) FOR IV START INTRADERMA PRN; +MELOXICAM 7.5 MG TAB PO ONE; -MIDAZOLAM 2 MG/2 ML VIAL IV PRN; +ONDANSETRON 4 MG/2 ML VIAL IVP ONE; -SCOPOLAMINE 1.5MG/72HR PATCH TRANSDERM ONE; +TRANEXAMIC ACID 1,000 MG in SODIUM CHLORIDE 0.9% 100 ML IVPB ONE; -ceFAZolin IN SWFI 2 GM/20 ML SYRINGE IVP ONE; -fentaNYL (PF) 50 MCG/ML 2 ML AMP IV PRN
[2019-10-03] MEDS ORDERED: ONDANSETRON 4 MG/2 ML VIAL IVP ONE (07:51)
[2019-10-03] MEDS ORDERED: HYDROmorphone 0.5 MG/0.5 ML SYRINGE IVP PRN (07:51)
[2019-10-03] MEDS ORDERED: MIDAZOLAM 2 MG/2 ML VIAL IV PRN (07:51)
[2019-10-03] MEDS ORDERED: DEXAMETHASONE SOD PHOSPHATE 10 MG/ML 1 ML VIAL IV ONE (07:51)
[2019-10-03] MEDS ORDERED: ACETAMINOPHEN TAB 500 MG TAB ONE (08:09)
[2019-10-03] MEDS ORDERED: ONDANSETRON 4 MG/2 ML VIAL ONE (08:09)
[2019-10-03] MEDS ORDERED: SCOPOLAMINE 1.5MG/72HR PATCH TRANSDERM ONE (08:42)
[2019-10-03] MEDS: LACTATED RINGERS 1,000 ML IV SCH ×3 (08:42→21:11)
[2019-10-03] MEDS ORDERED: MIDAZOLAM 2 MG/2 ML VIAL IVP ONE ×2 (08:45→08:48)
--- NOTE | 2019-10-03 09:15 | P.ANPRN ---
Procedure Note - Anesthesia - Nerve Block Performed Left Adductor Canal Infusion Time Out Performed: Yes Date of Procedure: 10/03/19 Procedure Start Time: 08:30 Procedure Stop Time: :42 Location of Patient: PreOp Indication: Acute Post-Operative Pain, Requested by Surgeon Sedation Type: Sedate with meaningful contact maintained Preparation: Sterile Prep, Sterile Dressing Position: Supine Catheter: Indwelling Needle Types: [employer] Needle Gauge: 18 Ultrasound used to visualize needle placement: Yes Ultrasound used to observe medication spread: Yes Injectate: 0.5% Ropivacaine (see comment for volume) (20 ml + decadron 4 mg) Blood Aspirated: No Pain Paresthesia on Injection Noted: No Resistance on Injection: Normal Image Stored and Saved: Yes Events: Uneventful and Well Tolerated
[2019-10-03] MEDS ORDERED: PROPOFOL 10 MG/ML 20 ML VIAL IV ONE (09:18)
[2019-10-03] MEDS ORDERED: MIDAZOLAM 2 MG/2 ML VIAL ONE (09:18)
[2019-10-03] MEDS ORDERED: TRANEXAMIC ACID 1,000 MG/10 ML VIAL ONE (09:18)
[2019-10-03] MEDS ORDERED: SODIUM CHLORIDE 0.9% 100 ML BAG ONE (09:18)
[2019-10-03] MEDS: ROPIVACAINE 246.25 MG, EPINEPHrine 0.5 MG, KETOROLAC 30 MG, cloNIDine HCL/PF 80 MCG, WA... MISCELLANE ONE ×10 (09:50→10:27)
[2019-10-03] MEDS ORDERED: ceFAZolin 3,000 MG in SODIUM CHLORIDE 0.9% IRRIGATIO 3,000 ML IRRIGATION ONE (09:50)
[2019-10-03] MEDS ORDERED: NA PHOS,M-B/NA PHOS,DI-BA 133 ML ENEMA RECTAL PRN (11:08)
[2019-10-03] MEDS ORDERED: HYDROcodone/APAP 5-325MG 1 EACH TAB PO PRN (11:08)
[2019-10-03] MEDS ORDERED: ACETAMINOPHEN TAB 325 MG TAB PO PRN (11:08)
[2019-10-03] MEDS ORDERED: NALOXONE 0.4 MG/ML 1 ML VIAL IV PRN (11:08)
[2019-10-03] MEDS ORDERED: traMADol 50 MG TAB PO PRN (11:08)
[2019-10-03] MEDS ORDERED: MAGNESIUM HYDROXIDE 2,400 MG/10 ML CUP PO PRN (11:08)
[2019-10-03] MEDS ORDERED: TEMAZEPAM 15 MG CAP PO PRN (11:08)
[2019-10-03] MEDS ORDERED: bisacodyL 10 MG SUPP RECTAL PRN (11:08)
[2019-10-03] MEDS ORDERED: ONDANSETRON 4 MG/2 ML VIAL IVP PRN (11:08)
[2019-10-03] MEDS ORDERED: ROPIVACAINE 0.2%-NS ON-Q PUMP 1,090 MG, EMPTY PAIN BALL 1 EACH MISCELLANE PRN (11:23)
--- NOTE | 2019-10-03 12:05 | XR ---
Left knee HISTORY: Status post left knee arthroplasty 2 views of the left knee Patient is status post left knee arthroplasty. There is anatomic alignment. Lucency is present in the soft tissues. IMPRESSION: Orthopedic follow-up
[2019-10-03] MEDS ORDERED: ACETAMINOPHEN TAB 500 MG TAB PO PRN (15:40)
[2019-10-03] MEDS ORDERED: ALBUTEROL NEBULIZED 2.5 MG/3 ML INHALATION PRN (15:40)
--- NOTE | 2019-10-03 16:27 | P.CONS ---
History of Present Illness - Reason for Consult Recommendations regarding antidepressive medications. - History of Present Illness Patient very pleasant 48-year-old female admitted for a left Breast CA sepsis N surgery directed did not pass gas did not move her bowel yet. Patient is complaining of significant pain in the left knee surgical site area. Patient doesn't have a Lu catheter. Does have surgical drainage at this time. Review of Systems REVIEW OF SYSTEMS: CONSTITUTIONAL: No fever, no malaise, no fatigue. HEENT: No recent visual problems or hearing problems. Denied any sore throat. CARDIOVASCULAR: No chest pain, orthopnea, PND, no palpitations, no syncope. PULMONARY: No shortness of breath, no cough, no hemoptysis. GASTROINTESTINAL: No diarrhea, no nausea, no vomiting, no abdominal pain. NEUROLOGICAL: No headaches, no weakness, no numbness. HEMATOLOGICAL: Denies any bleeding or petechiae. GENITOURINARY: Denies any burning micturition, frequency, or urgency. MUSCULOSKELETAL/RHEUMATOLOGICAL: As mentioned in HPI ENDOCRINE: Denies any polyuria or polydipsia. The rest of the 14-point review of systems is negative. Past Medical History Past Medical History: Asthma, Chest Pain / Angina, Fibromyalgia, GERD/Reflux, GI Bleed, Hypertension, Osteoarthritis (OA), Thyroid Disorder Additional Past Medical History / Comment(s): DDD WITH BACK PAIN, hx. of FATTY LIVER. ,TORN LT ROTATOR CUFF 2016, tripped & fell last year, hit face, had brain bleed, ended up w/GI bleed after taking motrin, fell recently & tore left knee meniscus. History of Any Multi-Drug Resistant Organisms: None Reported Past Surgical History: Appendectomy, Bariatric Surgery, Bladder Surgery, Cholecystectomy, Heart Catheterization, Hysterectomy, Tubal Ligation Additional Past Surgical History / Comment(s): partial thyroidectomy, bladder suspension w/mesh (as of 06/28/17 patient has since undergone sx 4x to have various portions of mesh removed), sinus repair surgery, bilateral knee surgery (meniscus, femur fracture on rt) 01-18-16 [facility] GASTRIC BYPASS, EGD, COLONOSCOPY, panniculectomy 08/21/17 Past Anesthesia/Blood Transfusion Reactions: Family History of Problems w/ Anesthesia, Motion Sickness Additional Past Anesthesia/Blood Transfusion Reaction / Comm: Pt has difficulty waking up, difficult intubation. Pts grandmother has difficulty waking and also difficult intubation. Past Psychological History: Anxiety, Depression Smoking Status: Never smoker Past Alcohol Use History: Rare Past Drug Use History: None Reported - Past Family History Mother Family Medical History: Cancer Additional Family Medical History / Comment(s): Breast CA Father Family Medical History: Cancer, CVA/TIA Additional Family Medical History / Comment(s): - stroke Medications and Allergies Home Medications Medication Instructions Recorded Confirmed Type Levothyroxine Sodium [Synthroid] 150 mcg PO DAILY 05/16/14 10/01/19 History Losartan-Hctz 50-12.5 mg [Hyzaar 1 tab PO DAILY 06/29/16 10/01/19 History 50-12.5] Cetirizine HCl [Zyrtec] 10 mg PO DAILY 08/08/17 10/01/19 History Albuterol Inhaler (Mhu) [Ventolin 1 - 2 puff INHALATION RT-Q6H PRN 08/25/18 10/01/19 History Hfa Inhaler (Mhu)] Fluticasone/Salmeterol [Advair 1 inhalation PO RT-Q12H 08/25/18 10/01/19 History 100-50 Diskus] Sertraline HCl [Zoloft] 150 mg PO DAILY 08/25/18 10/01/19 History Omeprazole 40 mg PO DAILY #30 cap 08/27/18 10/01/19 Rx Acetaminophen Tab [Tylenol] 500 mg PO Q6HR PRN tab 08/28/18 10/01/19 Rx [place](Unknown Dose) 1 tab PO Q6H PRN 10/01/19 10/01/19 History Trazodone(Unknown Dose) 1 tab PO HS 10/01/19 10/01/19 History Allergies Allergy/AdvReac Type Severity Reaction Status Date / Time Penicillins Allergy Unknown Verified 10/03/19 08:06 Physical Exam Vitals: Vital Signs Temp Pulse Resp BP Pulse Ox 10/03/19 13:50 114/63 10/03/19 13:08 98.2 F 70 16 120/80 93 L 10/03/19 12:49 64 16 108/61 93 L 10/03/19 12:35 62 111/63 94 L 10/03/19 12:15 65 16 111/65 94 L 10/03/19 12:00 63 18 108/66 94 L 10/03/19 11:45 60 16 134/79 94 L 10/03/19 11:30 65 17 146/80 96 10/03/19 11:15 64 14 129/68 95 10/03/19 11:03 97.7 F 78 16 134/89 96 10/03/19 08:57 63 16 128/79 99 10/03/19 08:02 98.1 F 77 16 156/76 97 Intake and Output 10/03/19 10/03/19 10/03/19 06:59 14:59 22:59 Intake Total 951 Output Total 100 Balance 851 Intake: IV 951 Output: Estimated Blood Loss 100 Other: # Voids 1 Weight 85.5 kg PHYSICAL EXAMINATION: GENERAL: The patient is alert and oriented x3, not in any acute distress. Well developed, well nourished. HEENT: Pupils are round and equally reacting to light. EOMI. No scleral icterus. No conjunctival pallor. Normocephalic, atraumatic. No pharyngeal erythema. No thyromegaly. CARDIOVASCULAR: S1 and S2 present. No murmurs, rubs, or gallops. PULMONARY: Chest is clear to auscultation, no wheezing or crackles. ABDOMEN: Soft, nontender, nondistended, normoactive bowel sounds. No palpable organomegaly. MUSCULOSKELETAL: No joint swelling or deformity. EXTREMITIES: No cyanosis, clubbing, or pedal edema. Left knee wrapped with Lawson bandages NEUROLOGICAL: Gross neurological examination did not reveal any focal deficits. SKIN: No rashes. Assessment and Plan Plan: -Hypertension to avoid perioperative hypotension on hold off on losartan and hydrochlorothiazide. -Left knee arthroplasty postoperatively patient is an 81 mg aspirin twice a day for DVT prophylaxis pain management as per primary service -Esophageal reflux disease -Osteoarthritis -Hypothyroidism -Fibromyalgia For above-mentioned chronic visual problems patient will be resumed on appropriate home medications
[2019-10-03] MEDS: HYDROmorphone 0.5 MG/0.5 ML SYRINGE IVP PRN ×3 (16:40→23:07)
--- NOTE | 2019-10-03 18:02 | OP ---
OPERATIVE REPORT DATE OF PROCEDURE: 10/03/2019. SURGEON: Danilo He MD. DUDE WRANGLER: Gordon Damon PA-C. PREOPERATIVE DIAGNOSIS: Left knee osteoarthrosis. POSTOPERATIVE DIAGNOSIS: Left knee osteoarthrosis. OPERATION: Left total knee arthroplasty. ANESTHESIA: Spinal with sedation. ESTIMATED BLOOD LOSS: 100 mL. TOURNIQUET: Tourniquet time was 40 minutes at 250 mmHg. COMPLICATIONS: None apparent. DRAINS: None. DISPOSITION: Post-Anesthesia Care Unit. INDICATIONS: Pina is a 48-year-old female with longstanding history of left knee pain. History and physical examination are consistent with advanced left knee osteoarthrosis. She has been through significant nonoperative management up to this point. Further treatment options were discussed, and she decided to go forward with left total knee arthroplasty. The risks of the procedure were discussed with her in detail. These risks include but are not limited to risk of infection, nerve damage, bleeding, pain, and a small risk of deep vein thrombosis which could lead to fatal pulmonary embolism. There is also a risk of loosening of the implant which could require revision operation. The patient understands these risks. All of her questions were answered to her satisfaction. Appropriate informed consent was obtained. DESCRIPTION OF THE PROCEDURE: The patient was identified in the preoperative holding area. Surgical site was marked by both the patient and myself. She was given 2 grams of Ancef IV for prophylactic purposes. She was then transferred to the operative suite. She was placed supine on the operating room table. A spinal anesthetic was then administered and dosed per the anesthesia department without apparent complication. Examination under anesthesia was then performed. The patient was 2 to 3 degrees shy of full extension. She had 100 degrees of flexion, and the medial collateral ligament, lateral collateral ligament and posterior cruciate ligaments were stable. Tourniquet was then placed high on the left upper thigh, well padded in preparation for surgery. The patient's left lower extremity was then prepped and draped in the usual sterile fashion. A standard surgical pause was then undertaken to ensure that we were operating on the correct site and that appropriate preoperative antibiotics had been given. All staff in the room were in agreement and we proceeded. The outlines of the patella were marked with a surgical pen. A planned 12 cm vertical incision centered over the patella was marked with a surgical pen. The leg was then exsanguinated with an Esmarch dressing. The knee was then flexed and the tourniquet was inflated to 250 mmHg. The total tourniquet time for the procedure was 40 minutes. Incision was then made with a 10-blade scalpel. Dissection was carried down sharply to the overlying fascia. Great care was taken to minimize the skin flaps. The knee was then exposed using a standard medial parapatellar approach. A small cuff of quadriceps tendon was then left for suturing. She was in quite a bit of varus preoperatively. A standard medial release was then made. Superficial medial collateral ligament was dissected off of the bone and around to the posterior aspect of the proximal tibia. The medial meniscus was then excised as well. The lateral meniscus was also released anteriorly. The leg was then externally rotated. The patella was everted. The knee was flexed. The retractors were then placed to protect the collateral ligaments. I then proceeded to remove the infrapatellar fat pad. This was excised sharply tangentially with the fibers of the patellar tendon. I then proceeded to remove peripheral osteophytes. This was done with a rongeur. I then proceeded with the distal femoral resection. She did have near-full extension. A planned 9 mm resection was then done. The femoral canal was then entered in the midline of the femur approximately 10 mm anterior to the origin of the posterior cruciate ligament. The linda was then advanced down to the center of the femur and placed intramedullary. Based on the preoperative radiographs, the angle between the anatomic and mechanical axis of the femur was approximately 4-5 degrees. The valgus angle of the distal femoral cutting guide was then set at 4 degrees for the left knee. The distal femoral cutting guide was then advanced over the intramedullary linda. This was seated firmly against the femur. I then, as mentioned, planned to take 9 mm off the distal femur. The cutting block was then secured onto the femur with pins. The jig was removed and the distal femoral cut was made through the slot of the block. The pins were then removed and the distal femoral cutting block was removed. The accuracy of the distal femoral cuts was checked with 2 flat bars. I then proceeded with femoral sizing. The posterior referencing sizing guide was held firmly against the resected distal surface of the femur. The posterior condyles were resting on the posterior plane of the guide. The sizing stylus was then placed onto the anterior femur. The size was measured as a size 7. I then assessed for femoral rotation. The plan was for 3 degrees of external rotation. Three degrees of external rotation was placed onto the jig. These holes were then marked. I then confirmed the rotation by 3 separate methods. This was done using the epicondylar axis as well as Whitesides line and posterior referencing. It was deemed that the external rotation was proper. I then went forward with placing the femoral cutting block. This was placed over the previously placed pin holes. The Diego wing was then placed onto the anterior slots to ensure that we would not notch the anterior femur with the anterior femoral cut. I then proceeded with the anterior femoral cut. This was flush with the anterior cortex of the femur. Posterior cuts were then made followed by the anterior chamfer cut, and then the posterior chamfer cut. The cutting block was then removed. Throughout the resection, the collateral ligaments were protected with retractors. I then placed a trial size 7 femur. It was slightly wide medial to lateral, but the narrow fit nicely and it also fit flush with the distal end of the femur. The drill holes were then made. I then proceeded with the tibial cut. I planned for a cruciate-retaining knee. The guide was placed and set for varus, valgus and for slope. The height was set for an approximate 2 mm resection from the medial tibial plateau, which was the lower side. I was happy with the alignment and the amount of resection. The cutting block was then pinned to the proximal tibia. The alignment linda was removed and the proximal tibia was resected with a reciprocating saw. Again this was done with retractors protecting the collateral ligaments as well as the posterior cruciate ligament. I then proceeded to evaluate the flexion and extension gaps. A 10 mm block was then placed. The flexion and extension gaps were equal. I then proceeded with resection of the posterior osteophytes. She had very minimal posterior osteophytes. This was done using a curved osteotome. This resected the posterior osteophytes, and posterior capsule stripping was done off the posterior aspect of the femur at this time. The osteophytes were then removed. I then proceeded with resection of the patella. The thickness of the patella was measured using the caliper. The thickness was 22 mm. Thickness of the anticipated patellar dome was taken into account. Resection was then performed and confirmed to be equal in 4 quadrants using a caliper. Approximately 14 mm of bone remained after resection. A 28 x 8 standard patellar trial was then placed. The holes were drilled and the trial was then placed. I then proceeded with sizing the tibial plate. A size D tibial plate fit very nicely. I then placed the trial femur and the tibial tray and the patellar button. A 10 mm trial tibial insert was also placed. The components fit very nicely. She had full extension and flexion. The extension and flexion gaps were equal and stable to both varus and valgus stress. The patella tracked appropriately. The tibial tray rotation was then marked with a Bovie. This was externally rotated properly. I then proceeded with tibial preparation. I first drilled the femoral holes and removed the femoral component. The tibial tray was then set for proper external rotation as well as mediolateral placement onto the tibia. It was then pinned into place. I then proceeded with punching the keel. I then decided to proceed with cementing of all of our components. The knee was thoroughly irrigated with sterile saline solution via pulse lavage. The lateral geniculate artery was identified and cauterized. All blood was removed from the bone of the tibia, femur and patella with pulse lavage. I then proceeded with cementing. Two packs of antibiotic bone cement were prepared on the back table by the surgical lead. I then proceeded with cementing of the tibia first. The cement was impacted into the keel as well as deeply seated into the bone. A second coat of cement was then placed. The tibia was then impacted into place. Excess cement was removed with Peter's and jokers. I then proceeded with cementing of the femoral component. The femoral component was also cemented using standard technique. Excess cement was removed. A 10 mm insert was then placed into the knee. It was brought into full extension with a constant axial load placed until the cement had hardened. The patellar component was then cemented. This was held firmly with a compressive device until the cement had dried. When the cement had dried, the knee was taken out of extension. All excess cement was removed from around the prosthesis. I then trialed with a 10 mm insert and proceeding to trial with up to a 14 mm insert. The flexion and extension gaps felt much better. The knee was stable. It came into full extension. I decided to go forward with a 14 mm cross-linked cruciate-retaining tibial insert. Polyethylene was then placed onto the tibial tray and locked into place. The knee was then reduced. The knee was again further irrigated with sterile saline solution with antibiotic added. The tourniquet was then deflated. The total tourniquet time for the procedure was 40 minutes at 250 mmHg. Final components were a Lily Persona size 7 narrow cruciate-retaining femoral component, a size D tibial tray, a 14 mm medial- congruent cruciate-retaining polyethylene insert, and a 29 x 8 mm patella. I then proceeded with closure. Again the knee was thoroughly irrigated. The quadriceps tendon and the medial retinaculum were reapproximated with #2 Ethibond suture. The extensor mechanism was then closed with a running #2 Quill suture. Subcutaneous tissues were then closed with 2-0 Vicryl interrupted suture. The skin was closed with a running 3-0 Quill suture. Dermabond was applied to the incision. All sponge and needle counts were deemed correct prior to closure. The patient tolerated the procedure without apparent complication. She was transferred to the recovery room in stable condition. MMODL / IJN: [id number] /
[2019-10-03] MEDS: ASPIRIN 81 MG PO SCH (19:31)
[2019-10-03] MEDS: SENNOSIDES-DOCUSATE SODIUM 1 EACH TAB PO SCH (19:31)
[2019-10-03] MEDS: SYMBICORT 80-4.5 MCG INHALER INHALATION SCH (19:36)
[2019-10-03] MEDS: HYDROcodone/APAP 10-325MG 1 EACH TAB PO PRN (19:43)
[2019-10-04] MEDS: HYDROcodone/APAP 10-325MG 1 EACH TAB PO PRN ×5 (01:07→22:14)
[2019-10-04] MEDS: HYDROmorphone 0.5 MG/0.5 ML SYRINGE IVP PRN ×3 (02:17→19:50)
[2019-10-04] MEDS: LEVOTHYROXINE 75 MCG TAB PO SCH (05:27)
--- NOTE | 2019-10-04 06:58 | P.PN ---
Progress Note - Text Progress Note Date: 10/04/19 Patient complains of severe pain in the thigh and behind the knee. No pain at the incision. Moderate relief with breakthrough dilaudid. Catheter site clean and dry A/P POD#1 s/p L TKA - consider adding valium for muscle spasm component - continue adductor catheter
[2019-10-04] MEDS: SERTRALINE 100 MG TAB PO SCH (07:29)
[2019-10-04] MEDS: PANTOPRAZOLE 40 MG TABLET PO SCH (07:29)
[2019-10-04] MEDS: ASPIRIN 81 MG PO SCH ×2 (07:30→21:58)
[2019-10-04] MEDS: LACTATED RINGERS 1,000 ML IV SCH ×3 (07:31→19:51)
[2019-10-04] MEDS: HYDROmorphone 1 MG/ML 1 ML SYRINGE IVP PRN ×4 (08:27→22:11)
[2019-10-04] MEDS: SYMBICORT 80-4.5 MCG INHALER INHALATION SCH ×2 (08:33→21:35)
[2019-10-04 08:49] LABS: Basophils % (A) 0 %; Eosinophils # (A) 0.1 k/uL (0-0.7); Eosinophils % (A) 1 %; HCT 30.3 % (34.0-46.0); Hypochromasia Slight; Lymphocytes % (A) 19 %; MCHC 31.4 g/dL (31.0-37.0); MCV 82.9 fL (80.0-100.0); Mean Platelet Volume 7.2; Monocytes # (A) 0.4 k/uL (0-1.0); Monocytes % (A) 8 %; Neutrophils # (A) 3.6 k/uL (1.3-7.7); Neutrophils % (A) 71 %; Platelet Count 199 k/uL (150-450); RBC 3.66 m/uL (3.80-5.40); RDW 15.9 % (11.5-15.5); WBC 5.1 k/uL (3.8-10.6)
[2019-10-04 08:52] LABS: HGB 9.5 gm/dL (11.4-16.0)
[2019-10-04] MEDS: diazePAM 5 MG TAB PO PRN ×2 (10:59→17:57)
[2019-10-04] MEDS ORDERED: HYDROcodone/APAP 10-325MG 1 EACH TAB PO PRN (11:19)
[2019-10-04] MEDS: MULTIVITAMINS, THERA 1 EACH TAB PO SCH (11:21)
--- NOTE | 2019-10-04 11:23 | P.PN ---
Subjective Progress Note Date: 10/04/19 Principal diagnosis: Left TKA Patient is seen at bedside this morning. She is postop day #1 from left total knee arthroplasty. She has pain at the surgical site as expected but denies any new complaints. She denies numbness, tingling or calf pain. Review of systems is negative for fever, chills, chest pain, shortness of breath or other Objective - Vital Signs Vital signs: Vital Signs Temp 98.5 F 10/04/19 07:00 Pulse 65 10/04/19 07:00 Resp 16 10/04/19 07:40 BP 104/63 10/04/19 11:19 Pulse Ox 94 L 10/04/19 11:19 Intake & Output 10/03/19 10/04/19 10/04/19 18:59 06:59 18:59 Intake Total 951 200 Output Total 100 Balance 851 200 Weight 85.5 kg Intake: IV 951 Oral 200 Output: Estimated Blood Loss 100 Other: # Voids 1 2 - Exam Inspection reveals a benign surgical wound. There is no active bleeding or drainage. Neurovascular status is intact throughout the lower extremity with motor and sensation fully intact. Calf is soft and nontender. 2+ dorsalis pedis pulse and less than 2 second cap refill is present. - Constitutional General appearance: Present: no acute distress - Labs CBC & Chem 7: 10/04/19 08:02 Labs: Abnormal Lab Results - Last 24 Hours (Table) 10/04/19 Range/Units 08:02 RBC 3.66 L (3.80-5.40) m/uL Hgb 9.5 L D (11.4-16.0) gm/dL Hct 30.3 L (34.0-46.0) % RDW 15.9 H (11.5-15.5) % Assessment and Plan (1) S/P total knee arthroplasty Narrative/Plan: She will continue with routine postop orthopedic protocol including pain management, wound care, PT, DVT prophylaxis and medical management. Will work on improving pain control today. Expect that he will transfer to home tomorrow Current Visit: Yes Status: Acute Priority: Medium Code(s): Z96.659 - PRESENCE OF UNSPECIFIED ARTIFICIAL KNEE JOINT SNOMED Code(s): 4331987735919 Time with Patient: Less than 30
--- NOTE | 2019-10-04 13:25 | P.PN ---
Subjective Patient pain in the left knee improved after she was started on Valium. Constitutional: Denied any fatigue denied any fever. Cardio vascular: denied any chest pain, palpitations Gastrointestinal denied any nausea vomiting Pulmonary: Denied any shortness of breath cough Neurologic denied any new focal deficits All inpatient medications were reviewed and appropriate changes in these medications as dictated in the interval history and assessment and plan. Objective - Vital Signs Vital signs: Vital Signs Temp 98.5 F 10/04/19 07:00 Pulse 65 10/04/19 07:00 Resp 16 10/04/19 07:40 BP 104/63 10/04/19 11:19 Pulse Ox 94 L 10/04/19 11:19 Intake & Output 10/03/19 10/04/19 10/04/19 18:59 06:59 18:59 Intake Total 951 200 Output Total 100 Balance 851 200 Weight 85.5 kg Intake: IV 951 Oral 200 Output: Estimated Blood Loss 100 Other: # Voids 1 2 - Exam PHYSICAL EXAMINATION: GENERAL: The patient is alert and oriented x3, not in any acute distress. Well developed, well nourished. HEENT: Pupils are round and equally reacting to light. EOMI. No scleral icterus. No conjunctival pallor. Normocephalic, atraumatic. No pharyngeal erythema. No thyromegaly. CARDIOVASCULAR: S1 and S2 present. No murmurs, rubs, or gallops. PULMONARY: Chest is clear to auscultation, no wheezing or crackles. ABDOMEN: Soft, nontender, nondistended, normoactive bowel sounds. No palpable organomegaly. MUSCULOSKELETAL: No joint swelling or deformity. EXTREMITIES: No cyanosis, clubbing, or pedal edema. Left knee wrapped with Lawson bandages NEUROLOGICAL: Gross neurological examination did not reveal any focal deficits. SKIN: No rashes. - Labs CBC & Chem 7: 10/04/19 08:02 Labs: Abnormal Lab Results - Last 24 Hours (Table) 10/04/19 Range/Units 08:02 RBC 3.66 L (3.80-5.40) m/uL Hgb 9.5 L D (11.4-16.0) gm/dL Hct 30.3 L (34.0-46.0) % RDW 15.9 H (11.5-15.5) % Assessment and Plan Plan: -Hypertension to avoid perioperative hypotension on hold off on losartan and hydrochlorothiazide. Patient blood pressure is low normal today -Left knee arthroplasty postoperatively patient is an 81 mg aspirin twice a day for DVT prophylaxis pain management as per primary service -Esophageal reflux disease -Osteoarthritis -Hypothyroidism -Fibromyalgia For above-mentioned chronic visual problems patient will be resumed on appropriate home medications
[2019-10-04] MEDS: diphenhydrAMINE 25 MG CAP PO PRN (17:58)
[2019-10-04] MEDS ORDERED: KETOROLAC 30 MG/ML 1 ML VIAL IVP STA (21:07)
[2019-10-04] MEDS ORDERED: KETOROLAC 30 MG/ML 1 ML VIAL IVP PRN (21:50)
[2019-10-04] MEDS: SENNOSIDES-DOCUSATE SODIUM 1 EACH TAB PO SCH (21:58)
--- NOTE | 2019-10-04 22:49 | US ---
EXAMINATION TYPE: US venous doppler duplex LE LT DATE OF EXAM: 10/04/2019 10:32 PM COMPARISON: NONE CLINICAL HISTORY: Suspected DVT and uncontrolled pain. Left leg pain post total knee. SIDE PERFORMED: Left TECHNIQUE: The lower extremity deep venous system is examined utilizing real time linear array sonog ronaldo with graded compression, doppler sonography and color-flow sonography. VESSELS IMAGED: External Iliac Vein (EIV) Common Femoral Vein Deep Femoral Vein Greater Saphenous Vein * Femoral Vein Popliteal Vein Proximal Calf Veins (* superficial vessels) Left Leg: Negative for DVT Complex fluid collection medial left pop fossa measures 5.7 x 1.4 x 3.9 cm. Nodes noted left groin. IMPRESSION: No evidence of left leg deep vein thrombosis. Popliteal cyst is noted.
[2019-10-05] MEDS: HYDROmorphone 0.5 MG/0.5 ML SYRINGE IVP PRN ×2 (00:31→02:41)
[2019-10-05] MEDS: LACTATED RINGERS 1,000 ML IV SCH ×3 (02:41→14:59)
[2019-10-05] MEDS: HYDROmorphone 1 MG/ML 1 ML SYRINGE IVP PRN ×5 (05:53→20:05)
[2019-10-05] MEDS: LEVOTHYROXINE 75 MCG TAB PO SCH (05:53)
[2019-10-05] MEDS: diphenhydrAMINE 25 MG CAP PO PRN (05:53)
[2019-10-05] MEDS: SYMBICORT 80-4.5 MCG INHALER INHALATION SCH ×2 (07:24→20:54)
[2019-10-05] MEDS: SERTRALINE 100 MG TAB PO SCH (07:41)
[2019-10-05] MEDS: MULTIVITAMINS, THERA 1 EACH TAB PO SCH (07:41)
[2019-10-05] MEDS: HYDROcodone/APAP 10-325MG 1 EACH TAB PO PRN ×3 (07:41→18:15)
[2019-10-05] MEDS: ASPIRIN 81 MG PO SCH ×2 (07:41→20:44)
[2019-10-05] MEDS: PANTOPRAZOLE 40 MG TABLET PO SCH (07:41)
--- NOTE | 2019-10-05 09:53 | P.PN ---
Subjective Progress Note Date: 10/05/19 Principal diagnosis: Postop total left knee arthroplasty. This is a 48-year-old female who is status post total left knee arthroplasty on 10/03/2019. She continues to have pain control issues. She states that her pain is not well controlled and states that she had a difficult night last night secondary to pain. Nursing staff states that she has not been up much with therapy. Vital signs are stable. Objective - Vital Signs Vital signs: Vital Signs Temp 98.7 F 10/05/19 07:00 Pulse 70 10/05/19 07:00 Resp 17 10/05/19 07:00 BP 124/81 10/05/19 07:00 Pulse Ox 94 L 10/05/19 07:00 Intake & Output 10/04/19 10/05/19 10/05/19 18:59 06:59 18:59 Intake Total 400 200 Output Total 1000 Balance 400 -1000 200 Intake: Oral 400 200 Output: Urine 1000 Other: Voiding Method Bedpan # Voids 2 1 - Exam This is a pleasant 48-year-old female in no acute distress. She is alert and oriented 3. Exam of the left lower extremity reveals that her incision looks good. There is no erythema or ecchymosis. There is no active drainage noted. She has full foot and ankle motion without difficulty or pain. Neurovascular status to the lower extremity is intact. - Labs CBC & Chem 7: 10/04/19 08:02 Assessment and Plan (1) Status post total left knee replacement Current Visit: Yes Status: Acute Code(s): Z96.652 - PRESENCE OF LEFT ARTIFICIAL KNEE JOINT SNOMED Code(s): 9870855849673 Plan: The clinical findings are discussed the patient. I have added Mobic 15 mg daily. She is to continue on the [place] 10 and Valium. I've encouraged her to move a little more today and get up with physical therapy. We're planning discharge to home tomorrow if she has better pain management.
[2019-10-05] MEDS: diazePAM 5 MG TAB PO PRN ×2 (09:54→22:28)
[2019-10-05] MEDS: MELOXICAM 7.5 MG TAB PO SCH (09:54)
[2019-10-05] MEDS ORDERED: diphenhydrAMINE 25 MG CAP PO PRN (11:28)
--- NOTE | 2019-10-05 16:46 | P.PN ---
Subjective Patient pain in the left knee improved after she was started on Valium. 10/05/2019 Patient blood pressure is well controlled patient is still complaining of pain. Constitutional: Denied any fatigue denied any fever. Cardio vascular: denied any chest pain, palpitations Gastrointestinal denied any nausea vomiting Pulmonary: Denied any shortness of breath cough Neurologic denied any new focal deficits All inpatient medications were reviewed and appropriate changes in these medications as dictated in the interval history and assessment and plan. Objective - Vital Signs Vital signs: Vital Signs Temp 98.6 F 10/05/19 15:00 Pulse 70 10/05/19 15:00 Resp 16 10/05/19 15:00 BP 123/79 10/05/19 15:00 Pulse Ox 92 L 10/05/19 15:00 Intake & Output 10/04/19 10/05/19 10/05/19 18:59 06:59 18:59 Intake Total 400 400 Output Total 1000 Balance 400 -1000 400 Intake: Oral 400 400 Output: Urine 1000 Other: Voiding Method Bedpan # Voids 2 1 3 - Exam PHYSICAL EXAMINATION: GENERAL: The patient is alert and oriented x3, not in any acute distress. Well developed, well nourished. HEENT: Pupils are round and equally reacting to light. EOMI. No scleral icterus. No conjunctival pallor. Normocephalic, atraumatic. No pharyngeal erythema. No thyromegaly. CARDIOVASCULAR: S1 and S2 present. No murmurs, rubs, or gallops. PULMONARY: Chest is clear to auscultation, no wheezing or crackles. ABDOMEN: Soft, nontender, nondistended, normoactive bowel sounds. No palpable organomegaly. MUSCULOSKELETAL: No joint swelling or deformity. EXTREMITIES: No cyanosis, clubbing, or pedal edema. Left knee wrapped with Lawson bandages NEUROLOGICAL: Gross neurological examination did not reveal any focal deficits. SKIN: No rashes. - Labs CBC & Chem 7: 10/04/19 08:02 Assessment and Plan Plan: -Hypertension to avoid perioperative hypotension on hold off on losartan and hydrochlorothiazide. Patient blood pressure is low normal today -Left knee arthroplasty postoperatively patient is an 81 mg aspirin twice a day for DVT prophylaxis pain management as per primary service -Esophageal reflux disease -Osteoarthritis -Hypothyroidism -Fibromyalgia For above-mentioned chronic visual problems patient will be resumed on appropriate home medications
[2019-10-05] MEDS: SENNOSIDES-DOCUSATE SODIUM 1 EACH TAB PO SCH (20:44)
[2019-10-06] MEDS: LACTATED RINGERS 1,000 ML IV SCH ×3 (02:36→10:55)
[2019-10-06] MEDS: HYDROmorphone 1 MG/ML 1 ML SYRINGE IVP PRN ×2 (02:49→07:28)
[2019-10-06] MEDS: LEVOTHYROXINE 75 MCG TAB PO SCH (05:32)
[2019-10-06] MEDS: HYDROcodone/APAP 10-325MG 1 EACH TAB PO PRN ×2 (05:36→11:12)
[2019-10-06] MEDS: MULTIVITAMINS, THERA 1 EACH TAB PO SCH (07:29)
[2019-10-06] MEDS: MELOXICAM 7.5 MG TAB PO SCH (07:29)
[2019-10-06] MEDS: SERTRALINE 100 MG TAB PO SCH (07:29)
[2019-10-06] MEDS: ASPIRIN 81 MG PO SCH (07:29)
[2019-10-06] MEDS: PANTOPRAZOLE 40 MG TABLET PO SCH (07:29)
[2019-10-06 08:28] VITALS: BP 123/79; PULSE 71; RESP 16; TEMP 98.6
[2019-10-06] MEDS: SYMBICORT 80-4.5 MCG INHALER INHALATION SCH (09:27)
[2019-10-06 10:49] LABS: Basophils % (A) 0 %; Eosinophils # (A) 0.2 k/uL (0-0.7); Eosinophils % (A) 4 %; HCT 27.7 % (34.0-46.0); HGB 8.7 gm/dL (11.4-16.0); Hypochromasia Slight; Lymphocytes # (A) 0.8 k/uL (1.0-4.8); Lymphocytes % (A) 16 %; MCH 25.9 pg (25.0-35.0); MCHC 31.4 g/dL (31.0-37.0); MCV 82.4 fL (80.0-100.0); Mean Platelet Volume 7.5; Monocytes # (A) 0.3 k/uL (0-1.0); Monocytes % (A) 6 %; Neutrophils # (A) 3.5 k/uL (1.3-7.7); Neutrophils % (A) 72 %; Platelet Count 193 k/uL (150-450); RBC 3.36 m/uL (3.80-5.40); RDW 15.6 % (11.5-15.5); WBC 4.9 k/uL (3.8-10.6)
--- NOTE | 2019-10-06 11:45 | P.DS ---
Providers Date of admission: 10/04/19 02:10 Expected date of discharge: 10/06/19 Attending physician: Danilo He Consults: 10/03/19 11:08 Consult Physician Routine Consulting Provider: Gayatri Thomas Consult Reason/Comments: post op medical management Do you want consulting provider notified?: Yes Primary care physician: Stefanie Simons NPC - Discharge Diagnosis(es) (1) Status post total left knee replacement Current Visit: Yes Status: Acute Hospital Course: This is a 48-year-old female who was last seen with complaint of continued left knee pain. The patient has a known history of degenerative arthritis of the left knee and presents to discuss surgical options. After discussion and consideration the patient elects to proceed with total left knee arthroplasty. The patient is seen preoperatively by her primary care physician and cleared for surgery. The patient is admitted to [facility] for total left knee arthroplasty. The procedures performed without complication or sequelae. He is doing well postoperatively. Vital signs are stable at discharge. Labs are stable at discharge. the patient is ambulating well with walker with minimal assistance. The patient is discharged to home on postop day #3 pending medical clearance. Please see orders and refer to the med rec for accurate list of medications. Patient Condition at Discharge: Good Plan - Discharge Summary Discharge Rx Participant: Yes New Discharge Prescriptions: New Aspirin [Adult Low Dose Aspirin EC] 81 mg PO BID #60 tablet. HYDROcodone/APAP 10-325MG [[place] 10-325] 1 tab PO Q4HR PRN #42 tab PRN Reason: Pain Metaxalone [Skelaxin] 800 mg PO TID PRN #21 tab PRN Reason: Spasms Meloxicam 15 mg PO DAILY #30 tablet Continue Levothyroxine Sodium [Synthroid] 150 mcg PO DAILY Cetirizine HCl [Zyrtec] 10 mg PO DAILY Sertraline HCl [Zoloft] 150 mg PO DAILY Fluticasone/Salmeterol [Advair 100-50 Diskus] 1 inhalation PO RT-Q12H Albuterol Inhaler (Mhu) [Ventolin Hfa Inhaler (Mhu)] 1 - 2 puff INHALATION RT-Q6H PRN PRN Reason: Shortness Of Breath Omeprazole 40 mg PO DAILY #30 cap Acetaminophen Tab [Tylenol] 500 mg PO Q6HR PRN tab PRN Reason: Fever And/ Or Pain Trazodone(Unknown Dose) 1 tab PO HS [place](Unknown Dose) 1 tab PO Q6H PRN PRN Reason: Pain Losartan-Hctz 50-12.5 mg [Hyzaar 50-12.5] 1 tab PO DAILY #0 Discharge Medication List Levothyroxine Sodium [Synthroid] 150 mcg PO DAILY 05/16/14 [History] Cetirizine HCl [Zyrtec] 10 mg PO DAILY 08/08/17 [History] Albuterol Inhaler (Mhu) [Ventolin Hfa Inhaler (Mhu)] 1 - 2 puff INHALATION RT- Q6H PRN 08/25/18 [History] Fluticasone/Salmeterol [Advair 100-50 Diskus] 1 inhalation PO RT-Q12H 08/25/18 [History] Sertraline HCl [Zoloft] 150 mg PO DAILY 08/25/18 [History] Omeprazole 40 mg PO DAILY #30 cap 08/27/18 [Rx] Acetaminophen Tab [Tylenol] 500 mg PO Q6HR PRN tab 08/28/18 [Rx] [place](Unknown Dose) 1 tab PO Q6H PRN 10/01/19 [History] Trazodone(Unknown Dose) 1 tab PO HS 10/01/19 [History] Aspirin [Adult Low Dose Aspirin EC] 81 mg PO BID #60 tablet. 10/04/19 [Rx] HYDROcodone/APAP 10-325MG [[place] 10-325] 1 tab PO Q4HR PRN #42 tab 10/04/19 [Rx] Metaxalone [Skelaxin] 800 mg PO TID PRN #21 tab 10/04/19 [Rx] Losartan-Hctz 50-12.5 mg [Hyzaar 50-12.5] 1 tab PO DAILY #0 10/06/19 [Rx] Meloxicam 15 mg PO DAILY #30 tablet 10/06/19 [Rx] Follow up Appointment(s)/Referral(s): [facility], [NON-STAFF] - As Needed Danilo He MD [STAFF PHYSICIAN] - 10/15/19 10:05 am Patient Instructions/Handouts: *Surgery [facility] - Scopalamine Patch Instructions Activity/Diet/Wound Care/Special Instructions: Keep wound clean and dry Take meds as directed Follow-up with Dr. He in office Weight bear as tolerated May shower in 3 days if no bleeding Discharge Disposition: HOME WITH HOME HEALTH SERVICES
--- NOTE | 2019-10-06 12:41 | P.PN ---
Subjective Patient pain in the left knee improved after she was started on Valium. 10/05/2019 Patient blood pressure is well controlled patient is still complaining of pain. 10/06/2019 Patient pain is better patient is being discharged today patient blood pressures still within normal limits because of which asked her to hold off her aunt on her antidepressant medications which we are not giving her since her admission and asked her to check the blood pressure at home and follow with PCP who can resume the medication if needed at that time Constitutional: Denied any fatigue denied any fever. Cardio vascular: denied any chest pain, palpitations Gastrointestinal denied any nausea vomiting Pulmonary: Denied any shortness of breath cough Neurologic denied any new focal deficits All inpatient medications were reviewed and appropriate changes in these medications as dictated in the interval history and assessment and plan. Objective - Vital Signs Vital signs: Vital Signs Temp 98.6 F 10/06/19 07:00 Pulse 71 10/06/19 07:00 Resp 16 10/06/19 07:00 BP 123/79 10/06/19 07:00 Pulse Ox 93 L 10/06/19 07:00 Intake & Output 10/05/19 10/06/19 10/06/19 18:59 06:59 18:59 Intake Total 400 200 Balance 400 200 Intake: Oral 400 200 Other: Voiding Method Toilet # Voids 3 1 - Exam PHYSICAL EXAMINATION: GENERAL: The patient is alert and oriented x3, not in any acute distress. Well developed, well nourished. HEENT: Pupils are round and equally reacting to light. EOMI. No scleral icterus. No conjunctival pallor. Normocephalic, atraumatic. No pharyngeal erythema. No thyromegaly. CARDIOVASCULAR: S1 and S2 present. No murmurs, rubs, or gallops. PULMONARY: Chest is clear to auscultation, no wheezing or crackles. ABDOMEN: Soft, nontender, nondistended, normoactive bowel sounds. No palpable organomegaly. MUSCULOSKELETAL: No joint swelling or deformity. EXTREMITIES: No cyanosis, clubbing, or pedal edema. Left knee wrapped with Lawson bandages NEUROLOGICAL: Gross neurological examination did not reveal any focal deficits. SKIN: No rashes. - Labs CBC & Chem 7: 10/06/19 09:18 Labs: Abnormal Lab Results - Last 24 Hours (Table) 10/06/19 Range/Units 09:18 RBC 3.36 L (3.80-5.40) m/uL Hgb 8.7 L (11.4-16.0) gm/dL Hct 27.7 L (34.0-46.0) % RDW 15.6 H (11.5-15.5) % Lymphocytes # 0.8 L (1.0-4.8) k/uL Assessment and Plan Plan: -Hypertension hold off on losartan and hydrochlorothiazide. Patient blood pressure is low normal today further management as mentioned above -Left knee arthroplasty postoperatively patient is an 81 mg aspirin twice a day for DVT prophylaxis pain management as per primary service -Esophageal reflux disease -Osteoarthritis -Hypothyroidism -Fibromyalgia For above-mentioned chronic visual problems patient will be resumed on appropriate home medications
== END 2019-10-06 12:57 | disposition home health service (06) ==
LOC: OR 07:41 → 4SSUR 11:02 → OR 10-04 02:10 → 4SSUR 10-04 02:10
PROVIDERS: ADMIT Orthopaedic Surgery Sports Medicine; ATTEND Orthopaedic Surgery Sports Medicine
DX: M17.12 Unilateral primary osteoarthritis, left knee (principal); M25.762 Osteophyte, left knee; M62.838 Other muscle spasm; M71.22 Synovial cyst of popliteal space [Baker], left knee; E89.0 Postprocedural hypothyroidism; I10 Essential (primary) hypertension; F41.8 Other specified anxiety disorders; L40.9 Psoriasis, unspecified; M79.7 Fibromyalgia; K21.9 Gastro-esophageal reflux disease without esophagitis; J45.909 Unspecified asthma, uncomplicated; M51.9 Unspecified thoracic, thoracolumbar and lumbosacral intervertebral disc disorder; K76.0 Fatty (change of) liver, not elsewhere classified; E78.5 Hyperlipidemia, unspecified; G47.33 Obstructive sleep apnea (adult) (pediatric); Z87.19 Personal history of other diseases of the digestive system; Z79.899 Other long term (current) drug therapy; Z79.890 Hormone replacement therapy; Z79.51 Long term (current) use of inhaled steroids; Z79.891 Long term (current) use of opiate analgesic; Z97.3 Presence of spectacles and contact lenses; Z87.11 Personal history of peptic ulcer disease; Z98.890 Other specified postprocedural states; Z88.0 Allergy status to penicillin; Z87.39 Personal history of other diseases of the musculoskeletal system and connective tissue; Z91.81 History of falling; Z87.820 Personal history of traumatic brain injury; Z98.84 Bariatric surgery status; Z90.49 Acquired absence of other specified parts of digestive tract; Z90.710 Acquired absence of both cervix and uterus; Z98.51 Tubal ligation status; Z87.81 Personal history of (healed) traumatic fracture; Z91.89 Other specified personal risk factors, not elsewhere classified; Z87.898 Personal history of other specified conditions; Z84.89 Family history of other specified conditions; Z82.49 Family history of ischemic heart disease and other diseases of the circulatory system; Z83.2 Family history of diseases of the blood and blood-forming organs and certain disorders involving the immune mechanism; Z80.3 Family history of malignant neoplasm of breast; Z80.9 Family history of malignant neoplasm, unspecified; Z82.3 Family history of stroke
CPT/HCPCS: 27447; 94640 ×4; 97116 ×2; 97110; 97161; 64448; 76942; 85025 ×2; 88300; 73560; 93971; G0378 ×3; C1776; C1713; J2250; J0171; J1100; J0690 ×3; J2405; J1885 ×3; J1170 ×6; J2795 ×2; J2704; J0735

== ENCOUNTER 2019-10-08 20:54 | Observation (INO) | payer OTHER ==
[2019-10-08] MEDS ORDERED: HYDROmorphone 1 MG/ML 1 ML SYRINGE IVP STA (21:25)
[2019-10-08] MEDS ORDERED: SODIUM CHLORIDE 0.9% 500 ML 500 ML IV ONE (21:29)
[2019-10-08 21:40] LABS: Basophils % (A) 0 %; Eosinophils # (A) 0.3 k/uL (0-0.7); Eosinophils % (A) 5 %; HCT 30.5 % (34.0-46.0); HGB 9.7 gm/dL (11.4-16.0); Hypochromasia Slight; Lymphocytes # (A) 1.1 k/uL (1.0-4.8); Lymphocytes % (A) 18 %; MCH 26.1 pg (25.0-35.0); MCHC 31.8 g/dL (31.0-37.0); MCV 82.2 fL (80.0-100.0); Mean Platelet Volume 6.9; Monocytes # (A) 0.4 k/uL (0-1.0); Monocytes % (A) 6 %; Neutrophils # (A) 4.1 k/uL (1.3-7.7); Neutrophils % (A) 69 %; Platelet Count 340 k/uL (150-450); RBC 3.71 m/uL (3.80-5.40); RDW 15.3 % (11.5-15.5)
[2019-10-08 21:49] LABS: ALT 11 U/L (4-34); AST 26 U/L (14-36); African American GFR (CKD) >90 (>60 ml/min/1.73 sqM); Albumin 3.7 g/dL (3.5-5.0); Alkaline Phosphatase 55 U/L (38-126); Anion Gap 6 mmol/L; Blood Urea Nitrogen 11 mg/dL (7-17); Calcium 8.8 mg/dL (8.4-10.2); Carbon Dioxide 26 mmol/L (22-30); Chloride 104 mmol/L (98-107); Glucose 80 mg/dL (74-99); Non-African American GFR(CKD) >90 (>60 ml/min/1.73 sqM); Sodium 136 mmol/L (137-145); Total Bilirubin 0.7 mg/dL (0.2-1.3); Total Protein 6.5 g/dL (6.3-8.2)
--- NOTE | 2019-10-08 22:31 | US ---
EXAMINATION TYPE: US venous doppler duplex LE DATE OF EXAM: 10/08/2019 10:09 PM COMPARISON: US CLINICAL HISTORY: pain. Pain. Patient had surgery 10/03/19. Left inner posterior-medial thigh bruising and swelling. SIDE PERFORMED: Left TECHNIQUE: The lower extremity deep venous system is examined utilizing real time linear array sonog ronaldo with graded compression, doppler sonography and color-flow sonography. VESSELS IMAGED: External Iliac Vein (EIV) Common Femoral Vein Deep Femoral Vein Greater Saphenous Vein * Femoral Vein Popliteal Vein Small Saphenous Vein * Proximal Calf Veins (* superficial vessels) Left Leg: No evidence of DVT in veins imaged at this time from prox calf veins to EIV. Two mixed/com plex areas seen medial popliteal area. Superior area measures: 5.3 x 4.1 x 1.7 cm. Area seen inferior to area mentioned above measures: 5.3 x 4.1 x 1.4 cm. Hypoechoic area with hyperechoic center seen right groin measurin.4 x 0.8 x 0.7 cm. IMPRESSION: No evidence of deep vein thrombosis in the left leg. There is evidence of complex poplit eal cysts.
[2019-10-08] MEDS ORDERED: ACETAMINOPHEN TAB 325 MG TAB PO PRN (23:01)
[2019-10-08] MEDS ORDERED: NALOXONE 0.4 MG/ML 1 ML VIAL IV PRN (23:01)
--- NOTE | 2019-10-08 23:09 | ED ---
General Adult HPI - General Source: patient, family, RN notes reviewed, old records reviewed Mode of arrival: wheelchair Limitations: physical limitation <Kulwinder Tomlin - Last Filed: 10/08/19 23:33> <Carli Davison - Last Filed: 10/12/19 21:07> - General Chief complaint: Extremity Problem,Nontraumatic Stated complaint: Post Op Knee Pain Time Seen by Provider: 10/08/19 21:03 - History of Present Illness Initial comments: 48-year-old female patient comes to ED complaining of left knee pain. Patient points that she had a total knee replacement done by Dr. He one week ago. Has been having lots since. Patient developed a hematoma proximal left femur region. Denies any recent falls or trauma denies any other complaints. Systemic: Pt denies fatigue, fever/chills, rash. Pt denies weakness, night sweat s, weight loss. Neuro: Pt denies headache, visual disturbances, syncope or pre-syncope. HEENT: Pt denies ocular discharge or irritation, otalgia, rhinorrhea, pharyngitis or notable lymphadenopathy. Cardiopulmonary: Pt denies chest pain, SOB, heart palpitations, dyspnea on exertion. Abdominal/GI: Pt denies abdominal pain, n/v/d. : Pt denies dysuria, burning w/ urination, frequency/urgency. Denies new onset urinary or bowel incontinence. MSK: Pt denies loss of strength or function in extremities. Neuro: Pt denies new onset weakness, paresthesias. (Kulwinder Tomlin) - Related Data Home Medications Medication Instructions Recorded Confirmed Levothyroxine Sodium [Synthroid] 150 mcg PO DAILY 05/16/14 10/08/19 Cetirizine HCl [Zyrtec] 10 mg PO DAILY 08/08/17 10/08/19 Albuterol Inhaler (Mhu) [Ventolin 1 - 2 puff INHALATION RT-Q6H PRN 08/25/18 10/08/19 Hfa Inhaler (Mhu)] Fluticasone/Salmeterol [Advair 1 inhalation PO RT-Q12H 08/25/18 10/08/19 100-50 Diskus] Sertraline HCl [Zoloft] 150 mg PO DAILY 08/25/18 10/08/19 Cyclobenzaprine [Flexeril] 10 mg PO TID 10/08/19 10/08/19 traZODone HCL [Desyrel] 100 mg PO HS 10/08/19 10/08/19 Metaxalone [Skelaxin] 800 mg PO TID PRN 10/09/19 10/09/19 Previous Rx's Medication Instructions Recorded Omeprazole 40 mg PO DAILY #30 cap 08/27/18 Aspirin [Adult Low Dose Aspirin EC] 81 mg PO BID #60 tablet. 10/04/19 HYDROcodone/APAP 10-325MG [[place] 1 tab PO Q4HR PRN #42 tab 10/04/19 10-325] Losartan-Hctz 50-12.5 mg [Hyzaar 1 tab PO DAILY #0 10/06/19 50-12.5] HYDROcodone/APAP 10-325MG [[place] 1 tab PO Q4HR PRN #42 tab 10/10/19 10-325] oxyCODONE ER [OxyCONTIN] 10 mg PO Q12HR 5 Days #10 tab 10/10/19 Allergies Allergy/AdvReac Type Severity Reaction Status Date / Time Penicillins Allergy Unknown Verified 10/08/19 23:46 Review of Systems ROS Other: All systems not noted in ROS Statement are negative. <Kulwinder Tomlin - Last Filed: 10/08/19 23:33> ROS Other: All systems not noted in ROS Statement are negative. <Carli Davison - Last Filed: 10/12/19 21:07> ROS Statement: Those systems with pertinent positive or pertinent negative responses have been documented in the HPI. Past Medical History Past Medical History: Asthma, Chest Pain / Angina, Fibromyalgia, GERD/Reflux, GI Bleed, Hypertension, Osteoarthritis (OA), Thyroid Disorder Additional Past Medical History / Comment(s): DDD WITH BACK PAIN, hx. of FATTY LIVER. ,TORN LT ROTATOR CUFF 2016, tripped & fell last year, hit face, had brain bleed, ended up w/GI bleed after taking motrin, fell recently & tore left knee meniscus. History of Any Multi-Drug Resistant Organisms: None Reported Past Surgical History: Appendectomy, Bariatric Surgery, Bladder Surgery, Cholecystectomy, Heart Catheterization, Hysterectomy, Tubal Ligation Additional Past Surgical History / Comment(s): partial thyroidectomy, bladder suspension w/mesh (as of 06/28/17 patient has since undergone sx 4x to have various portions of mesh removed), sinus repair surgery, bilateral knee surgery (meniscus, femur fracture on rt) 01-18-16 MANJINDER EN Y GASTRIC BYPASS, EGD, COLONOSCOPY, panniculectomy 08/21/17. left knee surgery. Past Anesthesia/Blood Transfusion Reactions: Family History of Problems w/ Anesthesia, Motion Sickness Additional Past Anesthesia/Blood Transfusion Reaction / Comment(s): Pt has difficulty waking up, difficult intubation. Pts grandmother has difficulty waking and also difficult intubation. Past Psychological History: Anxiety, Depression Smoking Status: Never smoker Past Alcohol Use History: Rare Past Drug Use History: None Reported - Past Family History Mother Family Medical History: Cancer Additional Family Medical History / Comment(s): Breast CA Father Family Medical History: Cancer, CVA/TIA Additional Family Medical History / Comment(s): - stroke <Kulwinder Tomlin - Last Filed: 10/08/19 23:33> General Exam Limitations: physical limitation <Kulwinder Tomlin - Last Filed: 10/08/19 23:33> - General Exam Comments Initial Comments: Constitutional: NAD, AOX3, Pt has pleasant affect. HEENT: NC/AT, trachea midline, neck supple, no lymphadenopathy. Posterior pharynx non erythematous, without exudates. External ears appear normal, without discharge. Mucous membranes moist. Eyes PERRLA, EOM intact. There is no scleral icterus. No pallor noted. Cardiopulmonary: RRR, no murmurs, rubs or gallops, no JVD noted. Lungs CTAB in anterior and posterior garcia. No peripheral edema. Neuro: CN II-XII grossly intact. No nuchal rigidity. No raccon eyes, no farley sign, no hemotympanum. No cervical spinal tenderness. MSK: Mild amount of tenderness to left lower extremity. There is a small amount of swelling around the knee. Incision site appears clean and dry. No erythema. Hematoma is noted on the proximal left femur region midline. No warmth or erythema is noted. There is some tenderness to the left posterior knee region. Neurovascular intact. Posterior tibialis pulse +2. (Kulwinder Tomlin) Course Vital Signs 10/08/19 10/08/19 20:57 23:22 Temperature 98.8 F 98.8 F Pulse Rate 78 74 Respiratory 18 17 Rate Blood Pressure 158/90 152/97 O2 Sat by Pulse 99 97 Oximetry Medical Decision Making - Lab Data Result diagrams: 10/08/19 21:34 10/08/19 21:34 <Kulwinder Tomlin - Last Filed: 10/08/19 23:33> - Lab Data Result diagrams: 10/08/19 21:34 10/08/19 21:34 <Carli Davison - Last Filed: 10/12/19 21:07> - Medical Decision Making 48-year-old female patient presents to ED with cheif complaint of postoperative pain after knee replacement. Patient vital signs are stable, afebrile. Patient pain well-controlled. Physical exam displayed hematoma left lower extremity. Laboratory investigations are overall unremarkable. Ultrasound displayed no evidence of DVT in left lower extremity. There is a Popliteal cyst. Patient to be admitted to observation to Dr. He. Case discussed with Dr. Davison. (Kulwinder Tomlin) I was available for consultation in the emergency department. The history and physical exam were done by the midlevel provider. I was consulted for this patients care. I reviewed the case with the midlevel provider and based on their presentation of the patient, I agree with the assessment, medical decision making and plan of care as documented. Chart was dictated using ticckle dictation software. Attempts were made to correct any dictation errors however some typographical errors may persist. Patient was seen during a national state of emergency due to the Covid-19 pandemic. (Carli Davison) - Lab Data Lab Results 10/08/19 10/08/19 Range/Units 21:34 21:34 WBC 6.0 (3.8-10.6) k/uL RBC 3.71 L (3.80-5.40) m/uL Hgb 9.7 L (11.4-16.0) gm/dL Hct 30.5 L (34.0-46.0) % MCV 82.2 (80.0-100.0) fL MCH 26.1 (25.0-35.0) pg MCHC 31.8 (31.0-37.0) g/dL RDW 15.3 (11.5-15.5) % Plt Count 340 (150-450) k/uL Neutrophils % 69 % Lymphocytes % 18 % Monocytes % 6 % Eosinophils % 5 % Basophils % 0 % Neutrophils # 4.1 (1.3-7.7) k/uL Lymphocytes # 1.1 (1.0-4.8) k/uL Monocytes # 0.4 (0-1.0) k/uL Eosinophils # 0.3 (0-0.7) k/uL Basophils # 0.0 (0-0.2) k/uL Hypochromasia Slight Sodium 136 L (137-145) mmol/L Potassium 4.0 (3.5-5.1) mmol/L Chloride 104 (98-107) mmol/L Carbon Dioxide 26 (22-30) mmol/L Anion Gap 6 mmol/L BUN 11 (7-17) mg/dL Creatinine 0.52 (0.52-1.04) mg/dL Est GFR (CKD-EPI)AfAm >90 (>60 ml/min/1.73 sqM) Est GFR (CKD-EPI)NonAf >90 (>60 ml/min/1.73 sqM) Glucose 80 (74-99) mg/dL Calcium 8.8 (8.4-10.2) mg/dL Total Bilirubin 0.7 (0.2-1.3) mg/dL AST 26 (14-36) U/L ALT 11 (4-34) U/L Alkaline Phosphatase 55 (38-126) U/L Total Protein 6.5 (6.3-8.2) g/dL Albumin 3.7 (3.5-5.0) g/dL Disposition Is patient prescribed a controlled substance at d/c from ED?: No <Kulwinder Tomlin - Last Filed: 10/08/19 23:33> <Carli Davison - Last Filed: 10/12/19 21:07> Clinical Impression: Post-operative pain Disposition: ADMITTED IP TO THIS HOSP Condition: Good
[2019-10-09] MEDS: HYDROmorphone 1 MG/ML 1 ML SYRINGE IVP PRN ×2 (00:48→04:55)
[2019-10-09] MEDS: traZODone HCL 100 MG TAB PO SCH ×2 (00:48→21:13)
[2019-10-09] MEDS ORDERED: diazePAM 2 MG TAB PO PRN (08:47)
[2019-10-09] MEDS ORDERED: HYDROcodone/APAP 10-325MG 1 EACH TAB PO PRN (08:47)
[2019-10-09] MEDS ORDERED: NA PHOS,M-B/NA PHOS,DI-BA 133 ML ENEMA RECTAL PRN (08:48)
[2019-10-09] MEDS ORDERED: ONDANSETRON 4 MG/2 ML VIAL IVP PRN (08:48)
[2019-10-09] MEDS ORDERED: bisacodyL 10 MG SUPP RECTAL PRN (08:48)
[2019-10-09] MEDS ORDERED: traMADol 50 MG TAB PO PRN (08:48)
[2019-10-09] MEDS ORDERED: MAGNESIUM HYDROXIDE 2,400 MG/10 ML CUP PO PRN (08:48)
[2019-10-09] MEDS: HYDROcodone/APAP 10-325MG 1 EACH TAB PO PRN ×3 (09:26→22:21)
[2019-10-09] MEDS: ASPIRIN 81 MG PO SCH ×2 (09:26→21:12)
--- NOTE | 2019-10-09 10:24 | P.HPOR ---
History of Present Illness H&P Date: 10/09/19 Chief Complaint: S/P Right TKA Patient is a 49 yo female seen at bedside this am. She is s/p left TKA on 10/03/19. She was readmitted last evening through the ED after continued concern of swelling at her thigh and difficulty with pain control. She denies numbness or tingling. She denies fever or chills. She has no calf pain. She has no other complaints. Review of Systems All systems: negative Constitutional: Denies chills, Denies fever Eyes: denies blurred vision, denies pain Ears, nose, mouth and throat: Denies headache, Denies sore throat Cardiovascular: Denies chest pain, Denies shortness of breath Respiratory: Denies cough Gastrointestinal: Denies abdominal pain, Denies diarrhea, Denies nausea, Denies vomiting Genitourinary: Denies dysuria, Denies hematuria Musculoskeletal: Denies myalgias Integumentary: Denies pruritus, Denies rash Neurological: Denies numbness, Denies weakness Psychiatric: Denies anxiety, Denies depression Endocrine: Denies fatigue, Denies weight change Past Medical History Past Medical History: Asthma, Chest Pain / Angina, Fibromyalgia, GERD/Reflux, GI Bleed, Hypertension, Osteoarthritis (OA), Thyroid Disorder Additional Past Medical History / Comment(s): DDD WITH BACK PAIN, hx. of FATTY LIVER. ,TORN LT ROTATOR CUFF 2016, tripped & fell last year, hit face, had brain bleed, ended up w/GI bleed after taking motrin, fell recently & tore left knee meniscus. History of Any Multi-Drug Resistant Organisms: None Reported Past Surgical History: Appendectomy, Bariatric Surgery, Bladder Surgery, Cholecystectomy, Heart Catheterization, Hysterectomy, Tubal Ligation Additional Past Surgical History / Comment(s): partial thyroidectomy, bladder suspension w/mesh (as of 06/28/17 patient has since undergone sx 4x to have various portions of mesh removed), sinus repair surgery, bilateral knee surgery (meniscus, femur fracture on rt) 01-18-16 MANJINDER EN Y GASTRIC BYPASS, EGD, COLONOSCOPY, panniculectomy 08/21/17. total left knee surgery 10/02 Past Anesthesia/Blood Transfusion Reactions: Family History of Problems w/ Anesthesia, Motion Sickness Additional Past Anesthesia/Blood Transfusion Reaction / Comment(s): Pt has difficulty waking up, difficult intubation. Pts grandmother has difficulty waking and also difficult intubation. Past Psychological History: Anxiety, Depression Smoking Status: Never smoker Past Alcohol Use History: Rare Past Drug Use History: None Reported - Past Family History Mother Family Medical History: Cancer Additional Family Medical History / Comment(s): Breast CA Father Family Medical History: Cancer, CVA/TIA Additional Family Medical History / Comment(s): - stroke Medications and Allergies Home Medications Medication Instructions Recorded Confirmed Type Levothyroxine Sodium [Synthroid] 150 mcg PO DAILY 05/16/14 10/08/19 History Cetirizine HCl [Zyrtec] 10 mg PO DAILY 08/08/17 10/08/19 History Albuterol Inhaler (Mhu) [Ventolin 1 - 2 puff INHALATION RT-Q6H PRN 08/25/18 10/08/19 History Hfa Inhaler (Mhu)] Fluticasone/Salmeterol [Advair 1 inhalation PO RT-Q12H 08/25/18 10/08/19 History 100-50 Diskus] Sertraline HCl [Zoloft] 150 mg PO DAILY 08/25/18 10/08/19 History Omeprazole 40 mg PO DAILY #30 cap 08/27/18 10/08/19 Rx Aspirin [Adult Low Dose Aspirin EC] 81 mg PO BID #60 tablet. 10/04/19 10/08/19 Rx HYDROcodone/APAP 10-325MG [[place] 1 tab PO Q4HR PRN #42 tab 10/04/19 10/08/19 Rx 10-325] Losartan-Hctz 50-12.5 mg [Hyzaar 1 tab PO DAILY #0 10/06/19 10/08/19 Rx 50-12.5] Cyclobenzaprine [Flexeril] 10 mg PO TID 10/08/19 10/08/19 History traZODone HCL [Desyrel] 100 mg PO HS 10/08/19 10/08/19 History Metaxalone [Skelaxin] 800 mg PO TID PRN 10/09/19 10/09/19 History Allergies Allergy/AdvReac Type Severity Reaction Status Date / Time Penicillins Allergy Unknown Verified 10/08/19 23:46 Physical Examination Inspection of left leg shows well healing benign surgical wound. There is hematoma at the left thigh consistent with recent surgery and tourniquet. No erythema, excessive warmth or sign of infection. Calf is SNT. Neurovascular status is intact with motor and sensation throughout left leg. 2+ DP pulse and less than 2 sec cap refill present. Results - Labs Labs: Abnormal Lab Results - Last 24 Hours (Table) 10/08/19 10/08/19 Range/Units 21:34 21:34 RBC 3.71 L (3.80-5.40) m/uL Hgb 9.7 L (11.4-16.0) gm/dL Hct 30.5 L (34.0-46.0) % Sodium 136 L (137-145) mmol/L H & H 10/08/19 Range/Units 21:34 Hgb 9.7 L (11.4-16.0) gm/dL Hct 30.5 L (34.0-46.0) % Result Diagrams: 10/08/19 21:34 10/08/19 21:34 Assessment and Plan (1) Post-operative pain Narrative/Plan: She will continue with routine post op orthopedic protocol including PT, wound care, pain management, DVT prophylaxis and medical management. Will monitor and expect D/C to home tomorrow. Current Visit: Yes Status: Acute Priority: Medium Code(s): G89.18 - OTHER ACUTE POSTPROCEDURAL PAIN SNOMED Code(s): 462752182 Time with Patient: Less than 30
[2019-10-09] MEDS ORDERED: SENNOSIDES-DOCUSATE SODIUM 1 EACH TAB PO SCH (21:00)
[2019-10-10] MEDS: HYDROcodone/APAP 10-325MG 1 EACH TAB PO PRN (06:25)
[2019-10-10 08:01] VITALS: BP 143/72; PULSE 87; RESP 12; TEMP 98.9
[2019-10-10] MEDS: ASPIRIN 81 MG PO SCH (09:17)
--- NOTE | 2019-10-10 09:20 | P.DS ---
Providers Date of admission: 10/08/19 21:37 Expected date of discharge: 10/10/19 Attending physician: Danilo He Primary care physician: Vaughn Alonzo - Discharge Diagnosis(es) (1) Post-operative pain Patient was readmitted for post op pain and concern of swelling status post TKA on 10/03/19. Her pain and swelling have improved. Hospital course has remained without complication. On day of discharge she is afebrile, vital signs stable, labs within acceptable ranges, tolerating by mouth meds and diet, voiding without difficulty, positive flatus, denies abdominal pain or calf pain, pain is controlled on oral pain medication and has no new complaints. Wound is benign, neurovascular status is intact, calf is soft and nontender, abdomen soft and nontender. Review of systems is negative for numbness, tingling, fever, chills, chest pain, shortness of breath, nausea, vomiting, dizziness, headaches, slurred speech or other. Current Visit: Yes Status: Acute Priority: Medium Patient Condition at Discharge: Good Plan - Discharge Summary Discharge Rx Participant: No New Discharge Prescriptions: New HYDROcodone/APAP 10-325MG [Holland 10-325] 1 tab PO Q4HR PRN #42 tab PRN Reason: Pain oxyCODONE ER [OxyCONTIN] 10 mg PO Q12HR 5 Days #10 tab No Action Levothyroxine Sodium [Synthroid] 150 mcg PO DAILY Cetirizine HCl [Zyrtec] 10 mg PO DAILY Sertraline HCl [Zoloft] 150 mg PO DAILY Fluticasone/Salmeterol [Advair 100-50 Diskus] 1 inhalation PO RT-Q12H Albuterol Inhaler (Mhu) [Ventolin Hfa Inhaler (Mhu)] 1 - 2 puff INHALATION RT-Q6H PRN PRN Reason: Shortness Of Breath Omeprazole 40 mg PO DAILY #30 cap Aspirin [Adult Low Dose Aspirin EC] 81 mg PO BID #60 tablet. HYDROcodone/APAP 10-325MG [Holland 10-325] 1 tab PO Q4HR PRN #42 tab PRN Reason: Pain Losartan-Hctz 50-12.5 mg [Hyzaar 50-12.5] 1 tab PO DAILY #0 traZODone HCL [Desyrel] 100 mg PO HS Cyclobenzaprine [Flexeril] 10 mg PO TID Metaxalone [Skelaxin] 800 mg PO TID PRN PRN Reason: Spasms Discharge Medication List Levothyroxine Sodium [Synthroid] 150 mcg PO DAILY 05/16/14 [History] Cetirizine HCl [Zyrtec] 10 mg PO DAILY 08/08/17 [History] Albuterol Inhaler (Mhu) [Ventolin Hfa Inhaler (Mhu)] 1 - 2 puff INHALATION RT- Q6H PRN 08/25/18 [History] Fluticasone/Salmeterol [Advair 100-50 Diskus] 1 inhalation PO RT-Q12H 08/25/18 [History] Sertraline HCl [Zoloft] 150 mg PO DAILY 08/25/18 [History] Omeprazole 40 mg PO DAILY #30 cap 08/27/18 [Rx] Aspirin [Adult Low Dose Aspirin EC] 81 mg PO BID #60 tablet. 10/04/19 [Rx] HYDROcodone/APAP 10-325MG [Holland 10-325] 1 tab PO Q4HR PRN #42 tab 10/04/19 [Rx] Losartan-Hctz 50-12.5 mg [Hyzaar 50-12.5] 1 tab PO DAILY #0 10/06/19 [Rx] Cyclobenzaprine [Flexeril] 10 mg PO TID 10/08/19 [History] traZODone HCL [Desyrel] 100 mg PO HS 10/08/19 [History] Metaxalone [Skelaxin] 800 mg PO TID PRN 10/09/19 [History] HYDROcodone/APAP 10-325MG [Holland 10-325] 1 tab PO Q4HR PRN #42 tab 10/10/19 [Rx] oxyCODONE ER [OxyCONTIN] 10 mg PO Q12HR 5 Days #10 tab 10/10/19 [Rx] Follow up Appointment(s)/Referral(s): Vaughn Alonzo DO [Primary Care Provider] - 1-2 days Danilo He MD [STAFF PHYSICIAN] - 10/15/19 Activity/Diet/Wound Care/Special Instructions: WBAT keep wound clean and dry take meds as directed Discharge Disposition: HOME SELF-CARE
[2019-10-10] MEDS ORDERED: MULTIVITAMINS, THERA 1 EACH TAB PO SCH (12:00)
== END 2019-10-10 11:45 | disposition home or self-care (01) ==
LOC: EC 20:54 → 1SOBS 21:37
PROVIDERS: ADMIT Orthopaedic Surgery Sports Medicine; ATTEND Orthopaedic Surgery Sports Medicine
DX: G89.18 Other acute postprocedural pain (principal); M25.562 Pain in left knee; J45.909 Unspecified asthma, uncomplicated; M79.7 Fibromyalgia; K21.9 Gastro-esophageal reflux disease without esophagitis; I10 Essential (primary) hypertension; M19.90 Unspecified osteoarthritis, unspecified site; E07.9 Disorder of thyroid, unspecified; M54.9 Dorsalgia, unspecified; K76.0 Fatty (change of) liver, not elsewhere classified; F41.9 Anxiety disorder, unspecified; F32.9 Major depressive disorder, single episode, unspecified; M71.22 Synovial cyst of popliteal space [Baker], left knee; Z91.81 History of falling; Z87.19 Personal history of other diseases of the digestive system; Z87.820 Personal history of traumatic brain injury; Z90.49 Acquired absence of other specified parts of digestive tract; Z98.84 Bariatric surgery status; E89.0 Postprocedural hypothyroidism; Z96.653 Presence of artificial knee joint, bilateral; Z90.710 Acquired absence of both cervix and uterus; Z79.890 Hormone replacement therapy; Z79.899 Other long term (current) drug therapy; Z88.0 Allergy status to penicillin; Z79.82 Long term (current) use of aspirin; Z79.891 Long term (current) use of opiate analgesic; Z80.3 Family history of malignant neoplasm of breast; Z82.3 Family history of stroke; Z11.59 Encounter for screening for other viral diseases
CPT/HCPCS: 96361 ×2; 96376; 96374; 99285; 36415; 97161; 80053; 85025; 93971; G0378 ×3; U0003; J1170 ×2

== ENCOUNTER 2019-12-19 05:38 | Observation (INO) | payer OTHER ==
[2019-12-17 17:21] VITALS: BMI 31.8
[~2019-12-19 05:38] MED LIST changes: +DEXAMETHASONE SOD PHOSPHATE 10 MG/ML 1 ML VIAL IV ONE; +HYDROmorphone 0.5 MG/0.5 ML SYRINGE IVP PRN; +MIDAZOLAM 2 MG/2 ML VIAL IV PRN; +ROPIVACAINE 246.25 MG, EPINEPHrine 0.5 MG, KETOROLAC 30 MG, cloNIDine HCL/PF 80 MCG, WA... MISCELLANE ONE
[2019-12-19] MEDS ORDERED: ROPIVACAINE 246.25 MG, EPINEPHrine 0.5 MG, KETOROLAC 30 MG, cloNIDine HCL/PF 80 MCG, WA... MISCELLANE ONE ×5 (06:00)
[2019-12-19] MEDS ORDERED: LIDOCAINE 1% (10MG/ML) FOR IV START INTRADERMA ONE (06:06)
[2019-12-19] MEDS: LACTATED RINGERS 1,000 ML IV SCH ×8 (06:06→21:14)
[2019-12-19] MEDS ORDERED: SCOPOLAMINE 1.5MG/72HR PATCH TRANSDERM ONE (06:36)
[2019-12-19] MEDS ORDERED: fentaNYL (PF) 50 MCG/ML 2 ML AMP IV ONE (06:39)
[2019-12-19] MEDS ORDERED: MIDAZOLAM 2 MG/2 ML VIAL IV ONE (06:39)
[2019-12-19] MEDS ORDERED: PROPOFOL 10 MG/ML 20 ML VIAL IV ONE (06:59)
[2019-12-19] MEDS ORDERED: TRANEXAMIC ACID 1,000 MG/10 ML VIAL ONE (06:59)
[2019-12-19] MEDS ORDERED: MIDAZOLAM 2 MG/2 ML VIAL ONE (06:59)
[2019-12-19] MEDS ORDERED: fentaNYL (PF) 50 MCG/ML 2 ML AMP ONE (06:59)
[2019-12-19] MEDS ORDERED: SODIUM CHLORIDE 0.9% 100 ML BAG ONE (06:59)
--- NOTE | 2019-12-19 07:16 | P.ANPRN ---
Procedure Note - Anesthesia - Nerve Block Performed Right Adductor Canal Time Out Performed: Yes (06:38) Date of Procedure: 12/19/19 Procedure Start Time: :38 Procedure Stop Time: 06:53 Location of Patient: PreOp Indication: Acute Post-Operative Pain, Requested by Surgeon (Dr He\) Sedation Type: Sedate with meaningful contact maintained Preparation: Sterile Prep, Sterile Dressing Position: Supine Catheter: Indwelling Needle Types: Pajunk Needle Gauge: 21 Ultrasound used to visualize needle placement: Yes Ultrasound used to observe medication spread: Yes Injectate: 0.5% Ropivacaine (see comment for volume) (20cc) Blood Aspirated: No Pain Paresthesia on Injection Noted: No Resistance on Injection: Normal Image Stored and Saved: Yes Events: Uneventful and Well Tolerated
[2019-12-19] MEDS ORDERED: ceFAZolin 3,000 MG in SODIUM CHLORIDE 0.9% IRRIGATIO 3,000 ML IRRIGATION ONE (07:35)
[2019-12-19] MEDS ORDERED: LACTATED RINGERS 1,000 ML IV ONE (08:05)
[2019-12-19] MEDS ORDERED: HYDROmorphone 0.5 MG/0.5 ML SYRINGE IVP PRN ×2 (08:45)
[2019-12-19] MEDS ORDERED: MAGNESIUM HYDROXIDE 2,400 MG/10 ML CUP PO PRN (08:45)
[2019-12-19] MEDS ORDERED: NA PHOS,M-B/NA PHOS,DI-BA 133 ML ENEMA RECTAL PRN (08:45)
[2019-12-19] MEDS ORDERED: HYDROcodone/APAP 10-325MG 1 EACH TAB PO PRN ×2 (08:45→08:48)
[2019-12-19] MEDS ORDERED: traMADol 50 MG TAB PO PRN (08:45)
[2019-12-19] MEDS ORDERED: HYDROcodone/APAP 5-325MG 1 EACH TAB PO PRN (08:45)
[2019-12-19] MEDS ORDERED: NALOXONE 0.4 MG/ML 1 ML VIAL IV PRN (08:45)
[2019-12-19] MEDS ORDERED: ONDANSETRON 4 MG/2 ML VIAL IVP PRN (08:45)
[2019-12-19] MEDS ORDERED: ACETAMINOPHEN TAB 325 MG TAB PO PRN (08:45)
[2019-12-19] MEDS ORDERED: bisacodyL 10 MG SUPP RECTAL PRN (08:45)
[2019-12-19] MEDS ORDERED: hydrOXYzine pamoate 25 MG CAP PO PRN (08:45)
[2019-12-19] MEDS ORDERED: TEMAZEPAM 15 MG CAP PO PRN (08:45)
[2019-12-19] MEDS ORDERED: ROPIVACAINE 0.2%-NS ON-Q PUMP 1,090 MG, EMPTY PAIN BALL 1 EACH MISCELLANE PRN (08:48)
--- NOTE | 2019-12-19 09:25 | XR ---
EXAMINATION TYPE: XR knee limited RT DATE OF EXAM: 12/19/2019 COMPARISON: NONE TECHNIQUE: Two views submitted HISTORY: Post op FINDINGS: There is a prosthetic knee in near anatomic alignment. There is soft tissue edema and emphysema. IMPRESSION: 1. Postoperative change. Appears in near-anatomic alignment
[2019-12-19] MEDS: HYDROmorphone 1 MG/ML 1 ML SYRINGE IVP PRN ×4 (12:39→22:37)
[2019-12-19] MEDS: HYDROcodone/APAP 10-325MG 1 EACH TAB PO PRN (14:41)
[2019-12-19] MEDS: ALBUTEROL NEBULIZED 2.5 MG/3 ML INHALATION SCH ×2 (15:42→20:02)
[2019-12-19] MEDS: SYMBICORT 80-4.5 MCG INHALER INHALATION SCH (20:02)
[2019-12-19] MEDS: traZODone HCL 100 MG TAB PO SCH (20:08)
[2019-12-19] MEDS: ASPIRIN 81 MG PO SCH (20:08)
[2019-12-19] MEDS: SENNOSIDES-DOCUSATE SODIUM 1 EACH TAB PO SCH (20:08)
--- NOTE | 2019-12-19 21:15 | OP ---
OPERATIVE REPORT DATE OF PROCEDURE: 12/19/2019. SURGEON: Dr. Danilo He. BANKING CONSULTANT: Gordon OWEN. PREOPERATIVE DIAGNOSIS: Right knee osteoarthrosis. POSTOPERATIVE DIAGNOSIS: Right knee osteoarthrosis. OPERATION PERFORMED: Right total knee arthroplasty. ANESTHESIA: Spinal sedation. ESTIMATED BLOOD LOSS: 100 mL. TOURNIQUET: Tourniquet time was 35 minutes at 250 mmHg. COMPLICATIONS: None apparent. DRAINS: None. DISPOSITION: Postanesthesia care unit. INDICATIONS: Pina is a 49-year-old female with longstanding history of right knee pain. History and physical examination are consistent with advanced right knee osteoarthrosis. She has been through significant operative management up to this point. Further treatment options were discussed and she decided to go forward with right total knee arthroplasty. The risks of procedure were discussed with her in detail. These risks include, but are not limited to risk of infection, nerve damage, bleeding, pain, and a small risk of deep vein thrombosis which could lead to fatal pulmonary embolism. There is also risk of loosening of the implant which could require revision operation. The patient understands these risks. All of her questions were answered to her satisfaction. An appropriate informed consent was obtained. DESCRIPTION OF PROCEDURE: Patient was identified in preoperative holding area. The surgical site was marked by both the patient and myself. She was given 2 g of Ancef IV for prophylactic purposes, was then transferred to the operative suite. She was placed supine on the operative table. Spinal anesthetic was then administered and dosed per the anesthesia without apparent complication. Examination under anesthesia was then performed. The patient had full extension. She had 110 degrees of flexion. Medial collateral ligament, lateral collateral ligament, posterior cruciate ligaments were stable. Tourniquet was then placed high on the right upper thigh well-padded in preparation for surgery. The patient's right lower extremity was then prepped and draped in usual sterile fashion. Standard surgical pause undertaken to ensure that we were operating the correct site and that appropriate preoperative antibiotics were given. All staff were in agreement and we proceeded. The outlines of the patella were marked with a surgical pen. A planned 12 cm vertical incision centered over the patella was marked with surgical pen. Leg was then exsanguinated with an Esmarch dressing. The knee was then flexed and tourniquet was inflated to 250 mmHg. The total tourniquet time for the procedure was 35 minutes. Incision was then made with a 10 blade scalpel. Dissection carried down sharply overlying fascia. Great care was taken to minimize the skin flaps. The knee was then exposed using a standard medial parapatellar approach. A small cuff of quadriceps tendon was then left for suturing. She was in a bit of varus preoperatively. A standard medial release was then made. Superficial medial collateral ligament was dissected off the bone around the posterior aspect of the proximal tibia. The medial meniscus was then excised as well. The lateral meniscus was also released anteriorly. The leg was then externally rotated. The patella was everted. The knee was flexed. The retractors then placed to protect the collateral ligaments. I then proceeded to remove the infrapatellar fat pad. This was excised sharply tangentially with fibers of the patellar tendon. I then proceeded to remove the peripheral osteophytes. This is done with a rongeur. I then proceed with the distal femoral resection. She did have full extension. A planned 9 mm resection was then done. The femoral canal was then entered in midline of the femur approximately 10 mm anterior to the origin of the posterior cruciate ligament. The linda was then advanced down the center of the femur and placed intramedullary. Based on the preoperative radiographs, the angle between the anatomic and mechanical axis of the femur was approximately 4-5 degrees. The valgus angle the distal femoral cutting guide was then set at 4 degrees for the right knee. The distal femoral cutting guide was then advanced over the intramedullary linda. This was seated firmly against the femur. I then as mentioned planned to take 9 mm off the distal femur. The block was then secured onto the femur with pins. The jig was then removed. The distal femoral cut was made through the slot of the block. The pins then removed. The distal cutting block was removed. The accuracy of the distal femoral cuts was checked with 2 flat bars. I then proceeded with femoral sizing. Posterior referencing sizing guide was held firmly against the resected distal surface of the femur. The posterior condyles were resting on the posterior plane of the guide. The sizing guide was then placed onto the anterior femur. The size was measured as a size 7. I then assessed for femoral rotation. Plan was for 3 degrees external rotation. Three degrees of external rotation was placed onto the jig. These holes were then marked. I then confirmed the rotation by 3 separate methods. This was done using epicondylar axis as well as Whitesides line and posterior referencing. Deemed that the external rotation was proper. I then went forward placing the femoral cutting block. This was placed over the previously placed pin holes. The Diego wing was then placed onto the anterior slots to ensure that we would not notch the anterior femur with the anterior femoral cut. I then proceed with the anterior femoral cut. This was flush with the anterior cortex of the femur. Posterior cuts were then made followed by the anterior chamfer cut, then the posterior chamfer cut. The cutting block was then removed. Throughout the resection, the collateral ligaments were protected with retractors. I then placed a trial size 7 femur. It was slightly wide mediolateral but the narrow fit very nicely and it fit flush with the distal end of the femur. The drill holes were then made. I then proceeded with the tibial cut. I planned for cruciate retaining knee. The guide was placed in separate varus valgus and for slope. The height was set for approximate 2 mm resection from the medial tibial plateau which was the lower side. I was happy with the alignment and the amount of resection. The cutting block was then pinned to the proximal tibia. The alignment linda was removed. The proximal tibia was resected with a reciprocating saw. Again this was done with retractors protecting the collateral ligaments as well as the posterior cruciate ligament. I then proceeded to evaluate the flexion extension gaps. A 10 mm block was then placed. The flexion-extension gaps were equal. I then proceed to resection of posterior osteophytes. Very minimal posterior osteophytes. This is done using a curved osteotome. This resected the posterior osteophytes and posterior capsule stripping was done off the posterior aspect of the femur. Osteophytes were then removed. I then proceed resection of patella. The thickness of patella was measured using the caliper. The thickness was approximately 22 mm. The thickness of the anticipated patellar dome was taken into account. Resection was then performed and confirmed to be equal in 4 quadrants using a caliper. Approximately 14 mm of bone remained after resection. A 29 x 8 standard patellar trial was then placed. The holes were drilled. The trial was then placed. I then proceed with sizing tibial plate. A size D tibial plate fit very nicely. I then placed the trial femur, the tibial tray and the patellar button. A 10 mm trial and tibial insert was also placed. The components fit very nicely. She had full extension and flexion. The extension and flexion gaps were equal and stable to both varus and valgus stress. The patella tracked appropriately. The tibial tray rotation was then marked with a Bovie. This was externally rotated properly. I then proceeded with tibial preparation. First, prepared the femoral holes removed femoral component. The tibial tray was then set for proper external rotation as well as mediolateral placement onto the tibia. It was then pinned into place. I then proceed with punching the keel. I then decided to proceed with cementing of all of our components. The knee was thoroughly irrigated with sterile saline solution via pulse lavage. The lateral geniculate artery was identified and cauterized. All blood was removed from the bone of the tibia, femur and patella with pulse lavage. I then proceed with cementing. Two packs of antibiotic bone cement were prepared on the back table by the cardiovascular surgical tech. I then proceed with cementing the tibia first. The cement was impacted into the keel as well as deeply seated in the bone. A second coat of cement was then placed. The tibia was then impacted into place. Excess cement was removed with Peter's and Joker's. I then proceed with cementing of the femoral component. The femoral component was also cemented using standard technique. Excess cement was removed. A 10 mm trial insert was then placed into the knee. It was brought into full extension with a constant axial load placed until the cement had hardened. The patellar component was then cemented. This was held firmly with a compressive device until the cement had dried. When the cement had dried, the knee was taken out of extension. All excess cement was removed from around the prosthesis. I then trialed the knee with a 10 mm insert. Flexion extension gaps were appropriate. The knee was stable. It came into full extension. I decided to go for the 10 mm clot cross-linked cruciate-retaining tibial insert. Polyethylene was then placed onto the tibial tray and locked into place. The knee was then reduced. The knee was again further irrigated with sterile saline solution with antibiotic added. The tourniquet was then deflated. Total tourniquet time for the procedure was 35 minutes at 250 mmHg. Final components were Lily Persona size 7 narrow cruciate-retaining femoral component, size D tibial tray, a 10 mm medial congruent cruciate-retaining polyethylene insert and a 29 x 8 mm patella. I then proceeded with closure. Again, the knee was thoroughly irrigated. The quadriceps tendon and the medial retinaculum were reapproximated with #2 Ethibond suture. The extensor mechanism was then closed with a running #2 Quill suture. Subcutaneous tissues were closed with 2-0 Vicryl interrupted suture. The skin was closed with a running 3-0 Quill suture. Dermabond was applied to the incision. Sterile compressive dressings were applied. All sponge and needle counts were deemed correct prior to closure. The patient tolerated procedure well without apparent complication. She was transferred recovery room in stable condition. MMODL / IJN: [id number] /
--- NOTE | 2019-12-19 22:41 | CONS ---
CONSULTATION REASON FOR CONSULTATION: Advice regarding asthma and other multiple medical issues, requested by Dr. He. HISTORY OF PRESENT ILLNESS: This 49-year-old woman with a past history of asthma, fibromyalgia, GERD, GI bleed, hypertension, history of appendectomy, bariatric surgery, being followed by primary physician in [facility] underwent right total knee joint arthroplasty by Dr. He. The patient tolerated the procedure well. There is no history of fever, rigors or chills. No history of headache, loss of consciousness or seizures. Occasional wheezing was noted. PAST MEDICAL HISTORY: History of asthma, fibromyalgia, GERD, GI bleed, hypertension, DJD, history of appendectomy, bariatric surgery. MEDICATIONS: Prior to admission include home medications: trazodone, Zoloft, omeprazole, losartan, Synthroid, Advair, cetirizine, albuterol p.r.n. ALLERGIES: PENICILLIN. FAMILY HISTORY: Family history of breast cancer in the family. SOCIAL HISTORY: No history of smoking. Occasional alcohol intake. REVIEW OF SYSTEMS: ENT: No diminished vision. No diminished hearing. Cardio system is as mentioned. RESPIRATORY: As mentioned earlier. GI no nausea or vomiting. no dysuria. NERVOUS SYSTEM: No numbness or weakness. ALLERGY/IMMUNOLOGY: No asthma or hayfever. MUSCULOSKELETAL: As mentioned earlier. HEMATOLOGY/ONCOLOGY: No history of anemia. ENDOCRINE: Hypothyroidism. CONSTITUTIONAL: As mentioned earlier. DERMATOLOGY negative. RHEUMATOLOGY: Negative. PSYCHIATRIC: As mentioned earlier. PHYSICAL EXAM: Patient is alert, oriented x3. The pulse is 62. Blood pressure 124/83, respiration 18, temperature 97.7, pulse ox 99% on 2 L. HEENT: Conjunctivae normal. NECK: No JVD. CARDIOVASCULAR: S1, S2 muffled. RESPIRATORY: Breath sounds diminished in the bases. No rhonchi. A few rhonchi. No crackles. ABDOMEN: Soft, nontender. No mass palpable. LEGS status post right knee arthroplasty. NERVOUS SYSTEM: Higher functions as mentioned. Moves all four limbs. No focal motor or sensory deficits. LYMPHATICS: No lymph nodes palpable in the neck, axillae or groin. SKIN: No ulcer, no rashes or bleeding. JOINTS: No active deforming arthropathy. LABS: Hemoglobin 9.7. Otherwise, chemistry sodium 136. ASSESSMENT: 1. Status post right total knee arthroplasty. 2. Mild hyponatremia as well as mild anemia prior to admission. 3. History of asthma. 4. Fibromyalgia. 5. Gastroesophageal reflux disease. 6. History of gastrointestinal bleed. 7. Hypertension. 8. History of degenerative joint disease. 9. History of hypothyroidism. 10.Chronic back pain. 11.Appendectomy. 12.History of bariatric surgery. 13.History of cholecystectomy. 14.History of partial thyroidectomy. 15.FULL CODE. RECOMMENDATIONS AND DISCUSSION: This 49-year-old woman who presented with multiple complex medical issues, we will monitor the patient closely. Continue the current medications, management and symptomatic treatment. Resume the home medications. I would also recommend repeat labs and use the albuterol around the clock now and incentive spirometry. DVT prophylaxis. We will follow the patient closely with you. The patient may be asked to follow up with primary closely after discharge. Thank you Dr. He for letting us participate in the care of this patient. MMAKASHL / RENZON: [id number] /
[2019-12-20] MEDS: LACTATED RINGERS 1,000 ML IV SCH ×4 (02:19→16:02)
[2019-12-20] MEDS: HYDROmorphone 1 MG/ML 1 ML SYRINGE IVP PRN (02:43)
[2019-12-20] MEDS: HYDROcodone/APAP 10-325MG 1 EACH TAB PO PRN ×4 (05:43→21:54)
[2019-12-20] MEDS: LEVOTHYROXINE 75 MCG TAB PO SCH (05:43)
[2019-12-20] MEDS ORDERED: oxyCODONE-APAP 7.5-325MG 1 EACH TAB PO PRN ×2 (07:10)
[2019-12-20] MEDS: diazePAM 5 MG TAB PO PRN ×2 (07:19→15:55)
[2019-12-20] MEDS: PANTOPRAZOLE 40 MG TABLET PO SCH (07:19)
[2019-12-20] MEDS: SERTRALINE 100 MG TAB PO SCH (07:19)
[2019-12-20] MEDS: ASPIRIN 81 MG PO SCH ×2 (07:19→20:24)
[2019-12-20] MEDS: LORATADINE 10 MG TAB PO SCH (07:20)
[2019-12-20] MEDS: MULTIVITAMINS, THERA 1 EACH TAB PO SCH (07:20)
--- NOTE | 2019-12-20 07:32 | P.PN ---
Progress Note - Text Progress Note Date: 12/20/19 Patient with complaints of pain 09/26. Ambulating to the bathroom without difficulty and appears in no significant distress. Using multimodal analgesia with some success. Patient is on chronic opiates and will have significant tolerance. Left adductor catheter site clean and dry. POD#1 s/p left TKA. - multimodal analgesia - increase rate of adductor canal catheter
[2019-12-20 07:53] LABS: Basophils % (A) 0 %; Eosinophils # (A) 0.1 k/uL (0-0.7); Eosinophils % (A) 2 %; HCT 28.5 % (34.0-46.0); HGB 8.8 gm/dL (11.4-16.0); Hypochromasia Marked; Lymphocytes # (A) 0.6 k/uL (1.0-4.8); Lymphocytes % (A) 10 %; MCH 24.8 pg (25.0-35.0); MCHC 30.8 g/dL (31.0-37.0); MCV 80.5 fL (80.0-100.0); Mean Platelet Volume 7.2; Monocytes # (A) 0.3 k/uL (0-1.0); Monocytes % (A) 6 %; Neutrophils # (A) 4.6 k/uL (1.3-7.7); Neutrophils % (A) 81 %; Platelet Count 172 k/uL (150-450); RBC 3.54 m/uL (3.80-5.40); RDW 14.7 % (11.5-15.5); WBC 5.7 k/uL (3.8-10.6)
[2019-12-20] MEDS: ALBUTEROL NEBULIZED 2.5 MG/3 ML INHALATION SCH ×4 (08:19→20:24)
[2019-12-20] MEDS: SYMBICORT 80-4.5 MCG INHALER INHALATION SCH ×2 (08:20→20:24)
[2019-12-20] MEDS: oxyCODONE ER 10 MG TAB.ER.12H PO SCH ×2 (08:25→20:24)
--- NOTE | 2019-12-20 09:48 | P.PN ---
Subjective Progress Note Date: 12/20/19 Principal diagnosis: Right TKA Patient is seen at bedside this morning. She is postop day #1 from right total knee arthroplasty. She has pain at the surgical site as expected but denies any new complaints. She denies numbness, tingling or calf pain. Review of systems is negative for fever, chills, chest pain, shortness of breath or other Objective - Vital Signs Vital signs: Vital Signs Temp 98.7 F 12/20/19 07:00 Pulse 68 12/20/19 08:36 Resp 17 12/20/19 07:00 BP 120/79 12/20/19 07:00 Pulse Ox 92 L 12/20/19 07:00 Intake & Output 12/19/19 12/20/19 12/20/19 18:59 06:59 18:59 Intake Total 951 50 Output Total 100 Balance 851 50 Weight 82.7 kg Intake: IV 951 Intake, IV Titration 50 Amount ceFAZolin 2 gm In Sodium 50 Chloride 0.9% 50 ml @ 100 mls/hr IVPB Q8H [facility] Rx#: [id number] Output: Estimated Blood Loss 100 Other: Voiding Method Toilet # Voids 1 1 - Exam Inspection reveals a benign surgical wound. There is no active bleeding or drainage. Neurovascular status is intact throughout the lower extremity with motor and sensation fully intact. Calf is soft and nontender. 2+ dorsalis pedis pulse and less than 2 second cap refill is present. - Constitutional General appearance: Present: no acute distress - Labs CBC & Chem 7: 12/20/19 07:25 Labs: Abnormal Lab Results - Last 24 Hours (Table) 12/20/19 Range/Units 07:25 RBC 3.54 L (3.80-5.40) m/uL Hgb 8.8 L (11.4-16.0) gm/dL Hct 28.5 L (34.0-46.0) % MCH 24.8 L (25.0-35.0) pg MCHC 30.8 L (31.0-37.0) g/dL Lymphocytes # 0.6 L (1.0-4.8) k/uL Assessment and Plan (1) Osteoarthritis of right knee Narrative/Plan: She will continue with routine postop orthopedic protocol including pain man agement, wound care, PT, DVT prophylaxis and medical management. Expect that she will transfer to home tomorrow Current Visit: Yes Status: Acute Priority: Medium Code(s): M17.11 - UNILATERAL PRIMARY OSTEOARTHRITIS, RIGHT KNEE SNOMED Code(s): 286477746056038 Time with Patient: Less than 30
[2019-12-20] MEDS: LOSARTAN-HCTZ 50-12.5 MG 1 EACH TAB PO SCH (10:44)
[2019-12-20 11:54] LABS: African American GFR (CKD) 122.3 (60.0-200.0); Anion Gap 7.8 mmol/L (4.00-12.00); BUN/Creat Ratio 26.67 Ratio (12.00-20.00); Calcium 8.5 mg/dL (8.7-10.3); Carbon Dioxide 25.2 mmol/L (21.6-31.8); Non-African American GFR(CKD) 105.5 (60.0-200.0); Potassium 4.4 mmol/L (3.5-5.5)
[2019-12-20 14:26] VITALS: RESP 16
[2019-12-20] MEDS: FERROUS SULFATE 325 MG TAB PO SCH (15:55)
--- NOTE | 2019-12-20 17:02 | PN ---
PROGRESS NOTE DATE OF SERVICE: 12/20/2019 This 49-year-old woman is admitted with right total knee arthroplasty, is complaining of knee pain. No chest pain. No palpitations. No fever. PHYSICAL EXAMINATION: Alert and oriented times three. Pulse 70, blood pressure 149/80, respirations 16, temperature 98.2, pulse ox 94% on room air. HEENT: Conjunctivae normal. NECK: No JVD. CARDIOVASCULAR: S1, S2 muffled. RESPIRATIONS: Breath sounds diminished in the bases. No rhonchi. No crackles. ABDOMEN: Soft, nontender. LEGS: Status post right knee arthroplasty. NERVOUS SYSTEM: No focal deficits. LABS: WBC 5.3, hemoglobin is 8.8. Otherwise, calcium is 8.5. ASSESSMENT: 1. Status post right total knee arthroplasty. 2. Mild hyponatremia as well as mild anemia present in the previous labs. 3. History of asthma. 4. Fibromyalgia. 5. Gastroesophageal reflux disease. 6. History of gastrointestinal bleed. 7. Hypertension. 8. History of degenerative joint disease. 9. History of hypothyroidism. 10.History of chronic back pain. 11.Appendectomy. 12.History of bariatric surgery. 13.History of cholecystectomy. 14.History of partial thyroidectomy. 15.FULL CODE. RECOMMENDATIONS AND DISCUSSION: Recommend to continue current medications, management and symptomatic treatment. Otherwise, I recommend iron supplementation. Repeat labs. DVT prophylaxis. Incentive spirometry. Closely follow. Recommend close followup with primary physician in the outpatient setting. Thank you Dr. He. CLAUDIA / RENZON: [id number] /
[2019-12-20] MEDS: SENNOSIDES-DOCUSATE SODIUM 1 EACH TAB PO SCH (20:24)
[2019-12-20] MEDS: traZODone HCL 100 MG TAB PO SCH (20:25)
[2019-12-21] MEDS: LACTATED RINGERS 1,000 ML IV SCH ×4 (00:06→09:17)
[2019-12-21] MEDS: HYDROcodone/APAP 10-325MG 1 EACH TAB PO PRN ×3 (02:32→13:35)
[2019-12-21] MEDS: LEVOTHYROXINE 75 MCG TAB PO SCH (05:52)
[2019-12-21] MEDS: PANTOPRAZOLE 40 MG TABLET PO SCH (07:32)
[2019-12-21 08:15] VITALS: BP 152/89; TEMP 98.2
[2019-12-21] MEDS: LOSARTAN-HCTZ 50-12.5 MG 1 EACH TAB PO SCH (09:15)
[2019-12-21] MEDS: LORATADINE 10 MG TAB PO SCH (09:15)
[2019-12-21] MEDS: ASPIRIN 81 MG PO SCH (09:15)
[2019-12-21] MEDS: oxyCODONE ER 10 MG TAB.ER.12H PO SCH (09:15)
[2019-12-21] MEDS: SERTRALINE 100 MG TAB PO SCH (09:16)
[2019-12-21] MEDS: MULTIVITAMINS, THERA 1 EACH TAB PO SCH (09:16)
[2019-12-21] MEDS: SYMBICORT 80-4.5 MCG INHALER INHALATION SCH (09:49)
[2019-12-21] MEDS: ALBUTEROL NEBULIZED 2.5 MG/3 ML INHALATION SCH (09:50)
[2019-12-21 09:55] VITALS: PULSE 70
[2019-12-21 10:17] LABS: Basophils % (A) 0 %; Eosinophils # (A) 0.1 k/uL (0-0.7); Eosinophils % (A) 2 %; HCT 28.7 % (34.0-46.0); HGB 8.9 gm/dL (11.4-16.0); Hypochromasia Slight; Lymphocytes # (A) 0.9 k/uL (1.0-4.8); Lymphocytes % (A) 18 %; MCH 24.1 pg (25.0-35.0); MCHC 31.1 g/dL (31.0-37.0); MCV 77.5 fL (80.0-100.0); Mean Platelet Volume 7.9; Monocytes # (A) 0.3 k/uL (0-1.0); Monocytes % (A) 6 %; Neutrophils # (A) 3.7 k/uL (1.3-7.7); Neutrophils % (A) 73 %; Platelet Count 183 k/uL (150-450); RDW 14.6 % (11.5-15.5); WBC 5.1 k/uL (3.8-10.6)
--- NOTE | 2019-12-21 10:56 | P.DS ---
Providers Date of admission: 12/19/19 23:20 Expected date of discharge: 12/21/19 Attending physician: Danilo He Consults: 12/19/19 08:45 Consult Physician Routine Consulting Provider: Priscilla Irene Consult Reason/Comments: post op medical management Do you want consulting provider notified?: Yes Primary care physician: Stated None Hospital Course: This is a 49-year-old female who was last seen with complaint of continued right knee pain. The patient has a known history of degenerative arthritis of the right knee and presents to discuss surgical options. After discussion and consideration the patient elects to proceed with total right knee arthroplasty. The patient is seen preoperatively by Dr. Simons and cleared for surgery. The patient is admitted to [facility] for total right knee arthroplasty. The procedures performed without complication or sequelae. Patient is doing well postoperatively. Vital signs are stable at discharge. L abs are stable at discharge. Patient is examined bedside this morning. She states she her pain is much more controlled today compared to yesterday. She has been up with physical therapy this morning. She states she is ambulating with a walker with minimal assistance. She would like to return home today. She states she feels comfortable returning home. She is voiding freely. She denies chest pain, shortness of breath, nausea, vomiting, fevers, chills. She denies numbness or tingling of the right lower extremity. She denies any complaints or concerns today. On examination, the patient is sitting up in bed in no apparent distress. She is alert and oriented 3. On inspection of the right knee, there is a clean, dry, intact dressing in place to the anterior knee. There is no bleeding or drainage through the dressing. Right lower extremity is warm and well-perfused with brisk capillary refill distally. Dorsalis pedis pulse +2. Motor and sensory function are intact of the right lower extremity. The calves are soft and nontender to palpation bilaterally. The patient is discharged to home on postop day #2, pending medical clearance. Please see orders and refer to the med rec for accurate list of medications. Patient Condition at Discharge: Fair Plan - Discharge Summary Discharge Rx Participant: Yes New Discharge Prescriptions: New Docusate [Colace] 100 mg PO BID #60 capsule HYDROcodone/APAP 10-325MG [[place] 10-325] 1 tab PO Q4HR PRN #42 tab PRN Reason: Pain oxyCODONE ER [OxyCONTIN] 10 mg PO Q12HR 5 Days #10 tab Aspirin [Adult Low Dose Aspirin EC] 81 mg PO BID 30 Days #60 tablet. No Action Levothyroxine Sodium [Synthroid] 150 mcg PO DAILY Cetirizine HCl [Zyrtec] 10 mg PO DAILY Sertraline HCl [Zoloft] 150 mg PO DAILY Fluticasone/Salmeterol [Advair 100-50 Diskus] 1 inhalation PO RT-Q12H Albuterol Inhaler (Mhu) [Ventolin Hfa Inhaler (Mhu)] 1 - 2 puff INHALATION RT-Q6H PRN PRN Reason: Shortness Of Breath Omeprazole 40 mg PO DAILY #30 cap Losartan-Hctz 50-12.5 mg [Hyzaar 50-12.5] 1 tab PO DAILY #0 traZODone HCL [Desyrel] 100 mg PO HS Discharge Medication List Levothyroxine Sodium [Synthroid] 150 mcg PO DAILY 05/16/14 [History] Cetirizine HCl [Zyrtec] 10 mg PO DAILY 08/08/17 [History] Albuterol Inhaler (Mhu) [Ventolin Hfa Inhaler (Mhu)] 1 - 2 puff INHALATION RT- Q6H PRN 08/25/18 [History] Fluticasone/Salmeterol [Advair 100-50 Diskus] 1 inhalation PO RT-Q12H 08/25/18 [History] Sertraline HCl [Zoloft] 150 mg PO DAILY 08/25/18 [History] Omeprazole 40 mg PO DAILY #30 cap 08/27/18 [Rx] Losartan-Hctz 50-12.5 mg [Hyzaar 50-12.5] 1 tab PO DAILY #0 10/06/19 [Rx] traZODone HCL [Desyrel] 100 mg PO HS 10/08/19 [History] Docusate [Colace] 100 mg PO BID #60 capsule 12/20/19 [Rx] HYDROcodone/APAP 10-325MG [[place] 10-325] 1 tab PO Q4HR PRN #42 tab 12/20/19 [Rx] oxyCODONE ER [OxyCONTIN] 10 mg PO Q12HR 5 Days #10 tab 12/20/19 [Rx] Aspirin [Adult Low Dose Aspirin EC] 81 mg PO BID 30 Days #60 tablet. 12/21/19 [Rx] Follow up Appointment(s)/Referral(s): Stefanie Simons NPC [Family Provider] - 12/25/19 11:00 am [facility], [NON-STAFF] - Danilo He MD [STAFF PHYSICIAN] - 12/30/19 10:45 am Activity/Diet/Wound Care/Special Instructions: Keep wound clean and dry Take meds as directed Follow-up with Dr. He in office Weight bear as tolerated May shower in 3 days if no bleeding Discharge Disposition: HOME WITH HOME HEALTH SERVICES
[2019-12-21] MEDS: FERROUS SULFATE 325 MG TAB PO SCH (12:09)
--- NOTE | 2019-12-21 15:20 | PN ---
PROGRESS NOTE DATE OF SERVICE: 12/21/2019 This 49-year-old woman who was admitted after right total knee arthroplasty is improving significantly. No chest pain. No palpitations. No fever. Orthopedic surgery planning discharge. PHYSICAL EXAMINATION: Alert and oriented times three. Pulse 58, blood pressure 152/89, respiration 16. Temperature 98.2, pulse ox 98% on room air. HEENT: Conjunctivae normal. NECK: No JVD. CARDIOVASCULAR: S1, S2 muffled. RESPIRATIONS: Breath sounds diminished in the bases. No rhonchi. No crackles. ABDOMEN: Soft, nontender. LEGS: Status post surgery. LABS: WBC 5.2, hemoglobin is 8.9. ASSESSMENT: 1. Status post right total knee arthroplasty. 2. Mild hyponatremia as well as mild anemia, possibly iron deficiency, present on admission. 3. History of asthma. 4. Fibromyalgia. 5. Gastroesophageal reflux disease. 6. History of gastrointestinal bleed. 7. Hypertension. 8. History of degenerative joint disease. 9. History of hypothyroidism. 10.History of chronic back pain. 11.Appendectomy. 12.History of bariatric surgery. 13.History of cholecystectomy. 14.History of partial thyroidectomy. RECOMMENDATIONS AND DISCUSSION: Recommend to continue current medications, management and symptomatic treatment. Resume the home medications. Closely follow with primary physician. Repeat labs in the outpatient setting. Also recommended continue with iron tablets at home. Further recommendations to follow. MMODL / IJN: [id number] /
== END 2019-12-21 13:36 | disposition home health service (06) ==
LOC: OR 05:38 → 4SSUR 08:53 → OR 23:33
PROVIDERS: ADMIT Orthopaedic Surgery Sports Medicine; ATTEND Orthopaedic Surgery Sports Medicine
DX: M17.11 Unilateral primary osteoarthritis, right knee (principal); M71.22 Synovial cyst of popliteal space [Baker], left knee; E87.1 Hypo-osmolality and hyponatremia; D64.9 Anemia, unspecified; M79.7 Fibromyalgia; K21.9 Gastro-esophageal reflux disease without esophagitis; Z90.710 Acquired absence of both cervix and uterus; I10 Essential (primary) hypertension; Z97.3 Presence of spectacles and contact lenses; F32.9 Major depressive disorder, single episode, unspecified; G89.29 Other chronic pain; M54.9 Dorsalgia, unspecified; J45.909 Unspecified asthma, uncomplicated; F41.9 Anxiety disorder, unspecified; G47.00 Insomnia, unspecified; R26.81 Unsteadiness on feet; E89.0 Postprocedural hypothyroidism; Z87.11 Personal history of peptic ulcer disease; Z87.19 Personal history of other diseases of the digestive system; Z90.49 Acquired absence of other specified parts of digestive tract; Z98.84 Bariatric surgery status; Z79.890 Hormone replacement therapy; Z98.890 Other specified postprocedural states; Z96.652 Presence of left artificial knee joint; Z80.3 Family history of malignant neoplasm of breast; Z79.51 Long term (current) use of inhaled steroids; Z79.899 Other long term (current) drug therapy; Z79.82 Long term (current) use of aspirin; Z79.891 Long term (current) use of opiate analgesic; Z88.0 Allergy status to penicillin
CPT/HCPCS: 27447; 94640 ×5; 94760; 97116; 97110 ×2; 97161; 64448; 76942; 80048; 85025 ×2; 88300; 73560; G0378 ×3; C1776; C1713; J2250; J0171; J0690 ×2; J2405; J3010; J1885; J1170 ×2; J2795 ×2; J2704; J0735

== ENCOUNTER → 2022-01-10 | Outpatient (CLI) | payer OTHER ==
[2022-01-10 13:48] VITALS: BP 116/75; PULSE 75; RESP 16; TEMP 98.3; BMI 35.6
[2022-01-10 19:19] LABS: HCT 31.8 % (37.2-46.3); MCHC 31.4 g/dL (32.0-37.0); MCV 73.1 fL (80.0-97.0); Mean Platelet Volume 10.1 fL (9.5-12.2); NRBC Per 100 WBC 0 /100 WBCS (0.0-0.0); Platelet Count 321 X 10*3/uL (140-440); RBC 4.35 X 10*6/uL (4.10-5.20); RDW 15.9 % (11.5-14.5); WBC 6.86 X 10*3/uL (4.50-10.00)
[2022-01-11 00:53] LABS: % Iron Saturation 3.65 (12.00-45.00); ALT 14 U/L (8-44); AST 22 U/L (13-35); African American GFR (CKD) 107.7 (60.0-200.0); Albumin 4.3 g/dL (3.8-4.9); Alkaline Phosphatase 73 U/L (41-126); BUN/Creat Ratio 20.76 Ratio (12.00-20.00); Blood Urea Nitrogen 15.3 mg/dL (9.0-27.0); Calcium 8.9 mg/dL (8.7-10.3); Carbon Dioxide 21.6 mmol/L (20.0-27.5); Chloride 103 mmol/L (96-109); Globulin 2.5 g/dL (1.6-3.3); Glucose 84 mg/dL (70-110); Iron 19 ug/dL (50-170); Magnesium 2.2 mg/dL (1.5-2.4); Potassium 4.1 mmol/L (3.5-5.5); Sodium 137 mmol/L (135-145); Total Bilirubin <0.15 mg/dL (0.30-1.20); Total Iron Binding Capacity 521 ug/dL (228-460); Total Protein 6.8 g/dL (6.2-8.2)
[2022-01-11 15:15] LABS: Zinc, Serum 67 ug/dL (60-130)
[2022-01-12 06:14] LABS: Vitamin A 38 ug/dL (38-106)
== END ==
LOC: BARWHC3 13:23
PROVIDERS: ATTEND Surgery
DX: D50.8 Other iron deficiency anemias (principal); K90.9 Intestinal malabsorption, unspecified; T56.894A Toxic effect of other metals, undetermined, initial encounter; E55.9 Vitamin D deficiency, unspecified; E66.01 Morbid (severe) obesity due to excess calories; Z68.35 Body mass index [BMI] 35.0-35.9, adult
CPT/HCPCS: 84255; 84425; 80053; 82607; 82728; 82746; 83540; 83550; 83735; 84443; 84590; 84630; 85027; 82306; G0463; 99211

== ENCOUNTER 2022-05-30 12:17 | Day surgery (SDC) | payer OTHER ==
[2022-05-24 11:36] VITALS: BMI 35.4
[~2022-05-30 12:17] MED LIST changes: -ACETAMINOPHEN TAB 500 MG TAB PO ONE; -DEXAMETHASONE SOD PHOSPHATE 10 MG/ML 1 ML VIAL IV ONE; -GABAPENTIN 300 MG CAP PO ONE; -HYDROmorphone 0.5 MG/0.5 ML SYRINGE IVP PRN; +LACTATED RINGERS 1,000 ML IV SCH; +LIDOCAINE 1% (10MG/ML) FOR IV START INTRADERMA PRN; -MELOXICAM 7.5 MG TAB PO ONE; -MIDAZOLAM 2 MG/2 ML VIAL IV PRN; -ONDANSETRON 4 MG/2 ML VIAL IVP ONE; -ROPIVACAINE 246.25 MG, EPINEPHrine 0.5 MG, KETOROLAC 30 MG, cloNIDine HCL/PF 80 MCG, WA... MISCELLANE ONE; -TRANEXAMIC ACID 1,000 MG in SODIUM CHLORIDE 0.9% 100 ML IVPB ONE
[2022-05-30 12:55] VITALS: TEMP 98.4
[2022-05-30] MEDS ORDERED: LIDOCAINE 2% INJ 20 MG/ML (2 ML VIAL) ONE (13:39)
[2022-05-30] MEDS ORDERED: PROPOFOL 10 MG/ML 20 ML VIAL IV ONE (13:39)
--- NOTE | 2022-05-30 13:58 | P.GSHP ---
History of Present Illness H&P Date: 05/30/22 Chief Complaint: GERD, and colonoscopy Asst. 51-year-old female who's had complaints of GERD. Patient states she is appears history of peptic ulcer disease. He also presents for screening colonoscopy. Past Medical History Past Medical History: Asthma, Chest Pain / Angina, Fibromyalgia, GERD/Reflux, GI Bleed, Hypertension, Liver Disease, Musculoskeletal Disorder, Osteoarthritis (OA), Thyroid Disorder Additional Past Medical History / Comment(s): Degenerative Disc Disease w/ chronic back pain. Hx of fatty liver. Torn Lt Rotator cuff 2016. Hx fall 07/2018, with fractured nose and brain bleed. Hx GI bleed after taking Motrin. "Cardiac incident in 2016, that's all they told me." History of Any Multi-Drug Resistant Organisms: None Reported Past Surgical History: Appendectomy, Bariatric Surgery, Bladder Surgery, Cholecystectomy, Heart Catheterization, Hysterectomy, Joint Replacement, Orthopedic Surgery, Tubal Ligation Additional Past Surgical History / Comment(s): Partial thyroidectomy, bladder suspension w/mesh (has since undergone sx 4X for excision of mesh), sinus repair surgery, bilateral knee surgery (meniscus, femur fracture on right), 01-18-16 Joaquín-en-Y Gastric Bypass, EGD, colonoscopy, panniculectomy, total left knee replacement, surgery for shattered right scapula - has 2 plates and 9 screws. Past Anesthesia/Blood Transfusion Reactions: Family History of Problems w/ Anesthesia, Motion Sickness Additional Past Anesthesia/Blood Transfusion Reaction / Comment(s): Difficulty waking up, hx difficult intubation, "has gotten better since weight loss.". Grandmother has difficulty waking and also difficult intubation. Past Psychological History: Anxiety, Depression Smoking Status: Never smoker Past Alcohol Use History: Rare Past Drug Use History: Marijuana Additional Drug Use History / Comment(s): CBD gummy occasionally for anxiety. Aware no use 24 hrs prior to procedure. - Past Family History Mother Family Medical History: Cancer Additional Family Medical History / Comment(s): Breast cancer. Father Family Medical History: Cancer, CVA/TIA Additional Family Medical History / Comment(s): - stroke. Medications and Allergies Home Medications Medication Instructions Recorded Confirmed Type Levothyroxine Sodium [Synthroid] 150 mcg PO QAM 05/16/14 05/30/22 History Cetirizine HCl [Zyrtec] 10 mg PO DAILY 08/08/17 05/30/22 History Albuterol Inhaler [Ventolin Hfa 1 - 2 puff INHALATION Q6H PRN 08/25/18 05/30/22 History Inhaler] Fluticasone Propion/Salmeterol 1 inhalation PO Q12H 08/25/18 05/30/22 History [Advair 100-50 Diskus] Sertraline HCl [Zoloft] 150 mg PO QAM 08/25/18 05/30/22 History Omeprazole 40 mg PO DAILY #30 cap 08/27/18 05/30/22 Rx Losartan-Hctz 50-12.5 mg [Hyzaar 1 tab PO DAILY #0 10/06/19 05/30/22 Rx 50-12.5] traZODone HCL [Desyrel] 100 mg PO HS 10/08/19 05/30/22 History busPIRone HCL [Buspar] 30 mg PO BID 01/10/22 05/30/22 History Gabapentin 900 mg PO TID PRN 05/24/22 05/30/22 History Oxybutynin Chloride [Ditropan XL] 10 mg PO DAILY 05/24/22 05/30/22 History Allergies Allergy/AdvReac Type Severity Reaction Status Date / Time NSAIDS (Non-Steroidal Allergy Cannot Verified 05/30/22 12:38 Anti-Inflamma take due to Gastric Bypass Penicillins Allergy Unknown Verified 05/30/22 12:38 Childhood Surgical - Exam Vital Signs Temp Pulse Resp BP Pulse Ox 98.4 F 74 18 144/64 95 05/30/22 12:49 05/30/22 12:49 05/30/22 12:49 05/30/22 12:49 05/30/22 12:49 - General well developed, well nourished, no distress - Eyes PERRL - ENT normal pinna - Neck no masses - Respiratory normal expansion - Cardiovascular Rhythm: regular - Abdomen Abdomen: soft, non tender Assessment and Plan Assessment: GERD. We'll perform EGD. We'll perform screening colonoscopy.
[2022-05-30 14:23] VITALS: PULSE 76; RESP 16
--- NOTE | 2022-05-30 14:35 | P.OP ---
Date of Procedure: 05/30/22 Preoperative Diagnosis: GERD, screening colonoscopy Postoperative Diagnosis: Antral gastritis Normal colon Procedure(s) Performed: EGD Colonoscopy Anesthesia: JEFFERY Surgeon: Osman Lerner Pathology: other (Esophagus) Condition: stable Disposition: PACU Description of Procedure: The patient's placed on the endoscopy table in the lateral position. She received IV sedation. The gastro-/oropharynx passed in the esophagus and stomach. A shunt a previous gastric bypass. The gastrojejunostomy was visu alized. The gastric pouch. A slightly enlarged. There is no evidence of any inflammatory change the gastric pouch. There was no evidence of any inflammatory changes of gastrojejunostomy. GE junction was at 40 cm the distal esophagus mildly inflamed. Biopsies performed. The proximal esophagus appeared normal. Scope withdrawn for patient. Next digital rectal exam was performed. This revealed no ebonized. Flexible colonoscope was then placed patient anus and passed throughout the colon. The scope could not be placed in the cecum sigmoid tortuosity valve. Scope was then withdrawn. The visualized right colon, transverse colon and descending colon appeared normal. The sigmoid colon and rectum appeared normal. Scope withdrawn for patient.
[2022-05-30 14:40] VITALS: BP 134/83
== END 2022-05-30 15:21 | disposition home or self-care (01) ==
LOC: ORWHC2ENDO 12:17
PROVIDERS: ATTEND Surgery
DX: Z12.11 Encounter for screening for malignant neoplasm of colon (principal); K21.00 Gastro-esophageal reflux disease with esophagitis, without bleeding; K29.50 Unspecified chronic gastritis without bleeding; Z87.11 Personal history of peptic ulcer disease; J45.909 Unspecified asthma, uncomplicated; M79.7 Fibromyalgia; I10 Essential (primary) hypertension; M19.90 Unspecified osteoarthritis, unspecified site; E07.9 Disorder of thyroid, unspecified; Z90.49 Acquired absence of other specified parts of digestive tract; Z98.51 Tubal ligation status; Z79.890 Hormone replacement therapy; Z90.710 Acquired absence of both cervix and uterus; Z98.84 Bariatric surgery status; F32.A Depression, unspecified; F41.9 Anxiety disorder, unspecified; Z86.59 Personal history of other mental and behavioral disorders; Z80.3 Family history of malignant neoplasm of breast; Z82.3 Family history of stroke; Z79.51 Long term (current) use of inhaled steroids; Z79.899 Other long term (current) drug therapy; Z88.0 Allergy status to penicillin; F12.90 Cannabis use, unspecified, uncomplicated
CPT/HCPCS: 43239; J2704; J2001; G0121; 88305

== ENCOUNTER → 2024-01-26 | Outpatient (CLI) | payer OTHER ==
--- NOTE | 2024-01-26 11:27 | XR ---
EXAMINATION TYPE: XR chest 2V DATE OF EXAM: 01/26/2024 COMPARISON: NONE CLINICAL INDICATION: Female, 53 years old with history of PRE OP; , TECHNIQUE: XR chest 2V views of the chest. FINDINGS: The lungs are clear and there is no pneumothorax, pleural effusion, or focal pneumonia. Heart size normal and no overt failure. Osseous structures demonstrate hypertrophic and degenerative changes of the spine. Postsurgical change right scapula. Diffuse osteopenia and AC joint. Atherosclerotic change s. Hyperinflation suggests COPD. Surgical clips upper abdomen. IMPRESSION: 1. No acute process. [facility], , 01/26/2024 11:24 AM
== END | disposition home or self-care (01) ==
LOC: LABPAT 10:10
PROVIDERS: ATTEND Nurse Practitioner Gerontology
DX: Z01.818 Encounter for other preprocedural examination (principal); Z22.322 Carrier or suspected carrier of Methicillin resistant Staphylococcus aureus; G89.29 Other chronic pain; M17.32 Unilateral post-traumatic osteoarthritis, left knee; R79.1 Abnormal coagulation profile
CPT/HCPCS: 71046

== ENCOUNTER → 2024-01-26 | Outpatient (CLI) | payer OTHER ==
[2024-01-26 11:29] LABS: Partial Thromboplastin Time 24.1 sec (22.0-30.0)
[2024-01-26 15:11] LABS: Basophils # (A) 0.07 X 10*3/uL (0.00-0.10); Basophils % (A) 0.6 %; Eosinophils # (A) 0.06 X 10*3/uL (0.04-0.35); Eosinophils % (A) 0.5 %; HCT 43.4 % (37.2-46.3); Lymphocytes # (A) 1.21 X 10*3/uL (0.90-5.00); Lymphocytes % (A) 10.8 %; MCH 28.6 pg (27.0-32.0); MCHC 32.3 g/dL (32.0-37.0); MCV 88.6 FL (80.0-97.0); Mean Platelet Volume 9.7 FL (9.5-12.2); Monocytes # (A) 0.63 X 10*3/uL (0.20-1.00); Monocytes % (A) 5.6 %; NRBC Per 100 WBC 0 X 10*3/uL (0.00-0.01); Neutrophils # (A) 9.24 X 10*3/uL (1.80-7.70); Neutrophils % (A) 82.2 %; Platelet Count 401 X 10*3/uL (140-440); RDW 15.7 % (11.5-14.5); WBC 11.24 X 10*3/uL (4.50-10.00)
[2024-01-26 15:28] LABS: ALT 16 U/L (8-44); AST 26 U/L (13-35); Albumin 4.7 g/dL (3.8-4.9); Albumin/Globulin Ratio 1.52 Ratio (1.60-3.17); Alkaline Phosphatase 64 U/L (41-126); Blood Urea Nitrogen 23.2 mg/dL (9.0-27.0); C Reactive Protein <0.30 mg/dL (0.00-0.80); Calcium 10.2 mg/dL (8.7-10.3); Carbon Dioxide 25.5 mmol/L (21.6-31.8); Chloride 102 mmol/L (96-109); Globulin 3.1 g/dL (1.6-3.3); Glucose 105 mg/dL (70-110); Potassium 4.7 mmol/L (3.5-5.5); Sodium 141 mmol/L (135-145); Total Bilirubin 0.5 mg/dL (0.3-1.2); Total Protein 7.8 g/dL (6.2-8.2)
[2024-01-26 15:59] LABS: Prothrombin Time 10.6 sec (10.0-12.5)
[2024-01-26 17:36] LABS: Erythrocyte Sedimentation Rate 34 mm/Hr (0-30)
== END | disposition home or self-care (01) ==
LOC: LABPAT 10:07
PROVIDERS: ATTEND Orthopaedic Surgery
DX: Z01.818 Encounter for other preprocedural examination (principal); Z22.322 Carrier or suspected carrier of Methicillin resistant Staphylococcus aureus
CPT/HCPCS: 80053; 85025; 85610; 85652; 85730; 86140; 87070; 93005

== ENCOUNTER 2024-02-06 11:00 | Inpatient (IN) | payer MEDICARE, OTHER ==
[~2024-02-06 11:00] MED LIST changes: -LACTATED RINGERS 1,000 ML IV SCH; -LIDOCAINE 1% (10MG/ML) FOR IV START INTRADERMA PRN; +TRANEXAMIC 1,000 MG/100ML-NACL 1,000 MG in SALINE 1 100ML.BAG IVPB PRN
[2024-02-06] MEDS: GABAPENTIN 300 MG CAP PO PRN (12:37)
[2024-02-06] MEDS: ACETAMINOPHEN TAB 500 MG TAB PO PRN (12:38)
[2024-02-06] MEDS: ONDANSETRON 4 MG/2 ML VIAL IVP ONE (12:55)
[2024-02-06] MEDS: LACTATED RINGERS 1,000 ML IV SCH (12:55)
[2024-02-06] MEDS: DEXAMETHASONE SOD PHOSPHATE 4 MG/ML 1 ML VIAL IV ONE (12:56)
[2024-02-06] MEDS: IV FLUID CONTINUATION 1,000 ML IV ONE (13:01)
[2024-02-06] MEDS: MIDAZOLAM 2 MG/2 ML VIAL IV ONE (13:16)
[2024-02-06] MEDS ORDERED: MAGNESIUM HYDROXIDE 2,400 MG/30 ML CUP PO PRN (13:39)
[2024-02-06] MEDS ORDERED: NA PHOS,M-B/NA PHOS,DI-BA 133 ML ENEMA RECTAL PRN (13:39)
[2024-02-06] MEDS ORDERED: HYDROmorphone 0.5 MG/0.5 ML SYRINGE IVP PRN (13:39)
[2024-02-06] MEDS ORDERED: bisacodyL 10 MG SUPP RECTAL PRN (13:39)
[2024-02-06] MEDS ORDERED: NALOXONE 0.4 MG/ML 1 ML VIAL IV PRN (13:39)
[2024-02-06] MEDS ORDERED: HYDROcodone/APAP 7.5-325MG 1 EACH TAB PO PRN (13:41)
--- NOTE | 2024-02-06 13:55 | P.ANPRN ---
Procedure Note - Anesthesia - Nerve Block Performed Left Adductor Canal Infusion Time Out Performed: Yes Date of Procedure: 02/06/24 Procedure Start Time: 13:13 Procedure Stop Time: :28 Location of Patient: PreOp Indication: Acute Post-Operative Pain, Requested by Surgeon Sedation Type: Sedate with meaningful contact maintained Preparation: Sterile Prep, Sterile Dressing Position: Supine Catheter: Indwelling Needle Types: Pajunk Needle Gauge: 21 Ultrasound used to visualize needle placement: Yes Ultrasound used to observe medication spread: Yes Blood Aspirated: No Pain Paresthesia on Injection Noted: No Resistance on Injection: Normal Image Stored and Saved: Yes Events: Uneventful and Well Tolerated (Ropivacaine 0.5% 20 cc plus dexamethasone 4 mg)
--- NOTE | 2024-02-06 13:57 | P.ANPRN ---
Procedure Note - Anesthesia - Nerve Block Performed Left iPack Single Time Out Performed: Yes Date of Procedure: 02/06/24 Procedure Start Time: : Procedure Stop Time: : Location of Patient: PreOp Indication: Acute Post-Operative Pain, Requested by Surgeon Sedation Type: Sedate with meaningful contact maintained Preparation: Sterile Prep Position: Supine Needle Types: Pajunk Needle Gauge: 21 Ultrasound used to visualize needle placement: Yes Ultrasound used to observe medication spread: Yes Blood Aspirated: No Pain Paresthesia on Injection Noted: No Resistance on Injection: Normal Image Stored and Saved: Yes Events: Uneventful and Well Tolerated (Ropivacaine 0.5% 20 cc plus dexamethasone 4 mg)
[2024-02-06] MEDS ORDERED: LIDOCAINE 1% INJ 10MG/ML (20 ML MDV) ONE (14:12)
[2024-02-06] MEDS ORDERED: ROCURONIUM 10 MG/ML (5 ML VIAL) IV ONE (14:12)
[2024-02-06] MEDS ORDERED: MIDAZOLAM 2 MG/2 ML VIAL ONE (14:12)
[2024-02-06] MEDS ORDERED: HYDROmorphone (PF) 1 MG/ML ONE (14:12)
[2024-02-06] MEDS ORDERED: fentaNYL (PF) 50 MCG/ML 2 ML AMP ONE (14:12)
[2024-02-06] MEDS ORDERED: KETAMINE HCL IN 0.9 % NACL 50 MG/5 ML SYRINGE ONE (14:12)
[2024-02-06] MEDS ORDERED: SUCCINYLCHOLINE CHLORIDE 200 MG/10 ML VIAL IV ONE (14:12)
[2024-02-06] MEDS ORDERED: PROPOFOL 10 MG/ML 20 ML VIAL IV ONE (14:12)
[2024-02-06] MEDS ORDERED: GLYCOPYRROLATE 0.2 MG/ML 2 ML VIAL ONE (14:12)
[2024-02-06] MEDS ORDERED: ePHEDrine 50 MG/ML 1 ML VIAL ONE (14:12)
[2024-02-06] MEDS ORDERED: DEXAMETHASONE SOD PHOSPHATE 4 MG/ML 1 ML VIAL ONE (14:12)
[2024-02-06] MEDS ORDERED: NEOSTIGMINE 1 MG/ML 10 ML VIAL ONE (14:12)
[2024-02-06] MEDS ORDERED: ROPIVACAINE 5 MG/ML 30 ML VIAL ONE (14:12)
[2024-02-06] MEDS ORDERED: diphenhydrAMINE 50 MG/ML 1 ML VIAL ONE (14:12)
[2024-02-06] MEDS: ceFAZolin 1,000 MG in SODIUM CHLORIDE 0.9% 1,000 ML IRRIGATION ONE (14:14)
--- NOTE | 2024-02-06 16:03 | P.OP ---
Date of Procedure: 02/06/24 Preoperative Diagnosis: Ligamentous instability left total knee Postoperative Diagnosis: Ligamentous instability left total knee Procedure(s) Performed: Revision left total knee arthroplasty Implants: [employer] Oxinium constrained femoral component size 4, left [employer] Legion press-fit stem, straight 15 mm x 160 mm [employer] legion revision tibial baseplate size 4, left [employer] femoral L-wedge 10 mm distal, 5 mm posterior [employer] press-fit stem, straight 13 mm x 160 mm [employer] Caroline II constrained articular insert size 3-4, 15 mm All components were cemented using Simple P bone cement with tobramycin x 2 The articulation is Oxinium on polyethylene. Anesthesia: spinal Surgeon: Casey Fofana [employer]: Lilibeth Lai Estimated Blood Loss (ml): 40 Pathology: none sent Condition: stable Disposition: PACU Indications for Procedure: The patient has had a total knee arthroplasty on October [address] He. She is had a recent fall and has significant ligamentous instability of her left knee. Conservative management has failed. The operation of revision knee replacement has been discussed at length in the office, as well as potential risks and complications. These are inclusive of, but not limited to: Infection, bleeding, scarring, discomfort, stiffness, blood vessel and nerve damage, need for further surgery, failure to relieve symptoms, persistence, recurrence, or worsening of problems, loosening, dislocation, wear, blood clot, pulmonary embolism, , gait dysfunction, stiffness, and other risks as discussed in the office. Patient elects to proceed and the consent form has been signed. Operative Findings: The operative findings are consistent with global ligamentous instability of the left total knee Description of Procedure: Patient was seen in the preoperative area consent was reviewed and operative site was marked with a skin marker. An adductor canal pain catheter was placed by anesthesia in the preoperative area. Patient was then brought to the operating room and given preoperative antibiotics intravenously. A general anesthetic was administered by the anesthesia department. A tourniquet was placed on the upper thigh and the lower extremity was prepped and draped in usual sterile fashion. A gram of transexamic acid was given. A universal timeout was then performed which confirmed the patient's name, surgical site, ALLERGIES, and consent. The knee was then examined and found to have significant medial, lateral and anterior-posterior instability in both flexion and extension. The lower extremity was then exsanguinated and tourniquet was inflated to 250 mmHg. A standard and anterior midline approach to the knee was performed. The skin and subcutaneous tissue was dissected down to the patellar tendon, with the prior scar being excised. A medial parapatellar arthrotomy was then performed. The knee was then extended, the patellar was everted, and the knee was again flexed. The components were then inspected and found to be well fixed. Next, using a small sagittal saw, the implant-cement interface was disrupted from both the femur and the tibia. Then an osteotome was used to remove the femoral and tibial components with minimal bone loss. Attention was redirected to the femur. Sequential reaming of the femoral canal was performed until good cortical fit. The distal cutting guide was then placed over the reamer the distal femur cut was performed. Next the 4-in-1 cutting block was placed over the reamer and the appropriate cuts were performed. The cutting block and reamer were then removed and the femoral trial was placed. The bone was then removed for the box. Femoral trial was then removed. Attention was then redirected to the tibia. Sequential reaming of the tibial canal was performed until good cortical fit. The intramedullary proximal tibial cutting guide was then placed over the reamer, the proximal tibia was cut. The tibia was sized. The proximal tibia was then prepared. Trials were then placed with the appropriate-sized constrained liner. The knee was able to fully extend and flex to 125 and was stable throughout all range of motion. Trials were then removed. The cut surfaces of bone were then irrigated with pulsatile lavage. The knee was also irrigated with Irrisept solution. The components were then opened, the cement was mixed, and the components were then cemented in place. The cement was allowed to harden with the knee in full extension. After the cemented hardened. The tourniquet was released, and hemostasis was obtained. A second gram of transexamic acid was given. The knee was again irrigated. The knee was again taken through range of motion and found to be stable throughout all range of motion of 0-115. The fascia was then closed with #2 strata fix suture. The subcutaneous tissue was closed with 3-0 Vicryl and 3-0 monocryl. Exofin glue was used for the skin and placed with the knee in flexion. The patient was placed in a sterile silver dressing. Patient was then transferred to recovery room in stable condition. The occupational therapy assistant SENTHIL Gavin was required due the complexity surgery and the need for a skilled laboratory chemical assistant. She assisted in positioning, draping, retraction, and closure of the wound.and closure of the wound.
[2024-02-06] MEDS: HYDROmorphone 0.5 MG/0.5 ML SYRINGE IVP PRN (16:49)
--- NOTE | 2024-02-06 17:31 | XR ---
EXAMINATION TYPE: XR knee limited LT DATE OF EXAM: 02/06/2024 5:22 PM COMPARISON: 10/03/2019 CLINICAL INDICATION: Female, 53 years old with history of Evaluation for Postop abnormality and align ment; [facility] TECHNIQUE: XR knee limited LT XX views submitted. FINDINGS: Status post total knee arthroplasty revision changes with hardware in appropriate alignme nt and intact. No evidence of fracture. Subcutaneous lucencies and lucencies within the joint consist ent with surgical changes. IMPRESSION: Status post total knee arthroplasty changes with hardware intact and appropriate alignment. No fractu res identified. [facility], , 02/06/2024 5:28 PM
[2024-02-06] MEDS: [UNRECOGNIZED DRUG - REMARK] MISCELLANE ONE (17:49)
[2024-02-06] MEDS: SODIUM CHLORIDE 0.9% 1,000 ML IV SCH (17:49)
[2024-02-06] MEDS: HYDROmorphone 1 MG/ML 1 ML SYRINGE IVP PRN (18:20)
[2024-02-06] MEDS: HYDROcodone/APAP 7.5-325MG 1 EACH TAB PO PRN (19:38)
[2024-02-06] MEDS: SENNOSIDES-DOCUSATE SODIUM 1 EACH TAB PO SCH (21:27)
--- NOTE | 2024-02-07 04:46 | P.CONS ---
History of Present Illness - Reason for Consult Consult date: 02/07/24 - History of Present Illness Patient is a 53-year-old female with a PMH of A-fib on Eliquis, hypothyroidism, hypertension, hyperlipidemia who was admitted for a scheduled left total knee replacement. The patient underwent the procedure earlier today and was seen postoperatively on the surgical unit. She reported ongoing 3 out of 10 pain of the left knee but had no additional complaints. Patient did report experiencing a fall several days ago which resulted in facial bruising. Denied experiencing chest discomfort, shortness breath, fever, chills, cough, nausea, vomiting, abdominal pain, diarrhea. Review of systems: Pertinent positives and negatives as discussed in HPI, a complete review of systems was performed and all other systems are negative. Physical examination: Vital signs reviewed General: non toxic, no distress, appears at stated age, normal weight Derm: no unusual rashes/lesions, warm Head: atraumatic, normocephalic, symmetric Eyes: EOMI, periorbital ecchymosis noted, no lid lag, anicteric sclera, pupils equal round reactive to light ENT: Nose and ears atraumatic Neck: No cervical lymphadenopathy, trachea midline, supple Mouth: no lip lesion, mucus membranes moist Cardiovascular: S1S2 reg, no murmur, positive dorsalis pedis pulse bilateral, no edema Lungs: CTA bilateral, no rhonchi, no rales, no accessory muscle use Abdominal: soft, nontender to palpation, no guarding Ext: muscle strength 5 out of 5 in all 4 extremities grossly except for left lower leg due to surgery with dressing in place over knee, no gross muscle atrophy, no contractures, Neuro: CN II-XI grossly intact, no gross focal neuro deficits Psych: Alert, oriented, appropriate affect Assessment: Status post left total knee replacement Chronic conditions: A-fib, hypothyroidism, hypertension, hyperlipidemia Plan: Resume patient's home medications with the exception of Eliquis Defer the resumption of Eliquis to primary surgery service Defer pain management and DVT prophylaxis to primary surgery service We appreciate this opportunity to be involved in this patient's care. We will follow the patient with you. For any further questions, please not hesitate to contact the sound inpatient team. Past Medical History Past Medical History: Asthma, Chest Pain / Angina, Fibromyalgia, GERD/Reflux, GI Bleed, Hypertension, Liver Disease, Musculoskeletal Disorder, Osteoarthritis (OA), Skin Disorder, Sleep Apnea/CPAP/BIPAP, Thyroid Disorder Additional Past Medical History / Comment(s): Degenerative Disc Disease w/ chronic back pain. Hx of fatty liver. Torn Lt Rotator cuff 2016-never has had surg.. Hx fall 07/2018, with fractured nose and brain bleed. Hx GI bleed after taking Motrin. "Cardiac incident in 2016, that's all they told me." , hx. e czema, frequent itching, sleep apnea resolved w/weight loss after bariatric surg. History of Any Multi-Drug Resistant Organisms: None Reported Past Surgical History: Appendectomy, Bariatric Surgery, Bladder Surgery, Cholecystectomy, Heart Catheterization, Hysterectomy, Joint Replacement, Orthopedic Surgery, Tubal Ligation Additional Past Surgical History / Comment(s): Partial thyroidectomy, bladder suspension w/mesh (has since undergone sx 4X for excision of mesh), sinus repair surgery, bilateral knee surgery (meniscus, femur fracture on right), 01-18-16 Jo[place]-en-Y Gastric Bypass, EGD, colonoscopy, panniculectomy, total left knee replacement, right knee replaced, surgery for shattered right scapula - has 2 plates and 9 screws. Past Anesthesia/Blood Transfusion Reactions: Previous Problems w/ Anesthesia, Family History of Problems w/ Anesthesia, Motion Sickness, Postoperative Nausea & Vomiting (PONV) Additional Past Anesthesia/Blood Transfusion Reaction / Comm: Difficulty waking up, hx difficult intubation, "has gotten better since weight loss.". Grandmother has difficulty waking and also difficult intubation. Smoking Status: Vaper - Past Family History Mother Family Medical History: Cancer Additional Family Medical History / Comment(s): Breast cancer. Father Family Medical History: Cancer, CVA/TIA Additional Family Medical History / Comment(s): - stroke. Medications and Allergies Home Medications Medication Instructions Recorded Confirmed Type Levothyroxine Sodium [Synthroid] 75 mcg PO QAM 05/16/14 02/06/24 History Cetirizine HCl [Zyrtec] 10 mg PO DAILY 08/08/17 02/06/24 History Albuterol Inhaler [Ventolin Hfa 1 - 2 puff INHALATION Q6H PRN 08/25/18 02/06/24 History Inhaler] Fluticasone Propion/Salmeterol 1 inhalation PO Q12H PRN 08/25/18 02/06/24 History [Advair 100-50 Diskus] Sertraline HCl [Zoloft] 100 mg PO QAM 08/25/18 02/06/24 History Omeprazole 40 mg PO DAILY #30 cap 08/27/18 02/06/24 Rx Losartan-Hctz 50-12.5 mg [Hyzaar 1 tab PO DAILY #0 10/06/19 02/06/24 Rx 50-12.5] traZODone HCL [Desyrel] 150 mg PO HS 10/08/19 02/06/24 History busPIRone HCL [Buspar] 15 mg PO BID 01/10/22 02/06/24 History oxyBUTYnin chloride [Ditropan XL] 10 mg PO DAILY 05/24/22 02/06/24 History Calcium Carbonate/Vitamin D3 1 each PO DAILY 01/31/24 02/06/24 History [Calcium 500 mg-Vit D3 5 mcg (200 Unit)] Gabapentin [Neurontin] 1,200 mg PO TID PRN 01/31/24 02/06/24 History amLODIPine [Norvasc] 5 mg PO DAILY 01/31/24 02/06/24 History hydrOXYzine HCL [Atarax] 25 mg PO TID PRN 01/31/24 02/06/24 History rOPINIRole HCL [Requip] 0.25 mg PO DIRECTED PRN 01/31/24 02/06/24 History Apixaban [Eliquis] 2.5 mg PO BID 30 Days #60 tab 02/06/24 Rx HYDROcodone/APAP 7.5-325MG [[place] 1 - 2 tab PO Q6H PRN #32 tab 02/06/24 Rx 7.5-325] Sennosides [Senokot] 2 tab PO DAILY PRN #60 tablet 02/06/24 Rx Allergies Allergy/AdvReac Type Severity Reaction Status Date / Time NSAIDS (Non-Steroidal Allergy Cannot Verified 02/06/24 12:17 Anti-Inflamma take due to Gastric Bypass Penicillins Allergy Unknown Verified 02/06/24 12:17 Childhood Physical Exam Vitals: Vital Signs Temp Pulse Resp BP Pulse Ox 02/07/24 00:55 98.3 F 65 15 125/79 94 L 02/06/24 18:50 73 150/76 94 L 02/06/24 18:35 90 155/92 95 02/06/24 18:20 87 150/91 95 02/06/24 18:05 89 148/88 95 02/06/24 17:50 97.8 F 90 18 152/84 95 02/06/24 17:22 85 13 158/80 94 L 02/06/24 17:07 92 21 149/82 97 02/06/24 16:52 88 17 158/84 97 02/06/24 16:37 97.7 F 74 23 148/84 98 02/06/24 13:40 64 18 138/72 97 02/06/24 12:33 98.6 F 74 18 119/67 95 Intake and Output 02/06/24 02/06/24 02/07/24 14:59 22:59 06:59 Intake Total 751 2149 Output Total 40 Balance 751 2109 Intake: IV 751 1499 Oral 650 Output: Estimated Blood Loss 40 Other: Voiding Method Toilet # Voids 1 Weight 81.3 kg
[2024-02-07] MEDS: LEVOTHYROXINE 75 MCG TAB PO SCH (06:04)
--- NOTE | 2024-02-07 06:43 | P.PN ---
Progress Note - Text Progress Note Date: 02/07/24 Postoperative day # 1 status post total knee arthroplasty, and adductor canal catheter placed for postoperative analgesia, currently at ropivacaine 0.2% 8 mL per hour and continuous infusion, visual analogue scale is 3-4/10, patient using oral pain medication for breakthrough pain. Assessment and plan= Acute postoperative pain, adductor canal catheter for pain control, pain is well controlled we'll continue the same management.
[2024-02-07] MEDS ORDERED: ALBUTEROL NEBULIZED 2.5 MG/3 ML INHALATION PRN (07:55)
[2024-02-07] MEDS ORDERED: SYMBICORT 80-4.5 MCG INHALER INHALATION PRN (07:55)
[2024-02-07 08:21] LABS: African American GFR (CKD) >90 (>60 ml/min/1.73 sqM); Anion Gap 6 mmol/L; Blood Urea Nitrogen 8 mg/dL (7-17); Calcium 8.5 mg/dL (8.4-10.2); Carbon Dioxide 23 mmol/L (22-30); Chloride 103 mmol/L (98-107); Glucose 93 mg/dL (74-99); Magnesium 1.9 mg/dL (1.6-2.3); Non-African American GFR(CKD) >90 (>60 ml/min/1.73 sqM); Potassium 4.2 mmol/L (3.5-5.1); Sodium 132 mmol/L (137-145)
[2024-02-07] MEDS: ONDANSETRON 4 MG/2 ML VIAL IVP PRN (08:37)
[2024-02-07] MEDS: busPIRone HCl 5 MG TAB PO SCH (08:37)
[2024-02-07] MEDS: SERTRALINE 100 MG TAB PO SCH (08:37)
[2024-02-07] MEDS: APIXABAN 2.5 MG TABLET PO SCH (08:38)
[2024-02-07] MEDS: LORATADINE 10 MG TAB PO SCH (08:38)
[2024-02-07] MEDS: amLODIPine 5 MG TAB PO SCH (08:38)
[2024-02-07] MEDS: LOSARTAN-HCTZ 50-12.5 MG 1 EACH TAB PO SCH (08:39)
[2024-02-07] MEDS: OXYBUTYNIN 10 MG TAB.ER.24 PO SCH (08:39)
[2024-02-07 08:46] LABS: Basophils # (A) 0.02 X 10*3/uL (0.00-0.10); Basophils % (A) 0.2 %; Eosinophils # (A) 0.01 X 10*3/uL (0.04-0.35); Eosinophils % (A) 0.1 %; HCT 32.5 % (37.2-46.3); HGB 10.5 g/dL (12.0-15.0); Lymphocytes % (A) 12.1 %; MCH 29.2 pg (27.0-32.0); MCHC 32.3 g/dL (32.0-37.0); MCV 90.3 FL (80.0-97.0); Mean Platelet Volume 9.7 FL (9.5-12.2); Monocytes # (A) 0.65 X 10*3/uL (0.20-1.00); Monocytes % (A) 7.9 %; NRBC Per 100 WBC 0 X 10*3/uL (0.00-0.01); Neutrophils # (A) 6.53 X 10*3/uL (1.80-7.70); Neutrophils % (A) 79.3 %; Platelet Count 184 X 10*3/uL (140-440); RDW 14.4 % (11.5-14.5); WBC 8.24 X 10*3/uL (4.50-10.00)
[2024-02-07] MEDS ORDERED: hydrOXYzine HCL 25 MG TAB PO PRN (09:00)
[2024-02-07] MEDS ORDERED: GABAPENTIN 400 MG CAP PO PRN (09:00)
[2024-02-07] MEDS: ACETAMINOPHEN IV (For NPO) 1,000 MG in EMPTY BAG 1 BAG IVPB SCH (11:22)
--- NOTE | 2024-02-07 13:34 | CT ---
EXAMINATION TYPE: CT brain wo con, CT facial bones wo con CT DLP: 1220.4 mGycm, Automated exposure control for dose reduction was used. DATE OF EXAM: 02/07/2024 1:19 PM COMPARISON: None. Prior CT Brain from . CLINICAL INDICATION:Female, 53 years old with history of increased pain to face and head since fall 1 04/03, Increased pain to face and head since fall 02/02/24 (accession [id number]), Increased pain to hea d and face since fall 02/02/24 (accession [id number]) TECHNIQUE: Brain: Multiple axial CT images of the brain and facial bones were obtained without IV contrast. . Co laverne and sagittal reformats reviewed. FINDINGS: Brain: Extra-axial spaces: No abnormal extra-axial fluid collections. Ventricular system: Within normal limits Cerebral parenchyma: No acute intraparenchymal hemorrhage or mass effect. The lamas-white junction is well differentiated. Cerebellum: Unremarkable. Mass effect: No evidence of midline shift. Intracranial vasculature: unremarkable Soft tissues: Right forehead soft tissue contusion. Calvarium/osseous structures: Dental amalgam creates streak artifact which limits evaluation. No depr essed skull fracture. Age indeterminate minimally depressed right nasal bone fracture. No surrounding soft tissue swelling. The temporal-mandibular joints appear symmetric. Paranasal sinuses and mastoid air cells: The left mastoid air cells are clear. Minimal ossification o f the inferior right mastoid air cells. Minimal mucosal retention cyst within the inferior right maxi llary sinus. The remaining paranasal sinuses are clear. Hypoplasia of the left frontal sinus. Visualized orbits: Orbital contents are intact. Calcification along the posterior right sclera. IMPRESSION: 1. No acute intracranial process. 2. Age-indeterminate minimally depressed right nasal bone fracture. No surrounding soft tissue swelli ng. 3. Small right forehead soft tissue contusion. [facility], , 02/07/2024 1:31 PM
--- NOTE | 2024-02-07 15:31 | P.PN ---
Subjective Progress Note Date: 02/07/24 Hospital course: Patient is a pleasant 53-year-old female past medical history of hypertension, hypothyroidism status post partial thyroidectomy, asthma/COPD, GERD status post bariatric surgery, and anxiety with depression. She is currently admitted under orthopedic surgery team status post revision of left total knee arthroplasty. We were consulted for medical management throughout hospitalization. Physical exam: Patient seen and fully evaluated at bedside this morning. She reports moderate pain to left knee as well as headache and pain to bridge of nose status post reports of recent fall on 02/02/2024. Vital signs reviewed and stable. General: Nontoxic, no distress and appears stated age. Derm: Skin warm and dry, normal coloration for ethnicity. Head: Normocephalic and symmetric. Patient with periorbital ecchymosis and bruising to right forehead with small laceration over right brow ridge. Eyes: EOM's intact, no lid lag, and anicteric sclera Mouth: no lip lesions, mucus membranes moist Cardiovascular: regular rate and rhythm with normal S1S2, no murmur, positive posterior tibial pulses bilaterally, and cap refill < 2 seconds. Lungs: Respirations even, regular, and unlabored on room air. Lungs CTA bilaterally, no rhonchi, no rales, no wheezing, and no accessory muscle usage. Abdominal: soft, nontender to palpation, no guarding, no appreciable organomegaly Ext: Movement and sensation intact. No gross muscle atrophy, no edema, no contractures. Postoperative dressing/Lawson wrap in place to left knee. Neuro: Speech clear, face symmetrical and CN II-XII grossly intact with no noted focal neuro deficits Psych: Alert and oriented to person, place, time, and situation. Appropriate and pleasant affect. Assessment and Plan of Care: Status post revision of left knee arthroplasty -Management per primary admitting orthopedic surgery team including DVT prophylaxis, pain management, wound/dressing management, weightbearing, and PT/OT. Headache and facial pain status posttraumatic fall on 02/02/2024 -Order placed for CT head and face. -Continue symptomatic care and pain management. -Maintain fall precautions. Hypertension -Monitor vital signs and continue daily medication regimen with amlodipine 5 mg daily and losartan/hydrochlorothiazide 50-12.5 mg daily. Hypothyroidism -Continue daily medication regimen with levothyroxine 75 mcg daily. Anxiety with depression -Continue daily medication regimen with trazodone 150 mg nightly, sertraline 100 mg daily, and BuSpar 15 mg twice daily. Fibromyalgia Chronic pain -Continue daily medication regimen with gabapentin 1200 mg 3 times daily and Requip 0.25 mg daily as needed. Data and imaging reviewed: -Postoperative labs reviewed. CBC showing acute blood loss anemia with hemoglobin of 10.5 and preoperative hemoglobin of 14.0 on 01/26/2024. BMP showing mild hyponatremia with sodium of 132 otherwise normal findings. Magnesium 1.9. -Vital signs reviewed. Blood pressure 160/91, heart rate 69, respiratory rate 17, temp 98.0 F, and SpO2 of 97% on room air. Thank you for allowing us to participate in the care of this pleasant patient. Do not hesitate to contact us with questions. Someone can be reached from the [facility] hospitalist group all hours of the day at [phone] or via [employer]. Patient was seen independently by Nurse Pracitioner. This document was prepared using dotCloud dictation software. Please allow for errors in tailman, while rare they do occur. Dylan Levin NP rendered care for this patient independently, reviewed the findings and plan as documented in the note above and agree with plan. I did not physically speak with or examine the patient on this date. Objective - Vital Signs Vital signs: Vital Signs Temp 97.7 F 02/07/24 14:00 Pulse 74 02/07/24 14:00 Resp 17 02/07/24 14:00 BP 139/84 02/07/24 14:00 Pulse Ox 94 L 02/07/24 14:00 FiO2 Intake & Output 02/06/24 02/07/24 02/07/24 18:59 06:59 18:59 Intake Total 2250 1730 200 Output Total 40 Balance 2210 1730 200 Weight 81.3 kg Intake: IV 2250 Oral 1730 200 Output: Estimated Blood Loss 40 Other: Voiding Method Toilet # Voids 5 1 - Labs CBC & Chem 7: 02/07/24 05:55 02/07/24 05:55 Labs: Abnormal Lab Results - Last 24 Hours (Table) 02/07/24 02/07/24 Range/Units 05:55 05:55 RBC 3.60 L (4.10-5.20) X 10*6/uL Hgb 10.5 L (12.0-15.0) g/dL Hct 32.5 L (37.2-46.3) % Eosinophils # 0.01 L (0.04-0.35) X 10*3/uL Sodium 132 L (137-145) mmol/L
[2024-02-07] MEDS: CYCLOBENZAPRINE 10 MG TAB PO PRN (16:26)
[2024-02-07] MEDS: traZODone HCL 50 MG TAB PO SCH (20:26)
[2024-02-08] MEDS: HYDROmorphone 0.5 MG/0.5 ML SYRINGE IVP PRN (06:09)
[2024-02-08 08:43] LABS: HCT 29.7 % (37.2-46.3); HGB 9.5 g/dL (12.0-15.0); MCH 29.2 pg (27.0-32.0); MCV 91.4 FL (80.0-97.0); Mean Platelet Volume 9.8 FL (9.5-12.2); NRBC Per 100 WBC 0 X 10*3/uL (0.00-0.01); Platelet Count 156 X 10*3/uL (140-440); RBC 3.25 X 10*6/uL (4.10-5.20); RDW 14.6 % (11.5-14.5); WBC 5.01 X 10*3/uL (4.50-10.00)
[2024-02-08 08:51] LABS: Blood Urea Nitrogen 5.1 mg/dL (9.0-27.0); Calcium 8.2 mg/dL (8.7-10.3); Carbon Dioxide 22.9 mmol/L (21.6-31.8); Chloride 105 mmol/L (96-109); Glucose 95 mg/dL (70-110); Magnesium 1.8 mg/dL (1.5-2.4); Potassium 3.7 mmol/L (3.5-5.5); Sodium 138 mmol/L (135-145)
--- NOTE | 2024-02-08 10:15 | P.PN ---
Subjective Progress Note Date: 02/07/24 This is a 53-year-old female who is status post revision left total knee arthroplasty. This is postoperative day #1 and patient is seen and evaluated at bedside today. Patient states that her knee is very sore today and she has been icing and elevating the knee. Objective - Vital Signs Vital signs: Vital Signs Temp 98.0 F 02/07/24 07:30 Pulse 69 02/07/24 07:30 Resp 17 02/07/24 07:30 BP 160/91 02/07/24 07:30 Pulse Ox 97 02/07/24 07:30 FiO2 Intake & Output 02/06/24 02/07/24 02/07/24 18:59 06:59 18:59 Intake Total 2250 1730 200 Output Total 40 Balance 2210 1730 200 Weight 81.3 kg Intake: IV 2250 Oral 1730 200 Output: Estimated Blood Loss 40 Other: Voiding Method Toilet # Voids 5 - Exam Vital signs are stable. Patient is in no acute distress and is alert and oriented 3. Calf is soft and nontender to palpation. Dressing is clean, dry, and intact. Patient has full foot and ankle motion without pain or difficulty. Sensation intact. Neurovascular status and circulatory status are intact. - Labs CBC & Chem 7: 02/08/24 02:54 02/08/24 02:54 Labs: Abnormal Lab Results - Last 24 Hours (Table) 02/07/24 02/07/24 Range/Units 05:55 05:55 RBC 3.60 L (4.10-5.20) X 10*6/uL Hgb 10.5 L (12.0-15.0) g/dL Hct 32.5 L (37.2-46.3) % Eosinophils # 0.01 L (0.04-0.35) X 10*3/uL Sodium 132 L (137-145) mmol/L Assessment and Plan (1) Status post revision of total replacement of left knee Current Visit: Yes Status: Acute Code(s): Z96.652 - PRESENCE OF LEFT ARTIFICIAL KNEE JOINT SNOMED Code(s): 775545826614268 Plan: #1 Continue with routine postoperative care and pain control, leave dressing in place for 7 days. Flexeril was added for pain today. Patient states that she is unable to take NSAIDs and aspirin due to history of gastric bypass. #2 Anticoagulation with Eliquis. #3 Physical therapy today. #4 Appreciate input from internal medicine. #5 Anticipate discharge home with home care in the next 24-48 hours.
--- NOTE | 2024-02-08 10:16 | P.PN ---
Subjective Progress Note Date: 02/08/24 This is a 53-year-old female who is status post revision left total knee arthroplasty. This is postoperative day #2 and patient is seen and evaluated at bedside today. Patient states that pain is still an issue. Patient states that she hasn't worked with physical therapy yet today. Objective - Vital Signs Vital signs: Vital Signs Temp 98.3 F 02/08/24 08:00 Pulse 83 02/08/24 08:00 Resp 14 02/08/24 08:00 BP 131/82 02/08/24 08:00 Pulse Ox 95 02/08/24 08:00 FiO2 Intake & Output 02/07/24 02/08/24 02/08/24 18:59 06:59 18:59 Intake Total 200 Balance 200 Intake: Oral 200 Other: Voiding Method Toilet Toilet # Voids 3 3 - Exam Vital signs are stable. Patient is in no acute distress and is alert and oriented 3. Calf is soft and nontender to palpation. Dressing is clean, dry, and intact. Patient has full foot and ankle motion without pain or difficulty. Sensation intact. Neurovascular status and circulatory status are intact. - Labs CBC & Chem 7: 02/08/24 02:54 02/08/24 02:54 Labs: Abnormal Lab Results - Last 24 Hours (Table) 02/08/24 02/08/24 Range/Units 02:54 02:54 RBC 3.25 L (4.10-5.20) X 10*6/uL Hgb 9.5 L (12.0-15.0) g/dL Hct 29.7 L (37.2-46.3) % RDW 14.6 H (11.5-14.5) % BUN 5.1 L (9.0-27.0) mg/dL BUN/Creatinine Ratio 8.50 L (12.00-20.00) Ratio Calcium 8.2 L (8.7-10.3) mg/dL Assessment and Plan (1) Status post revision of total replacement of left knee Current Visit: Yes Status: Acute Code(s): Z96.652 - PRESENCE OF LEFT ARTIFICIAL KNEE JOINT SNOMED Code(s): 279897492464967 Plan: #1 Continue with routine postoperative care and pain control, leave dressing in place for 7 days. [place] dose is increased today. Patient states that she is unable to take NSAIDs and aspirin due to history of gastric bypass. #2 Anticoagulation with Eliquis. #3 Physical therapy today. #4 Appreciate input from internal medicine. #5 Anticipate discharge home with home care in the next 24-48 hours.
[2024-02-08] MEDS: HYDROcodone/APAP 10-325MG 1 EACH TAB PO PRN (11:58)
--- NOTE | 2024-02-08 14:15 | P.PN ---
Subjective Progress Note Date: 02/08/24 Hospital course: Patient is a pleasant 53-year-old female past medical history of hypertension, hypothyroidism status post partial thyroidectomy, asthma/COPD, GERD status post bariatric surgery, and anxiety with depression. She is currently admitted under orthopedic surgery team status post revision of left total knee arthroplasty. We were consulted for medical management throughout hospitalization. Physical exam: Patient seen and fully evaluated at bedside this morning. She reports having continued moderate pain to left knee morning. She reports headache has resolve d. Discussed CT findings with patient regarding age indeterminant minimally depressed right nasal bone fracture with no surrounding soft tissue edema and patient reports history of nasal bone fracture in past. Patient nontender to nasal bridge on palpation. CT head and face otherwise negative for acute process showing no other fractures or abnormalities with exception of small right forehead soft tissue contusion. Vital signs reviewed and stable. General: Nontoxic, no distress and appears stated age. Derm: Skin warm and dry, normal coloration for ethnicity. Head: Normocephalic and symmetric. Patient with periorbital ecchymosis and bruising to right forehead with small laceration over right brow ridge. Eyes: EOM's intact, no lid lag, and anicteric sclera Mouth: no lip lesions, mucus membranes moist Cardiovascular: regular rate and rhythm with normal S1S2, no murmur, positive posterior tibial pulses bilaterally, and cap refill < 2 seconds. Lungs: Respirations even, regular, and unlabored on room air. Lungs CTA bilaterally, no rhonchi, no rales, no wheezing, and no accessory muscle usage. Abdominal: soft, nontender to palpation, no guarding, no appreciable organomegaly Ext: Movement and sensation intact. No gross muscle atrophy, no edema, no contractures. Postoperative dressing/Lawson wrap in place to left knee. Neuro: Speech clear, face symmetrical and CN II-XII grossly intact with no noted focal neuro deficits Psych: Alert and oriented to person, place, time, and situation. Appropriate and pleasant affect. Assessment and Plan of Care: Status post revision of left knee arthroplasty -Management per primary admitting orthopedic surgery team including DVT prophylaxis, pain management, wound/dressing management, weightbearing, and PT/OT. Headache and facial pain status post trip and fall on 02/02/2024 -CT head negative for acute intercranial process. CT face showing small right forehead soft tissue contusion and age-indeterminate minimally depressed right nasal bone fracture with no surrounding soft tissue swelling. -Continue symptomatic care and pain management. -Maintain fall precautions. Hypertension -Monitor vital signs and continue daily medication regimen with amlodipine 5 mg daily and losartan/hydrochlorothiazide 50-12.5 mg daily. Hypothyroidism -Continue daily medication regimen with levothyroxine 75 mcg daily. Anxiety with depression -Continue daily medication regimen with trazodone 150 mg nightly, sertraline 100 mg daily, and BuSpar 15 mg twice daily. Fibromyalgia Chronic pain -Continue daily medication regimen with gabapentin 1200 mg 3 times daily and Requip 0.25 mg daily as needed. Data and imaging reviewed: -CT head negative for acute intercranial process. CT face showing small right forehead soft tissue contusion and age-indeterminate minimally depressed right nasal bone fracture with no surrounding soft tissue swelling. -Vital signs reviewed. Blood pressure 131/82, heart rate 83, respiratory rate 14, temp 98.3 F, and SpO2 of 95% on room air. -Morning labs reviewed. CBC showing stable normocytic anemia with hemoglobin of 9.5. BMP unremarkable. Magnesium 1.8. Thank you for allowing us to participate in the care of this pleasant patient. Do not hesitate to contact us with questions. Someone can be reached from the [facility] hospitalist group all hours of the day at [phone] or via [employer]. Patient was seen independently by Nurse Pracitioner. This document was prepared using [employer] dictation software. Please allow for errors in peanut cleaner, while rare they do occur. Dylan Levin NP rendered care for this patient independently, reviewed the findings and plan as documented in the note above and agree with plan. I did not physically speak with or examine the patient on this date. Objective - Vital Signs Vital signs: Vital Signs Temp 97.9 F 02/08/24 01:20 Pulse 112 H 02/08/24 01:20 Resp 17 02/08/24 01:20 BP 133/76 02/08/24 01:20 Pulse Ox 96 02/08/24 01:20 FiO2 Intake & Output 02/07/24 02/08/24 02/08/24 18:59 06:59 18:59 Intake Total 200 Balance 200 Intake: Oral 200 Other: Voiding Method Toilet Toilet # Voids 3 3 - Labs CBC & Chem 7: 02/08/24 02:54 02/08/24 02:54 Labs: Abnormal Lab Results - Last 24 Hours (Table) 02/07/24 02/07/24 Range/Units 05:55 05:55 RBC 3.60 L (4.10-5.20) X 10*6/uL Hgb 10.5 L (12.0-15.0) g/dL Hct 32.5 L (37.2-46.3) % Eosinophils # 0.01 L (0.04-0.35) X 10*3/uL Sodium 132 L (137-145) mmol/L
[2024-02-08] MEDS: HYDROcodone/APAP 7.5-325MG 1 EACH TAB PO PRN (20:09)
--- NOTE | 2024-02-09 09:28 | P.DS ---
Providers Date of admission: 02/06/24 11:21 Expected date of discharge: 02/09/24 Attending physician: Casey Fofana Consults: 02/06/24 13:39 Consult Physician Routine Consulting Provider: Ham Parks Consult Reason/Comments: medical management Do you want consulting provider notified?: Yes Primary care physician: Stated None - Discharge Diagnosis(es) (1) Status post revision of total replacement of left knee Current Visit: Yes Status: Acute Hospital Course: This is a 53-year-old female who was last seen with complaint of continued left knee pain. 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 After discussion and consideration the patient elects to proceed with vision total left knee arthroplasty. The patient is seen preoperatively by her care physician and cleared for surgery. The patient is admitted to [facility] for total left knee arthroplasty. The procedures performed without complication or sequelae. He is doing well postoperatively. Vital signs are stable at discharge. Labs are stable at discharge. the patient is ambulating well with walker with minimal assistance. The patient is discharged to home on postop day # 3 pending medical clearance. Please see orders and refer to the med rec for accurate list of medications. Patient Condition at Discharge: Good Plan - Discharge Summary Discharge Rx Participant: Yes New Discharge Prescriptions: New HYDROcodone/APAP 10-325MG [Oakley 10-325] 1 tab PO Q6HR PRN #28 tab PRN Reason: Pain Apixaban [Eliquis] 2.5 mg PO BID 30 Days #60 tab Sennosides [Senokot] 2 tab PO DAILY PRN #60 tablet PRN Reason: Constipation Cyclobenzaprine [Flexeril] 10 mg PO TID PRN #21 tab PRN Reason: Muscle Spasm No Action Levothyroxine Sodium [Synthroid] 75 mcg PO QAM Cetirizine HCl [Zyrtec] 10 mg PO DAILY Sertraline HCl [Zoloft] 100 mg PO QAM Fluticasone Propion/Salmeterol [Advair 100-50 Diskus] 1 inhalation PO Q12H PRN PRN Reason: Shortness Of Breath Albuterol Inhaler [Ventolin Hfa Inhaler] 1 - 2 puff INHALATION Q6H PRN PRN Reason: Shortness Of Breath Omeprazole 40 mg PO DAILY #30 cap Losartan-Hctz 50-12.5 mg [Hyzaar 50-12.5] 1 tab PO DAILY #0 traZODone HCL [Desyrel] 150 mg PO HS busPIRone HCL [Buspar] 15 mg PO BID rOPINIRole HCL [Requip] 0.25 mg PO DIRECTED PRN PRN Reason: Pain Gabapentin [Neurontin] 1,200 mg PO TID PRN PRN Reason: neuropathy amLODIPine [Norvasc] 5 mg PO DAILY oxyBUTYnin chloride [Ditropan XL] 10 mg PO DAILY hydrOXYzine HCL [Atarax] 25 mg PO TID PRN PRN Reason: Itching Calcium Carbonate/Vitamin D3 [Calcium 500 mg-Vit D3 5 mcg (200 Unit)] 1 each PO DAILY Discharge Medication List Levothyroxine Sodium [Synthroid] 75 mcg PO QAM 05/16/14 [History] Cetirizine HCl [Zyrtec] 10 mg PO DAILY 08/08/17 [History] Albuterol Inhaler [Ventolin Hfa Inhaler] 1 - 2 puff INHALATION Q6H PRN 08/25/18 [History] Fluticasone Propion/Salmeterol [Advair 100-50 Diskus] 1 inhalation PO Q12H PRN 08/25/18 [History] Sertraline HCl [Zoloft] 100 mg PO QAM 08/25/18 [History] Omeprazole 40 mg PO DAILY #30 cap 08/27/18 [Rx] Losartan-Hctz 50-12.5 mg [Hyzaar 50-12.5] 1 tab PO DAILY #0 10/06/19 [Rx] traZODone HCL [Desyrel] 150 mg PO HS 10/08/19 [History] busPIRone HCL [Buspar] 15 mg PO BID 01/10/22 [History] oxyBUTYnin chloride [Ditropan XL] 10 mg PO DAILY 05/24/22 [History] Calcium Carbonate/Vitamin D3 [Calcium 500 mg-Vit D3 5 mcg (200 Unit)] 1 each PO DAILY 01/31/24 [History] Gabapentin [Neurontin] 1,200 mg PO TID PRN 01/31/24 [History] amLODIPine [Norvasc] 5 mg PO DAILY 01/31/24 [History] hydrOXYzine HCL [Atarax] 25 mg PO TID PRN 01/31/24 [History] rOPINIRole HCL [Requip] 0.25 mg PO DIRECTED PRN 01/31/24 [History] Apixaban [Eliquis] 2.5 mg PO BID 30 Days #60 tab 02/06/24 [Rx] Sennosides [Senokot] 2 tab PO DAILY PRN #60 tablet 02/06/24 [Rx] Cyclobenzaprine [Flexeril] 10 mg PO TID PRN #21 tab 02/07/24 [Rx] HYDROcodone/APAP 10-325MG [Oakley 10-325] 1 tab PO Q6HR PRN #28 tab 02/09/24 [Rx] Follow up Appointment(s)/Referral(s): Casey Fofana DO [Doctor of Osteopathic Medicine] - 2 Weeks Activity/Diet/Wound Care/Special Instructions: Weightbearing as tolerated with a walker. Leave dressing intact. Dressing may be removed by home care nurse or by patient in 7 days. Then change dressing twice daily until follow up. May shower with initial dressing intact and after removal. If dressing become saturated, please remove. Recommend use of compression stockings daily until follow up to help prevent swelling and blood clots. May remove at night before sleeping. Please take Eliquis twice daily for 30 days to prevent blood clots. Please follow up with [facility] and call with any questions or concerns, . Discharge Disposition: HOME WITH HOME HEALTH SERVICES
[2024-02-09 10:36] VITALS: TEMP 98.8
[2024-02-09 10:43] LABS: Basophils # (A) 0.02 X 10*3/uL (0.00-0.10); Basophils % (A) 0.4 %; Eosinophils # (A) 0.06 X 10*3/uL (0.04-0.35); Eosinophils % (A) 1.2 %; HCT 29.2 % (37.2-46.3); HGB 9.4 g/dL (12.0-15.0); Lymphocytes # (A) 0.88 X 10*3/uL (0.90-5.00); Lymphocytes % (A) 17.5 %; MCH 27.6 pg (27.0-32.0); MCHC 32.2 g/dL (32.0-37.0); MCV 85.6 FL (80.0-97.0); Mean Platelet Volume 9.3 FL (9.5-12.2); Monocytes # (A) 0.42 X 10*3/uL (0.20-1.00); Monocytes % (A) 8.3 %; NRBC Per 100 WBC 0 X 10*3/uL (0.00-0.01); Neutrophils # (A) 3.63 X 10*3/uL (1.80-7.70); Neutrophils % (A) 72.2 %; Platelet Count 194 X 10*3/uL (140-440); RBC 3.41 X 10*6/uL (4.10-5.20); RDW 14.3 % (11.5-14.5); WBC 5.03 X 10*3/uL (4.50-10.00)
[2024-02-09 13:46] VITALS: BP 127/85; PULSE 82; RESP 15
[2024-02-09] MEDS: HYDROcodone/APAP 7.5-325MG 1 EACH TAB PO PRN (14:39)
--- NOTE | 2024-02-09 14:57 | P.PN ---
Subjective Progress Note Date: 02/09/24 Hospital course: Patient is a pleasant 53-year-old female past medical history of hypertension, hypothyroidism status post partial thyroidectomy, asthma/COPD, GERD status post bariatric surgery, and anxiety with depression. She is currently admitted under orthopedic surgery team status post revision of left total knee arthroplasty. We were consulted for medical management throughout hospitalization. Physical exam: Patient seen and fully evaluated at bedside this morning. She reports no further episodes of headache. Bruising to face improving. Patient reports "finally" having control over her postoperative pain and left knee. She denies having any other complaints at this time. Plan is for discharge home later this afternoon. Vital signs reviewed and stable. General: Nontoxic, no distress and appears stated age. Derm: Skin warm and dry, normal coloration for ethnicity. Head: Normocephalic and symmetric. Patient with periorbital ecchymosis and bruising to right forehead with small laceration over right brow ridge. Eyes: EOM's intact, no lid lag, and anicteric sclera Mouth: no lip lesions, mucus membranes moist Cardiovascular: regular rate and rhythm with normal S1S2, no murmur, positive posterior tibial pulses bilaterally, and cap refill < 2 seconds. Lungs: Respirations even, regular, and unlabored on room air. Lungs CTA bilaterally, no rhonchi, no rales, no wheezing, and no accessory muscle usage. Abdominal: soft, nontender to palpation, no guarding, no appreciable organomegaly Ext: Movement and sensation intact. No gross muscle atrophy, no edema, no contractures. Postoperative dressing/Lawson wrap in place to left knee. Neuro: Speech clear, face symmetrical and CN II-XII grossly intact with no noted focal neuro deficits Psych: Alert and oriented to person, place, time, and situation. Appropriate and pleasant affect. Assessment and Plan of Care: Status post revision of left knee arthroplasty -Management per primary admitting orthopedic surgery team including DVT prophylaxis, pain management, wound/dressing management, weightbearing, and PT/OT. Acute postoperative blood loss anemia -Preoperative hemoglobin 10.5 postoperative hemoglobin currently stable at 9.4. No need for transfusion or further interventions at this time. Headache and facial pain status post trip and fall on 02/02/2024 -CT head negative for acute intercranial process. CT face showing small right forehead soft tissue contusion and age-indeterminate minimally depressed right nasal bone fracture with no surrounding soft tissue swelling. -Discussed CT findings with patient regarding age indeterminant minimally depressed right nasal bone fracture with no surrounding soft tissue edema and patient reports history of nasal bone fracture in past. Patient nontender to nasal bridge on palpation. No further suspicions for acute fracture. -Continue symptomatic care and pain management. -Maintain fall precautions. Hypertension -Monitor vital signs and continue daily medication regimen with amlodipine 5 mg daily and losartan/hydrochlorothiazide 50-12.5 mg daily. Hypothyroidism -Continue daily medication regimen with levothyroxine 75 mcg daily. Anxiety with depression -Continue daily medication regimen with trazodone 150 mg nightly, sertraline 100 mg daily, and BuSpar 15 mg twice daily. Fibromyalgia Chronic pain -Continue daily medication regimen with gabapentin 1200 mg 3 times daily and Requip 0.25 mg daily as needed. Data and imaging reviewed: -CT head negative for acute intercranial process. CT face showing small right forehead soft tissue contusion and age-indeterminate minimally depressed right nasal bone fracture with no surrounding soft tissue swelling. -Vital signs reviewed. Blood pressure 142/70, heart rate 84, respiratory rate 16, temp 98.8 F, and SpO2 of 95% on room air. -Morning labs reviewed showing stable normocytic anemia with hemoglobin of 9.4. Thank you for allowing us to participate in the care of this pleasant patient. Do not hesitate to contact us with questions. Someone can be reached from the [facility] hospitalist group all hours of the day at [phone] or via perfect serve. Patient was seen independently by Nurse Pracitioner. This document was prepared using [employer] dictation software. Please allow for errors in roll scale worker, while rare they do occur. Dylan Levin NP rendered care for this patient independently, reviewed the findings and plan as documented in the note above and agree with plan. I did not physically speak with or examine the patient on this date. Objective - Vital Signs Vital signs: Vital Signs Temp 99.6 F 02/09/24 00:58 Pulse 81 02/09/24 00:58 Resp 17 02/09/24 00:58 BP 147/78 02/09/24 00:58 Pulse Ox 96 02/09/24 00:58 FiO2 Intake & Output 02/08/24 02/09/24 02/09/24 18:59 06:59 18:59 Other: Voiding Method Toilet Toilet # Voids 4 3 - Labs CBC & Chem 7: 02/09/24 06:21 02/08/24 02:54 Labs: Abnormal Lab Results - Last 24 Hours (Table) 02/08/24 02/08/24 Range/Units 02:54 02:54 RBC 3.25 L (4.10-5.20) X 10*6/uL Hgb 9.5 L (12.0-15.0) g/dL Hct 29.7 L (37.2-46.3) % RDW 14.6 H (11.5-14.5) % BUN 5.1 L (9.0-27.0) mg/dL BUN/Creatinine Ratio 8.50 L (12.00-20.00) Ratio Calcium 8.2 L (8.7-10.3) mg/dL
== END 2024-02-09 16:21 | disposition home health service (06) | DRG 467 ==
LOC: 2ORMAIN 11:21 → 4SSUR 17:12
PROVIDERS: ADMIT Orthopaedic Surgery; ATTEND Orthopaedic Surgery
PROC: 0SRD0JA Replacement of Left Knee Joint with Synthetic Substitute, Uncemented, Open Approach (ICD-10-PCS; 2024-02-06)
PROC: 3E0T3BZ Introduction of Anesthetic Agent into Peripheral Nerves and Plexi, Percutaneous Approach (ICD-10-PCS; 2024-02-06)
PROC: 0SPD0JZ Removal of Synthetic Substitute from Left Knee Joint, Open Approach (ICD-10-PCS; principal; 2024-02-06 13:05)
DX: T84.023A Instability of internal left knee prosthesis, initial encounter (principal); D62 Acute posthemorrhagic anemia; E87.1 Hypo-osmolality and hyponatremia; I48.91 Unspecified atrial fibrillation; E89.0 Postprocedural hypothyroidism; I10 Essential (primary) hypertension; J44.89 Other specified chronic obstructive pulmonary disease; F32.A Depression, unspecified; S02.2XXA Fracture of nasal bones, initial encounter for closed fracture; S01.111A Laceration without foreign body of right eyelid and periocular area, initial encounter; F41.9 Anxiety disorder, unspecified; G89.18 Other acute postprocedural pain; K21.9 Gastro-esophageal reflux disease without esophagitis; M79.7 Fibromyalgia; G89.29 Other chronic pain; W01.0XXA Fall on same level from slipping, tripping and stumbling without subsequent striking against object, initial encounter; E78.5 Hyperlipidemia, unspecified; Y79.2 Prosthetic and other implants, materials and accessory orthopedic devices associated with adverse incidents; Z98.84 Bariatric surgery status; Z79.01 Long term (current) use of anticoagulants; Z79.890 Hormone replacement therapy; Z79.899 Other long term (current) drug therapy; Z87.820 Personal history of traumatic brain injury; Z91.81 History of falling
CPT/HCPCS: 64448; 64999; 70450; 70486; 80048; 83735; 85025; 85027; 94760